=== PATIENT | female | born 1930 | race Caucasian/White ===

== ENCOUNTER 2016-05-28 10:39 | Outpatient (CLI) | payer MEDICARE, OTHER | END 2016-05-28 10:40 | disposition home or self-care (01) | DX: K59.09 Other constipation (principal); Z79.899 Other long term (current) drug therapy ==

== ENCOUNTER 2016-08-05 11:30 | Outpatient (CLI) | payer MEDICARE, OTHER | END 2016-08-05 11:31 | disposition home or self-care (01) | DX: Z51.5 Encounter for palliative care (principal); R53.83 Other fatigue; F32.9 Major depressive disorder, single episode, unspecified; R26.2 Difficulty in walking, not elsewhere classified; I69.344 Monoplegia of lower limb following cerebral infarction affecting left non-dominant side; I10 Essential (primary) hypertension; E78.5 Hyperlipidemia, unspecified; M54.6 Pain in thoracic spine; M47.9 Spondylosis, unspecified; K21.9 Gastro-esophageal reflux disease without esophagitis; F48.2 Pseudobulbar affect; Z79.82 Long term (current) use of aspirin; Z79.891 Long term (current) use of opiate analgesic; Z79.899 Other long term (current) drug therapy; Z66 Do not resuscitate ==

== ENCOUNTER 2016-08-19 11:55 | Outpatient (CLI) | payer MEDICARE, OTHER | END 2016-08-19 11:56 | disposition home or self-care (01) | DX: F51.5 Nightmare disorder (principal); R53.83 Other fatigue; F32.9 Major depressive disorder, single episode, unspecified; I69.993 Ataxia following unspecified cerebrovascular disease; I69.344 Monoplegia of lower limb following cerebral infarction affecting left non-dominant side; I10 Essential (primary) hypertension; K21.9 Gastro-esophageal reflux disease without esophagitis; K59.09 Other constipation; F48.2 Pseudobulbar affect; Z66 Do not resuscitate ==

== ENCOUNTER 2017-01-10 12:45 | Outpatient (CLI) | payer MEDICARE, OTHER ==
--- NOTE | 2017-01-10 21:04 | PROVIDER PROGRESS NOTE ---
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 She has residual left sided weakness, left foot drag, some increase in dysphagia last few weeks and increase in fatigue and wondering if had more neuro symptoms. Patient did not follow up with neurologist, and has been mostly homebound since spring visit with palliative care. Patient's anxiety regarding original conversation with PCP, remains a focus of distress, now past her "six months" and has not had a life ending event. Revisited again, looking at risk factors and consideration of further service support, was done in the context of her condition. She had been very focused on the media and the opioid crisis so had stopped taking her hydrocodone 5 mg/ 325 mg APAP and called yesterday with excrutiating pain and bedbound, had been encouraged to take at least a half and education done on proper use in chronic pain syndrome such as she had. Today I find her much relieved, had taken a half this AM and able to sit in chair. She also is complaining of severe GERD at night with taking of Peptobismal without relief, interfering with sleep. Social History - Living Situation Living arrangement: At home Living Situation: With spouse/s.o. (patient alone most days as continues to work to help with finances of daughter; multiple stressors.) Support System: Son last June; daughter with significant health problems, does provide some support with visits; continuing to work; Medications/Allergies - Medications Home Medications: Ambulatory Orders Medication Instructions Recorded Confirmed Hydrochlorothiazide 25 mg PO DAILY 05/08/14 01/11/17 HYDROcod/ACETAM 5/325 [Vicodin 1 ea PO TID PRN 07/18/15 01/11/17 5/325] Losartan Potassium 100 mg PO DAILY 08/08/15 01/11/17 Aspirin [Adult Low Dose Aspirin EC] 81 mg PO DAILY 01/11/17 01/11/17 Bacitracin/Polymyxin B Sulfate 1 applic TOP DAILY PRN 01/11/17 01/11/17 [Bacitracin-Polymyxin Eye Oint] Docusate Sodium 400 mg PO DAILY 01/11/17 01/11/17 Famotidine [Pepcid AC] 10 mg PO DAILY 01/11/17 01/11/17 Senna [Senokot] 34.4 gm PO DAILY 01/11/17 01/11/17 Ubidecarenone [Coenzyme Q-10] 200 mg PO DAILY 01/11/17 01/11/17 - Allergies Allergies/Adverse Reactions: Allergies Allergy/AdvReac Type Severity Reaction Status Date / Time [id number]-[id number] Reductase AdvReac Severe Unknown Verified 01/11/17 11:20 Inhibitor Review of Systems - Constitutional Constitutional: reports: Fatigue (feels fatigue has dramatically increased over last several weeks; worried may be extension of stroke symptoms), Weakness, Weight gain. denies: Fever, Chills - Eyes Eyes: reports: Vision loss (has trouble with "crusting" uses ointment at times with relief; out of rx) - Ears, Nose & Throat Ears, Nose & Throat: reports: Hearing loss, Other (reports intermittent dysphagia; some noted increase difficulty with chewing; following a mechanical soft diet; does not cook much-tend to get take out often) - Cardiovascular Cariovascular: reports: Exertional dyspnea, Decr. exercise tolerance. denies: Irregular heart rate, Chest pain, Orthopnea - Respiratory Respiratory: reports: SOB with exertion. denies: Cough, Orthopnea - Gastrointestinal Gastrointestinal: reports: Constipation (alf; controlled mostly with bowel meds) - Genitourinary Genitourinary: reports: Urgency - Musculoskeletal Musculoskeletal: reports: Back pain (long standing spinal stenosis; usually gets "injections" last one several months ago without relief), Limited range of motion, Muscle weakness - Integumentary Integumentary: reports: Dryness - Neurological Neurological: reports: Memory problems, Pre-existing deficit, Abnormal gait - Psychiatric Psychiatric: reports: Depression, Anxiety (see palliative care discussion) - Endocrine Endocrine: reports: Other (no hx diabetes/hypothyroidsim) - Hematologic/Lymphatic Hematologic/Lymphatic: denies: Recurrent infections - All Other Systems All Other Systems: reports: Reviewed and negative Physical Examination - Vital Signs Temperature: 97.7 C Pulse Rate: 77 Respiratory Rate: 18 O2 Saturation: 95 (ra at rest) Blood Pressure: 122/78 - Physical Exam General Appearance: positive: Mild distress, Anxious Eyes Bilateral: positive: Conjunctivae nml. negative: No scleral icterus ENT: positive: No signs of dehydration, Other (did not observe difficulty with swallowing water at time of visit) Neck: positive: Trachea midline Respiratory: positive: Breath sounds nml, Other (breathlessness with activity of ambulating to BR) Cardiovascular: positive: Regular rate & rhythm Abdomen: positive: Nml bowel sounds, No distention Skin: positive: Pallor Extremities: positive: Other (needing to use lift chair to get from sitting to standing; able to ambulate to bathroom with 4WW; gait stooped; left leg drag; uneven animal trapper but functional;) Neurologic/Psychiatric: positive: Oriented x3, Other (patient has pseudobulbar effect; easily elicited crying; patient finds very embarassing; does not perceive herself as depressed) Palliative Care - POLST Patient has POLST: Yes POLST Status: DNR, Comfort Measures (patient clear on goal no intervention if unable to be independent or live at home; does not want to return to [place]) Pain: Pain worsening, Location (back pain; lower lumbar area), Severity (severe with increase in standing/activity) Drowsiness: Moderate (4-6) (patient sleeping (when able) 12 hours at night; nap 1-2 hours during day) Nausea: None Anxiety: Mild (1-3) Dyspnea: Mild (1-3) Anorexia: None Insomnia: Sleeps poorly (attributes to GERD symptoms) Feelings of wellbeing/Perceived Quality of Life: Worsening (feels acceptable at current level but does continue to decline) Performance Status: Palliative Care Performance Status [50%]. patient spends most of the time in her recliner or bed. She is able to with lift chair independently ambulate with 4WW. Denies any falls though balance impacted. helps her with shower. - Palliative Care Discussion: Patient had been "waiting" for the 6 months ciarra from when she was explained she had a limited life expectancy, though this has been revisited before in our visits, spend time processing her concerns and fears. She has had some functional decline, possibly attributed to her risk of strokes, but no acute changes and they are still managing her care though is difficult on them both. Patient worried about not being independent and needing to go to [place] if worsens or has another stroke; husbands goal to keep her at home, though realistic and does not want to promise something he can't deliver on. With current financial stressors, has not followed through on hiring help he perceives he may as well stay home if spends money on caregiving. Patient remains isolated, daughter visits, few friends. Her "sabianism beliefs" are what keep her going and bring her comfort. Declined though Palliative Care Revenue Specialist. Impression and Recommendations - Palliative Care Impression: This is a homebound 86 year old woman who is living with the sequela of her multiple CVAs. She is at high risk for an end of life event given her history of strokes/hereditary hyperlipidmia and sedentary lifestyle. She presents today with uncontrolled pain secondary to stopping opioids for her spinal stenosis, anxiety, and anticipatory grief. Recommendations/Counseling Done: 1. Spinal stenosis. Pain has been managed before on hydrocodone 5 mg/325 mg; patient did get relief with even the 1/2 tab yesterday and this am. Counseling on opioid use and encouraged to continue; patient reassured with low dose and frequency not concerned about her use, this seem to reassure her. Her pain is intermittent and exacerbated with activity so short acting vs long acting remains appropriate. New Rx written for 90 tabs. 2. GERD. Patient using Pepcid AC only in the AM, instructed to take second dose at PM, reviewed inst. with who does medications. 3. Fatigue, multifactorial in origin. Will go ahead and draw labs today to see if there is anything that might be impacting. 4. Advanced Care Planning. Counseling provided to normalize her feelings of anticipatory grief and vulnerability. Goals and POLST in place. Would hope for a at home if she were to have an "event". Reviewed currently does not meet hospice criteria, though in agreement with her statement "I would be surprised if I were here in 6 months". ADDENDUM: 01/11 0900 am. Call from patient slept well, Pepcid at night helped, she is feeling better overall with having processed her anxiety. Reviewed her labs; some diminished kidney function-reviewed need to improve fluid intake. No other changes at this time, satisfied with plan. Will see in 4-6 weeks unless she contacts me, encouraged to reach out sooner next time (had left it to her when to meet again). Will have TIRE ASSEMBLER reach out as well. Time Spent: 60 minutes with greater than 50% done in counseling for opioid use/safety; review of goals and anticipatory guidance.
== END 2017-01-10 12:46 | disposition home or self-care (01) ==
LOC: PC 12:45
PROVIDERS: ATTEND Nurse Practitioner Adult Health
DX: Z51.5 Encounter for palliative care (principal); I69.954 Hemiplegia and hemiparesis following unspecified cerebrovascular disease affecting left non-dominant side; E78.5 Hyperlipidemia, unspecified; M48.00 Spinal stenosis, site unspecified; K21.9 Gastro-esophageal reflux disease without esophagitis; R53.83 Other fatigue; F41.9 Anxiety disorder, unspecified; F32.9 Major depressive disorder, single episode, unspecified; Z66 Do not resuscitate
CPT/HCPCS: 99350

== ENCOUNTER 2017-01-10 13:50 | Outpatient (CLI) | payer MEDICARE, OTHER ==
[2017-01-10 15:10] LABS: ALBUMIN/GLOBULIN RATIO 1.2 (1.0-2.2); BILIRUBIN,TOTAL 0.4 mg/dL (0.2-1.0); CALCIUM 10.1 mg/dL (8.5-10.3); CREATININE 1.1 mg/dL (0.4-1.0); TOTAL PROTEIN 7.4 g/dL (6.7-8.2)
[2017-01-10 15:12] LABS: BASOPHILS % (AUTO) 0.4 %; EOSINOPHILS # (AUTO) 0.1 10^3/uL (0.0-0.7); EOSINOPHILS % (AUTO) 1.5 %; HCT - HEMATOCRIT 40.1 % (37.0-47.0); HGB - HEMOGLOBIN 13.8 g/dL (12.0-16.0); LYMPHOCYTES # (AUTO) 3.1 10^3/uL (1.5-3.5); LYMPHOCYTES % (AUTO) 36.6 %; MEAN CORPUSCULAR HEMOGLOBIN 30.9 pg (27.0-31.0); MEAN CORPUSCULAR HGB CONC 34.4 g/dL (32.0-36.0); MEAN CORPUSCULAR VOLUME 89.9 fL (81.0-99.0); MEAN PLATELET VOLUME 9.9 fL (7.9-10.8); MONOCYTES # (AUTO) 0.6 10^3/uL (0.0-1.0); NEUTROPHILS # (AUTO) 4.6 10^3/uL (1.5-6.6); NEUTROPHILS % (AUTO) 54.5 %; NUCLEATED RED BLOOD CELLS AUTO 0.1 /100WBC; RED BLOOD COUNT 4.46 10^6/uL (4.20-5.40); RED CELL DISTRIBUTION WIDTH 12.8 % (12.0-15.0); UNCORRECTED WHITE BLOOD COUNT 8.5 x10^3/uL; WHITE BLOOD COUNT 8.5 x10^3/uL (4.8-10.8)
== END 2017-01-10 13:51 ==
LOC: LAB.R 13:50
PROVIDERS: ATTEND Nurse Practitioner Adult Health
DX: Z79.899 Other long term (current) drug therapy (principal)
CPT/HCPCS: 80053; 85025

== ENCOUNTER 2017-02-17 12:15 | Outpatient (CLI) | payer MEDICARE, OTHER ==
--- NOTE | 2017-02-17 17:25 | CONSULTATION NOTE ---
Palliative Care Follow Up - Referral Referring Provider: Nikole Stokes PA-C Time of Visit: [id number] Referral setting: Home (patient is seen in her home setting secondary to it's a taxing and considerable effort to leave the home related to her fatigue and left hemiplegia; difficulty walking) Referral Reason: Left Hemiplegia - Information Sources History/Review of Systems obtained from: Patient Exam limitations: No limitations - History of Present Illness Update Brief HPI Update: This is an 86-year-old woman with a history of multiple strokes, has hereditary hyperlipidemia unable to tolerate statins, presents with left hemiplegia, and severe spinal stenosis. She does have some residual dysphasia, ongoing fatigue , but has had no recurrent acute symptoms of TIAs and stroke. Her pain has improved to the point she has not needed her hydrocodone, and is managing her spinal stenosis and back pain with APAP twice a day. She is also had resolution of her severe GERD at night, with adding Pepcid AC in the evening. Labs did not reveal from last visit anemia, does have some worsening renal function, but does not want further work up or MD visits. Agreed to follow up labs in 3 months. Patient is requesting a [id number] for obtaining a lift chair. She has used one since her original stroke, at this time though is going to pursue follow up with her Medicare benefit. Her height is 5 3-1/2 weight 158. She does meet criteria I will dictate a [id number], she is getting up from would be furniture. Social History - Living Situation Living arrangement: At home Living Situation: With spouse/s.o. Support System: Has hired assistance 2 hours twice a week. Her Charles still remains a primary caregiver. Occasionally they get relief with some support from her daughter. does help her bathe. Medications/Allergies - Medications Home Medications: Ambulatory Orders Medication Instructions Recorded Confirmed Hydrochlorothiazide 25 mg PO DAILY 05/08/14 02/17/17 HYDROcod/ACETAM 5/325 [Vicodin 1 ea PO TID PRN 07/18/15 02/17/17 5/325] Losartan Potassium 100 mg PO DAILY 08/08/15 02/17/17 Aspirin [Adult Low Dose Aspirin EC] 81 mg PO DAILY 01/11/17 02/17/17 Bacitracin/Polymyxin B Sulfate 1 applic TOP DAILY PRN 01/11/17 02/17/17 [Bacitracin-Polymyxin Eye Oint] Docusate Sodium 400 mg PO DAILY 01/11/17 02/17/17 Famotidine [Pepcid AC] 10 mg PO BID 01/11/17 02/17/17 Senna [Senokot] 34.4 gm PO DAILY 01/11/17 02/17/17 Ubidecarenone [Coenzyme Q-10] 200 mg PO DAILY 01/11/17 02/17/17 - Allergies Allergies/Adverse Reactions: Allergies Allergy/AdvReac Type Severity Reaction Status Date / Time Zekwira-Ied-Udv Reductase AdvReac Severe Unknown Verified 01/11/17 11:20 Inhibitor Review of Systems - Constitutional Constitutional: reports: Fatigue, Weight gain (reports eating too many snacks; does not cook have fast food often) - Eyes Eyes: reports: Vision loss, Other (ointment has improved redness; uses) - Ears, Nose & Throat Ears, Nose & Throat: reports: Dry mouth - Cardiovascular Cardiovascular: reports: Decr. exercise tolerance. denies: Chest pain - Respiratory Respiratory: reports: SOB with exertion. denies: Cough - Gastrointestinal Gastrointestinal: reports: Constipation (managed), Good appetite - Genitourinary Genitourinary: denies: Incontinence - Musculoskeletal Musculoskeletal: reports: Stiffness, Limited range of motion (left leg related to hemiplegia; weakness left arm), Muscle weakness, Assistive devices (uses 4 wheeled walker; has to assist from bed), Transfer issues (needing new lift chair; did not go through Medicare; will try and facilitate face to face) - Integumentary Integumentary: reports: Dryness - Neurological Neurological: reports: General weakness, Dizziness (occasional; more balance issues), Memory problems (mild) - Psychiatric Psychiatric: reports: Depression (depressed at times; able to redirect; gets sad about son's last fall; has gia that she depends on; found WOOL HANDLER visit very helpful), Other (bulbar; easily laughs/cries finds embarassing) - Hematologic/Lymphatic Hematologic/Lymphatic: denies: Anemia, Recurrent infections - All Other Systems All Other Systems: reports: Reviewed and negative Physical Exam - Vital Signs Temperature: 97.1 C Pulse Rate: 66 Respiratory Rate: 18 O2 Saturation: 97 (ra @ rest) Blood Pressure: 162/84 - Physical Exam General Appearance: positive: Alert Eyes Bilateral: positive: No lid inflammation, Conjunctivae nml ENT: positive: No signs of dehydration Neck: positive: No JVD, Trachea midline Cardiovascular: positive: Regular rate & rhythm Respiratory: positive: Breath sounds nml Abdomen: positive: Non-tender, Soft, Nml bowel sounds Skin: positive: Pallor, Dryness. negative: Pressure wound Extremities: positive: No pedal edema, Other (unable to weight bear on left leg or use for standing; left arm weakness) Neurologic/Psychiatric: positive: Oriented x3, Mood/affect nml, Weakness Palliative Care - POLST Patient has POLST: Yes POLST Status: DNR, Comfort Measures Pain: Pain improved, Location (mid back; stenosis, has improved using APAP about twice a day; uses vicodin only if severe; feels better overall) Tiredness/Fatigue: Moderate (4-6) (does take naps am and afternoon) Drowsiness/Sedation: None Nausea: None Depression: Mild (1-3) Anxiety: Mild (1-3) Dyspnea: Mild (1-3) (with activity) Anorexia: None Sleep: Sleeps well Constipation: Yes, Managed Feelings of wellbeing/Perceived Quality of Life: Good, Acceptable Impression and Recommendations - Palliative Care Impression: This is an 86-year-old woman who is living with the sequela of her multiple CVAs. This includes left hemiplegia of her left lower extremity and left hemiparesis of her left upper extremity. She is at high risk for an end-of- life event given her history of stroke/hereditary hyperlipidemia and sedentary lifestyle. She does present today with her pain controlled related to her spinal stenosis. She does have improved symptoms from her GERD and her depression is better. Recommendations/Counseling Done: 1. Spinal stenosis. Pain has improved, she is managing mostly with her acetaminophen 500 mg 2 tabs twice daily, she does have the hydrocodone for breakthrough pain if needed. Her pain is intermittent and exacerbated with activity. The lift chair does help her with minimizing the stress on her lower back. 2 GERD. Patient is taking the Pepcid AC twice daily with relief of her symptoms. She is sleeping better. 3. Renal compromise. Patient is pushing fluids, is doing much better with this. Did agree will recheck in 3 months. She is unable to get out for further physician appointments. Patient is satisfied with the plan. 4. Fatigue, multifactorial in origin. She has had some improvement is trying to be more active, this is with some limitation because she is home alone by herself. She does have [employer]. 5. Advanced care planning. She did enjoy the palliative care social workers visit. Remains somewhat anxious about having "independent". Continues want to focus on staying at home, she does perceive her current quality of life as quite acceptable. FACE to FACE Patient is unable to stand on her own secondary to left hemiplegia as a result of a stroke. She needs a lift chair to get from sitting to standing and she cannot bear weight reliably, nor does she have the quad strength, to push off independently. She also has upper extremity weakness and is unable to fully get from sitting to standing as well in any of her chairs. The patient can use and operate the lift chair independently, and once upright she is able to stand and balance and move forward with the assistance of her 4 wheeled walker. The lift chair is prescribed as a treatment to ensure that the patient can safely get from sitting to standing, is able to transfer to her front wheeled walker, and to prevent falls. She has had physical therapy as in intervention. Time Spent: 30 minutes with greater than 50% of this done in counseling regarding depression , pain management, and coordination of care in facilitating [id number] for lift chair.
== END 2017-02-17 12:16 | disposition home or self-care (01) ==
LOC: PC 12:15
PROVIDERS: ATTEND Nurse Practitioner Adult Health
DX: Z51.5 Encounter for palliative care (principal); I69.354 Hemiplegia and hemiparesis following cerebral infarction affecting left non-dominant side; I69.321 Dysphasia following cerebral infarction; M48.04 Spinal stenosis, thoracic region; Z79.891 Long term (current) use of opiate analgesic; K21.9 Gastro-esophageal reflux disease without esophagitis; Z79.82 Long term (current) use of aspirin; K59.00 Constipation, unspecified; R06.09 Other forms of dyspnea; M62.81 Muscle weakness (generalized); F32.9 Major depressive disorder, single episode, unspecified; Z66 Do not resuscitate
CPT/HCPCS: 99348

== ENCOUNTER 2017-04-14 21:19 | Outpatient (CLI) | payer MEDICARE, OTHER ==
--- NOTE | 2017-04-15 12:02 | CONSULTATION NOTE ---
Palliative Care Follow Up - Referral Referring Provider: Nikole Stokes PA-C Time of Visit: [id number] Referral setting: Home (Patient is seen in the home setting secondary is considerable and taxing effort for the patient to leave the home secondary to her left sided weakness as well as back pain.) Referral Reason: Acute on Chronic Back Pain - Information Sources History/Review of Systems obtained from: Patient Exam limitations: No limitations Social History - Living Situation Living arrangement: At home Living Situation: With spouse/s.o. Support System: Does hire occasional shift work as well as her daughter provide support. Her still is working but comes and checks on her frequently. Medications/Allergies - Medications Home Medications: Ambulatory Orders Medication Instructions Recorded Confirmed Hydrochlorothiazide 25 mg PO DAILY 05/08/14 04/15/17 HYDROcod/ACETAM 5/325 [Vicodin 1 ea PO TID PRN 07/18/15 04/15/17 5/325] Losartan Potassium 100 mg PO DAILY 08/08/15 04/15/17 Aspirin [Adult Low Dose Aspirin EC] 81 mg PO BID 01/11/17 04/15/17 Bacitracin/Polymyxin B Sulfate 1 applic TOP DAILY PRN 01/11/17 04/15/17 [Bacitracin-Polymyxin Eye Oint] Docusate Sodium 400 mg PO DAILY 01/11/17 04/15/17 Famotidine [Pepcid AC] 10 mg PO BID 01/11/17 04/15/17 Senna [Senokot] 34.4 gm PO BID 01/11/17 04/15/17 Ubidecarenone [Coenzyme Q-10] 200 mg PO DAILY 01/11/17 04/15/17 Metoprolol Tartrate 25 mg PO BID 04/15/17 04/15/17 - Allergies Allergies/Adverse Reactions: Allergies Allergy/AdvReac Type Severity Reaction Status Date / Time Ueecupr-Yfa-Gse Reductase AdvReac Severe Unknown Verified 01/11/17 11:20 Inhibitor Review of Systems - Constitutional Constitutional: reports: Fatigue, Weight stable - Eyes Eyes: reports: Vision loss - Ears, Nose & Throat Ears, Nose & Throat: reports: Dry mouth - Cardiovascular Cardiovascular: reports: Decr. exercise tolerance. denies: Chest pain, Lightheadedness - Respiratory Respiratory: reports: SOB with exertion. denies: Cough - Gastrointestinal Gastrointestinal: reports: Constipation, Reflux/heartburn, Good appetite. denies: Nausea - Genitourinary Genitourinary: reports: Incontinence (MILD) - Musculoskeletal Musculoskeletal: reports: Back pain, Limited range of motion (left sided lower extremity weakness; limited rom on left arm), Muscle weakness, Assistive devices (uses 4WW) - Integumentary Integumentary: reports: Dryness - Neurological Neurological: reports: General weakness, Abnormal gait, Other (denies increase in difficulty swallowing) - Psychiatric Psychiatric: reports: Depression, Other (pseudobulbar disorder; finds very embarassing wondering about new drug) - Hematologic/Lymphatic Hematologic/Lymphatic: denies: Recurrent infections - All Other Systems All Other Systems: reports: Reviewed and negative Physical Exam - Vital Signs Temperature: 97.6 C Pulse Rate: 84 Respiratory Rate: 18 Blood Pressure: 154/82 - Physical Exam General Appearance: positive: Alert, Mild distress Eyes Bilateral: positive: Normal inspection, No lid inflammation, Conjunctivae nml ENT: positive: No signs of dehydration Neck: positive: No JVD, Trachea midline Cardiovascular: positive: Regular rate & rhythm Respiratory: positive: Breath sounds nml Abdomen: positive: Soft, Nml bowel sounds Skin: positive: Pallor, Dryness. negative: Pressure wound Extremities: positive: Other (Difficulty getting from sitting to standing, uses a lift chair which has improved. Is ambulatory with left foot drag, this does though increase her pain and distress. She does spend more time in bed, she is hoping to build up her strength again, she has had home PT in the past and found it very helpful is wondering if she can initiate again. She [facility]. Does not feel OT is needed at this point in time, she is still doing her upper extremity exercises. But feels she could progress with PT) Neurologic/Psychiatric: positive: Oriented x3, Depressed mood/affect Palliative Care - POLST Patient has POLST: Yes POLST Status: DNR, Comfort Measures Pain: Pain worsening, Location, Pattern (Patient called Te[facility] with increased lower back pain. Has been intermittent in the past. Has not needed to use hydrocodone, except intermittently. She reports now it is painful even with sitting. It is exacerbated with increased activity twisting or weightbearing. She is spending more time in bed. She is using hydrocodone 5 mg/325 mg APAP 3 times daily. She is discouraged with the recurrence of pain. She has had spinal injections in the past but currently cannot get out to receive those.) Tiredness/Fatigue: Moderate (4-6) Drowsiness/Sedation: None Nausea: None Depression: Moderate (4-6) Anxiety: Mild (1-3) Dyspnea: None Anorexia: Mild (1-3) Sleep: Sleeps well Constipation: Yes, Opoid induced, Managed (Current bowel program includes for senna twice daily, to cassette sodium twice daily and uses MiraLAX when no bowel movement in greater than 24-48 hours.) Performance Status: Patient does report decline in function and ambulation. Feels she has had some extension as far as her left lower extremity weakness and increased difficulty with walking. This is also influenced by her pain. Her goals remain as independent as possible, feels like at this point in time she is ready to progress further with PT. She requests that I follow up and see if she would qualify at this point in time. I do believe she would benefit and *providing [id number] for patient's Physical Therapy to provide progressive home exercise program; strengthening and balance work. As well as other pain relieving measures for her lower back pain. - Palliative Care Discussion: Patient is reflective of increased depressive symptoms regarding time of year. She reports she is sensitive to March as this is the time she lost her son. She is quite tearful, she gets quite embarrassed because of her pseudobulbar affect with uncontrolled crying and laughing at times. She is interested in a new drug Nuedexta. She remains quite perseverative on the fact she was given a limited prognosis, she does try to stay in the moment, perceives her quality of life is good though is worsening as far as her increasing dependence. Her does come home and visit during the day to break it up on the days he works, but for the most part patient is fairly isolated Impression and Recommendations - Palliative Care Impression: This is an 86-year-old woman with the sequela of multiple strokes, including left-sided hemiplegia, pseudobulbar affect, and homebound status. She does present with depressive symptoms, an exacerbation of her acute on chronic back pain, as well as some decline in her functional status. She currently perceives her quality of life is acceptable, but very pragmatic about the seriousness of her situation. Recommendations/Counseling Done: 1. Hypertension. Patient was quite distressed as her blood pressure was noted on her wrist blood pressure cuff 170/104. I did do a manual check her blood pressure was 154/82 and was reassured. Had her demonstrate how she was using it and adjusted this. Her blood pressure cuff with the adjustments and education on how to use it properly did read fairly accurately. This is quite reassuring to her as she is really quite anxious about having another stroke. 2. Acute on chronic back pain. Patient quite fearful to take more than a full tab 3 times a day of the hydrocodone 5 mg/325 mg of APAP. Discussed strategies including use of heat, repositioning, and will explore if physical therapy is available for her to see in the home setting. Did review for acute or unrelieved pain could have a second tab, she did acknowledge this and understanding. 3. 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 She has increased her bowel program as directed counseling regarding proper use of bowel meds and strategies to manage. She has had long-term constipation currently she has been going daily with her adjustments we have made over the phone previously. 4. Depression. Patient does get quite embarrassed with her pseudobulbar affect , she does not perceive herself as significantly depressed though certainly has depressive symptoms. We did discuss benefits and burdens of starting antidepressant, she did decline in the and as she feels she is quite sensitive medications. She is going to though initiate light therapy counseling regarding proper use of this 30 minutes every morning proper positioning and encouraged to do this on a regular basis. She is interested in the medication Nuedexta, and follow-up in looking it does actually interact with quite a few of her medications, I will follow up with her PCP Nikole Stokes as they have had conversations regarding this before. I suspect related to the cost as well as the side effect profile may not be the best thing to move forward. 5. Advanced care planning. Patient does have a MEDARDO ST in place. She reports she has good support through her friends and family. She continues to be quite anxious about having a recurrent stroke or becoming more dependent. Counseling to normalize her current feelings of grief and loss and anxiety regarding this. 6. Functional decline. Patient would benefit from home physical therapy in the home, who progress lower extremity strengthening, fall recovery, and other ways to address her back pain. [facility] to see if willing to resume services. If yes will have primary care provider send order. Face-to -face provided. Time Spent: 45 minutes with greater than 50% of this done in counseling regarding depression , pain management, and anticipatory guidance.
== END 2017-04-14 21:20 | disposition home or self-care (01) ==
LOC: PC 21:19
PROVIDERS: ATTEND Nurse Practitioner Adult Health
DX: Z51.5 Encounter for palliative care (principal); G89.29 Other chronic pain; I69.354 Hemiplegia and hemiparesis following cerebral infarction affecting left non-dominant side; F48.2 Pseudobulbar affect; I10 Essential (primary) hypertension; K59.03 Drug induced constipation; T40.2X5D Adverse effect of other opioids, subsequent encounter; F32.9 Major depressive disorder, single episode, unspecified; M48.061 Spinal stenosis, lumbar region without neurogenic claudication
CPT/HCPCS: 99349

== ENCOUNTER 2017-06-21 12:20 | Outpatient (CLI) | payer MEDICARE, OTHER ==
--- NOTE | 2017-06-21 21:02 | CONSULTATION NOTE ---
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 There had been some distress expressed by the patient, as she been getting home physical therapy, and they have reported her blood pressures is fairly high, patient's blood pressure reading is a wrist cuff, patient was educated how to use it appropriately, and the numbers have been between 130 and 145, she is pleased with this and today her blood pressure is 142/72. There had been some conversation about adjusting her medications, patient dislikes change, and has been quite resistant to looking at doing something different. Currently her blood pressure readings are within a safe limit, will leave them as is and this is reassuring to patient. Patient does report increased back pain over the last several weeks, has been using the hydrocodone 5/325 mg 1 tab 3 times a day, though she still has residual pain as it only lasts about 4-5 hours. She is comfortable laying flat , is exacerbated when she gets up in this movement, she no longer is able to get in for her "shots" she been getting previously that had given her at least some relief. She does not identify any kind of event but does admit to increased left-sided weakness, unable to discern anything more than a few subtleties compared to previous exams, but patient is convinced she is doing much more poorly, she is having more difficulty getting from sitting to standing which does make it difficult for toileting. Her continues to work on a fairly regular basis, she is home for long periods of time, this makes him quite anxious as she is had a hard few days. Patient's other presenting symptom over the last few days has been increased GERD, we did discuss some exacerbating factors, including coffee in bed flat first thing in the morning, she does intermittently use Pepto-Bismol in addition to her Pepcid. She would like to try a different medication for her GERD. Social History - Living Situation Living arrangement: At home Living Situation: With spouse/s.o. (Patient's Charles is quite devoted, they have been for 46 years, he continues to work those several times so weak, but does come home at lunchtime to check on her.) Medications/Allergies - Medications Home Medications: Ambulatory Orders Medication Instructions Recorded Confirmed Hydrochlorothiazide 25 mg PO DAILY 05/08/14 06/21/17 HYDROcod/ACETAM 5/325 [Vicodin 1 ea PO Q4HR PRN 07/18/15 06/21/17 5/325] Losartan Potassium 100 mg PO DAILY 08/08/15 06/21/17 Aspirin [Adult Low Dose Aspirin EC] 81 mg PO BID 01/11/17 06/21/17 Bacitracin/Polymyxin B Sulfate 1 applic TOP DAILY PRN 01/11/17 06/21/17 [Bacitracin-Polymyxin Eye Oint] Docusate Sodium 400 mg PO DAILY 01/11/17 06/21/17 Senna [Senokot] 34.4 gm PO BID 01/11/17 06/21/17 Ubidecarenone [Coenzyme Q-10] 200 mg PO DAILY 01/11/17 06/21/17 Metoprolol Tartrate 25 mg PO BID 04/15/17 06/21/17 Omeprazole 20 mg PO BID 06/22/17 06/22/17 - Allergies Allergies/Adverse Reactions: Allergies Allergy/AdvReac Type Severity Reaction Status Date / Time Izhiapl-Ytf-Sjb Reductase AdvReac Severe Unknown Verified 01/11/17 11:20 Inhibitor Review of Systems - Constitutional Constitutional: reports: Fatigue, Weakness (reports increase weakness left side for about 2 weeks; gradual), Poor appetite, Weight stable - Eyes Eyes: reports: Vision loss - Ears, Nose & Throat Ears, Nose & Throat: reports: Dry mouth - Cardiovascular Cardiovascular: reports: Decr. exercise tolerance - Respiratory Respiratory: denies: Cough, Orthopnea - Gastrointestinal Gastrointestinal: reports: Constipation (controlled on current regimen), Nausea (intermittent), Reflux/heartburn (worsened for 2 weeks "feels all inflamed"), Poor appetite, Early satiety - Genitourinary Genitourinary: reports: Frequency - Musculoskeletal Musculoskeletal: reports: Back pain (exacerbated for about 2 weeks; starts with ambulation and being upright in AM), Muscle aches, Stiffness, Limited range of motion (left side weaker per report;), Muscle weakness, Assistive devices (uses walker for short distances in home; spends most of the time in recliner or bed) - Integumentary Integumentary: reports: Dryness - Neurological Neurological: reports: General weakness, Abnormal gait. denies: Headache - Psychiatric Psychiatric: reports: Depression, Anxiety - Hematologic/Lymphatic Hematologic/Lymphatic: denies: Bruising, Recurrent infections - All Other Systems All Other Systems: reports: Reviewed and negative Physical Exam - Vital Signs Temperature: 98.4 C Pulse Rate: 72 Respiratory Rate: 18 O2 Saturation: 96 (ra @ rest) Blood Pressure: 142/72 - Physical Exam General Appearance: positive: No acute distress, Anxious Eyes Bilateral: positive: Other (conjuntivae slightly reddened-reports increase irritation even with ointment) ENT: positive: No signs of dehydration Neck: positive: No JVD, Trachea midline, Stiff neck (limited ROM) Cardiovascular: positive: Regular rate & rhythm Respiratory: positive: Breath sounds nml Abdomen: positive: Non-tender, Soft, Nml bowel sounds Skin: positive: Pallor, Dryness Extremities: positive: No pedal edema, Other (feet very cold to touch). 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 negative: Facial droop Palliative Care - POLST Patient has POLST: Yes POLST Status: DNR Pain: Pain worsening, Location (reports lower back focus of pain; "hurts all over";) Tiredness/Fatigue: Moderate (4-6) Drowsiness/Sedation: Mild (1-3) Nausea: Mild (1-3) (related to GERD) Depression: Moderate (4-6) Anxiety: Moderate (4-6) Dyspnea: Mild (1-3) Anorexia: Mild (1-3) Sleep: Variable sleep pattern Constipation: Yes, Opoid induced, Managed Feelings of wellbeing/Perceived Quality of Life: Fair, Acceptable, Worsening Performance Status: Patient is mostly in her recliner or in bed, her does assist her with bathing, and now up and down off the toilet. She is having increased left- sided weakness and back pain which is limiting her mobility and also her confidence. She reports she has not had any falls. I would put her at a PPS of 40% - Palliative Care Discussion: Patient's perception is she is "going downhill", she has hit a rough patch as far as increased left-sided weakness. She is unable to recall any event, but does feel some changes as well as an exacerbation in her pain. She does remained somewhat isolated, she reports her energy is quite low, she can only tolerate small amounts of activity as well as even interaction with friends and family particularly on the phone. She is not particularly distressed by this rather pragmatic. Continues to focus on trying to stay positive, he does rely on her family and friends for support Impression and Recommendations - Palliative Care Impression: This is an 86-year-old woman with the sequela of multiple strokes, including left-sided hemiplegia, pseudobulbar affect, and homebound status. She does present today with the neck exacerbation of acute on chronic back pain, as well as continued decline in her functional status. She reports increased distress with her GERD, and like to alternate her medications and response. Will continue to provide palliative care support as it is a taxing and considerable effort for her to leave the home, but did encourage her if able to make an appointment and establish with new PCP Dr. Maldonado Recommendations/Counseling Done: 1. Acute on chronic back pain. Patient does have severe lumbar spinal stenosis , this does appear to be exacerbated with activity. She is trying her home exercise program, she is getting relief with intermittent hydrocodone 5 mg/325 mg APAP. Did encourage her to time her medication for when she is up and prior to activity. 2. Constipation related to opioid use. She is managing her bowel meds senna S/ DOS and titrating appropriately. She reports she has not needed further intervention at this point in time 3. GERD. Counseling regarding dietary modifications including cutting back on coffee particularly on empty stomach laying flat. She is dependent on her for food prep, he does admit to not being a cook, they often have fast food or take out, this most likely is adding to her difficulties. She has been on omeprazole previously does not recall why changed (PPI), currently on Pepcid ([id number]), will trial a course of the omeprazole 20 mg BID, and she will make an appt with Dr. Maldonado for further work up if not improved. 4. Hypertension. Patient's current regimen does appear to be managing her blood pressures within acceptable limits, patient does get distressed with any kind of change, she is checking on a regular basis and has not had any trends as far as escalating up. We will continue to monitor, she does know to notify me and/or her PCP if remains elevated or creeping up above 140/80 on a regular basis. 5. Advanced care planning. Patient does have high risk factors for recurrent stroke or the sequela of a fall. She is quite pragmatic, and continues with focusing on the positive, spending time with family/friends, though is stressed about being a burden or loosing further independence. 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 Time Spent: 30 minutes with greater than 50% of this done in counseling, reviewing symptom burden, addressing psychosocial distress and anticipatory guidance
== END 2017-06-21 12:21 | disposition home or self-care (01) ==
LOC: PC 12:20
PROVIDERS: ATTEND Nurse Practitioner Adult Health
DX: Z51.5 Encounter for palliative care (principal); M54.5 Low back pain; G89.29 Other chronic pain; K59.03 Drug induced constipation; T40.2X5D Adverse effect of other opioids, subsequent encounter; K21.9 Gastro-esophageal reflux disease without esophagitis; I10 Essential (primary) hypertension; I69.354 Hemiplegia and hemiparesis following cerebral infarction affecting left non-dominant side; M48.061 Spinal stenosis, lumbar region without neurogenic claudication; Z79.82 Long term (current) use of aspirin; Z79.891 Long term (current) use of opiate analgesic; R53.83 Other fatigue; M62.81 Muscle weakness (generalized); F32.9 Major depressive disorder, single episode, unspecified; F41.9 Anxiety disorder, unspecified; I69.30 Unspecified sequelae of cerebral infarction; F48.2 Pseudobulbar affect; Z66 Do not resuscitate
CPT/HCPCS: 99348

== ENCOUNTER 2017-08-16 12:45 | Outpatient (CLI) | payer MEDICARE, OTHER ==
--- NOTE | 2017-08-16 20:20 | CONSULTATION NOTE ---
Palliative Care Follow Up - Referral Referring Provider: Nikole FUNES/Dr. 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 She is also had progressive pain related to her severe lumbar spinal stenosis, has been more limited as far as her fatigue, and continues to be mostly homebound she has limited functional status. She is able to ambulate short distances on a flat surface with her 4 wheeled walker, her continues to be employed, she is home sometimes by herself. She does have [employer] for support. 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 She is aware of the seriousness of her situation, though was told at some point her prognosis was poor and she still here. Her goal is to remained at home, and focus on quality of life issues. Social History - Living Situation Living arrangement: At home Living Situation: With spouse/s.o. Support System: Close to family, still working and patient home during day by self. Has [place]. Has hired housekeeping assistance. Medications/Allergies - Medications Home Medications: Ambulatory Orders Medication Instructions Recorded Confirmed Hydrochlorothiazide 25 mg PO DAILY 05/08/14 08/16/17 HYDROcod/ACETAM 5/325 [Vicodin 1 ea PO Q4HR PRN 07/18/15 08/16/17 5/325] Losartan Potassium 100 mg PO DAILY 08/08/15 08/16/17 Aspirin [Adult Low Dose Aspirin EC] 81 mg PO BID 01/11/17 08/16/17 Bacitracin/Polymyxin B Sulfate 1 applic TOP DAILY PRN 01/11/17 08/16/17 [Bacitracin-Polymyxin Eye Oint] Docusate Sodium 400 mg PO DAILY 01/11/17 08/16/17 Senna [Senokot] 34.4 gm PO DAILY 01/11/17 08/16/17 Ubidecarenone [Coenzyme Q-10] 200 mg PO DAILY 01/11/17 08/16/17 Metoprolol Tartrate 25 mg PO BID 04/15/17 08/16/17 Omeprazole 20 mg PO DAILY PM PRN 06/22/17 08/16/17 Erythromycin Base [Erythromycin 1 applic EACHEYE DAILY PRN 08/16/17 08/16/17 Ophthalmic Ointment] Triamcinolone 0.1% Cream [Kenalog 1 applic TOP BID PRN 08/16/17 08/16/17 0.1% Cream] - Allergies Allergies/Adverse Reactions: Allergies Allergy/AdvReac Type Severity Reaction Status Date / Time [id number]-[id number] Reductase AdvReac Severe Unknown Verified 01/11/17 11:20 Inhibitor Review of Systems - Constitutional Constitutional: reports: Fatigue (worsening; attributes to side effects of stroke), Weight gain (thinks has gained about 10 pounds) - Eyes Eyes: reports: Corrective lenses - Ears, Nose & Throat Ears, Nose & Throat: reports: Other (denies dysphagia; watched what eats) - Cardiovascular Cardiovascular: reports: Decr. exercise tolerance, Other (blood pressures have been in acceptable range). denies: Chest pain, Edema - Respiratory Respiratory: reports: SOB with exertion. denies: Cough, SOB at rest - Gastrointestinal Gastrointestinal: reports: Constipation (controlled with bowel program), Reflux/ heartburn (improved; using omeprazole only as needed), Good appetite. denies: Nausea - Genitourinary Genitourinary: denies: Incontinence - Musculoskeletal Musculoskeletal: reports: Back pain, Stiffness, Limited range of motion (left sided weakness), Muscle weakness, Assistive devices (uses 4WW in home; wheelchair if goes out) - Integumentary Integumentary: reports: Rash (intermittent uses triamcinolone with relief;) - Neurological Neurological: reports: General weakness. denies: Headache, Dizziness, Memory problems - Psychiatric Psychiatric: denies: Depression (has blue days;but denies depressive symptoms) - Endocrine Endocrine: denies: Diabetes type 2, Hypothyroidism - Hematologic/Lymphatic Hematologic/Lymphatic: denies: Recurrent infections - All Other Systems All Other Systems: reports: Reviewed and negative Physical Exam - Vital Signs Temperature: 98.4 C Pulse Rate: 73 Respiratory Rate: 18 O2 Saturation: 98 (ra @rest) Blood Pressure: 132/80 - Physical Exam General Appearance: positive: No acute distress Eyes Bilateral: positive: No lid inflammation, Conjunctivae nml, Other (eyes water easily) ENT: positive: No signs of dehydration Neck: positive: No JVD, Trachea midline Cardiovascular: positive: Regular rate & rhythm Respiratory: positive: Breath sounds nml Abdomen: positive: Soft Skin: positive: Pallor, Dryness Extremities: positive: No pedal edema, Other (patient with some difficulty getting sitting to standing; gait uneven; left side dragging but functional) Neurologic/Psychiatric: positive: Oriented x3, Mood/affect nml Palliative Care - POLST Patient has POLST: Yes POLST Status: DNR, Comfort Measures Pain: Pain worsening, Location (patient feels back pain worsening; increased pain with standing and unable to tolerate more than 10 minutes. Using the hydrocodone 5 mg/325 mg APAP 2-3 times a day, with relief. Finding herself more time in bed.) Tiredness/Fatigue: Severe (7-10) (attributes to "post stroke" issues; even talking on phone at times finds fatigue) Drowsiness/Sedation: Mild (1-3) Nausea: None Depression: Mild (1-3) Anxiety: Moderate (4-6) Dyspnea: Mild (1-3) Anorexia: None Sleep: Sleeps well Constipation: Yes, Opoid induced, Managed Feelings of wellbeing/Perceived Quality of Life: Fair, Acceptable, Worsening Performance Status: Patient spends most of time in bed/recliner. does assist with bathing, he does meal prep but is "not a cook" use fast food quite a bit. Does have practice architect that comes weekly, feels can ask and afford more help from her if needed. Is able to ambulate on flat surface in house for short distances, has back pain and she is worried about asking him to assist her as he might not be able to or hurt himself. - Palliative Care Discussion: She continues to be distressed with prognosis given over a year ago about 2 weeks to 6 months. Nikole FUNES has since left, encouraged to make appointment with Dr. Maldonado so has PCP support. Problem solved to have caregiver to provide assistance with transportation. Patient aware of slight functional decline, but no acute symptoms of recurrent CVAs, but aware at risk does not want to end up in intermediate if possible, but wants what best for her . Impression and Recommendations - Palliative Care Impression: This is a hanna 86 year old woman with residual symptoms of multiple strokes with mild left hemiplegia, perceived progressive fatigue and poor activity tolerance, and underlying chronic back pain related to lumbar stenosis. Patient lives a fairly solitary isolated life, remains fairly upbeat, does have family support. Palliative care providing intermittent home visit secondary considerable and taxing effort to get to PCP, as well as counseling for symptom management. Recommendations/Counseling Done: 1.Acute on chronic back pain secondary lumbar spinal stenosis. She is managing with intermittent hydrocodone 5 mg/725 mg APAP 2-3 times a day, she is less able to participate in home exercise program, and spending more time in bed. 2. GERD. Reports symptoms have improved over the last few weeks, only using omeprazole as needed, has made some dietary adaptations but limited given the fact her is doing the cooking, and often uses fast food. 3. Hypertension. Patient's current regimen does appear to managing her blood pressures within acceptable limits. Patient is quite variable when she is stressed. No changes needed at this time. 5. Advanced care planning. Patient does have high risk factors for recurrent stroke with the sequela of a fall. She remains quite pragmatic, have recommended though she follow up with her identified new PCP, Dr. Maldonado. Problem solving done regarding having assistance with transportation, but at the various is she is worried about her and been able to manage the wheelchair. She will make an appointment in follow-up. Did reassure her can see her on a regular basis as needs come up, particularly since managing her pain medications. Time Spent: 45 minutes with greater than 50% of this done in counseling regarding pain and management of depression, review of medications, and anticipatory guidance.
== END 2017-08-16 12:46 | disposition home or self-care (01) ==
LOC: PC 12:45
PROVIDERS: ATTEND Nurse Practitioner Adult Health
DX: Z51.5 Encounter for palliative care (principal); G89.29 Other chronic pain; M54.9 Dorsalgia, unspecified; K21.9 Gastro-esophageal reflux disease without esophagitis; I10 Essential (primary) hypertension; I69.354 Hemiplegia and hemiparesis following cerebral infarction affecting left non-dominant side; E78.4 Other hyperlipidemia; Z79.82 Long term (current) use of aspirin; Z79.891 Long term (current) use of opiate analgesic; M62.81 Muscle weakness (generalized); K59.03 Drug induced constipation; T40.2X5D Adverse effect of other opioids, subsequent encounter; Z66 Do not resuscitate
CPT/HCPCS: 99349

== ENCOUNTER 2017-10-27 14:06 | Outpatient (CLI) | payer MEDICARE, OTHER | END 2017-10-27 14:07 | disposition EMS.NT | LOC: EMS 14:06 | PROVIDERS: ATTEND Surgery | DX: Z03.89 Encounter for observation for other suspected diseases and conditions ruled out (principal) ==

== ENCOUNTER 2017-11-04 11:30 | Outpatient (CLI) | payer MEDICARE, OTHER ==
--- NOTE | 2017-11-04 17:01 | CONSULTATION NOTE ---
Palliative Care Follow Up - Referral Referring Provider: Dr. 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 She presents today with increased symptoms and pain from her hemorrhoids, a recent fall, and continued difficulty with progressive back pain. She does perceive that she is doing fairly well, though does feel like her fatigue is worsening, she is sleeping more, and having some difficulty with word finding and speech at the end of the day. Social History - Living Situation Living arrangement: At home Living Situation: With spouse/s.o. Support System: She lives with her Charles, he is very hard of hearing, he absolutely adores her. He does still work some, and she is home alone during the day, but has people frequently checking on her as well as [employer].She is quite distressed as her daughter is at [facility] with a recent stroke, at age 28 she had brain surgery for abscesses and they thought she was can lose her then but has continued to live at age 63, so is quite grateful but is quite anxious that she is going to get home and recover. Medications/Allergies - Medications Home Medications: Ambulatory Orders Medication Instructions Recorded Confirmed Hydrochlorothiazide 25 mg PO DAILY 05/08/14 11/04/17 HYDROcod/ACETAM 5/325 [Vicodin 1 ea PO Q4HR PRN 07/18/15 11/04/17 5/325] Losartan Potassium 100 mg PO DAILY 08/08/15 11/04/17 Aspirin [Adult Low Dose Aspirin EC] 81 mg PO BID 01/11/17 11/04/17 Docusate Sodium 400 mg PO DAILY 01/11/17 11/04/17 Senna [Senokot] 34.4 gm PO DAILY 01/11/17 11/04/17 Ubidecarenone [Coenzyme Q-10] 200 mg PO DAILY 01/11/17 11/04/17 Metoprolol Tartrate 25 mg PO BID 04/15/17 11/04/17 Omeprazole 20 mg PO BID 06/22/17 11/04/17 Erythromycin Base [Erythromycin 1 applic EACHEYE DAILY PRN 08/16/17 11/04/17 Ophthalmic Ointment] Triamcinolone 0.1% Cream [Kenalog 1 applic TOP BID PRN 08/16/17 11/04/17 0.1% Cream] - Allergies Allergies/Adverse Reactions: Allergies Allergy/AdvReac Type Severity Reaction Status Date / Time Qmsblmi-Boo-Lqs Reductase AdvReac Severe Unknown Verified 01/11/17 11:20 Inhibitor Review of Systems - Constitutional Constitutional: reports: Fatigue (worsening, needing more naps), Weakness, Weight gain - Ears, Nose & Throat Ears, Nose & Throat: reports: Postnasal drainage, Dry mouth - Cardiovascular Cardiovascular: reports: Decr. exercise tolerance. denies: Chest pain, Edema - Respiratory Respiratory: denies: Cough, SOB at rest - Gastrointestinal Gastrointestinal: reports: Constipation (more hardened stool and straining; exacerbated her hemmorhoids/no xiomara bleeding just discomfort), Good appetite. denies: Abdominal pain, Nausea, Reflux/heartburn (currently controlled on med) - Genitourinary Genitourinary: denies: Incontinence - Musculoskeletal Musculoskeletal: reports: Back pain (Unable to tolerate standing greater than 5- 10 minutes without severe sharp shooting pain. At rest patient is without pain) , Muscle weakness (reports some increase in weakness left side from baseline; no acute changes), Assistive devices (Uses walker to ambulate through house.Does spend most of her time sitting in her recliner and/or in bed napping. ) - Integumentary Integumentary: reports: Dryness - Neurological Neurological: reports: General weakness, Memory problems (STM but A and O x3) - Psychiatric Psychiatric: denies: Depression, Anxiety - Hematologic/Lymphatic Hematologic/Lymphatic: denies: Recurrent infections - All Other Systems All Other Systems: reports: Reviewed and negative Physical Exam - Vital Signs Temperature: 97.7 C Pulse Rate: 65 Respiratory Rate: 18 O2 Saturation: 96 (ra @ rest) Blood Pressure: 138/70 - Physical Exam General Appearance: positive: No acute distress, Alert Eyes Bilateral: positive: Normal inspection ENT: positive: No signs of dehydration Neck: positive: No JVD, Trachea midline Cardiovascular: positive: Regular rate & rhythm Respiratory: positive: Breath sounds nml Abdomen: positive: Non-tender, Soft, Nml bowel sounds Skin: positive: Pallor, Dryness Extremities: positive: No pedal edema Neurologic/Psychiatric: positive: Oriented x3, Mood/affect nml, Slurred/abnml speech (mild only). negative: Facial droop Palliative Care - POLST Patient has POLST: Yes POLST Status: DNR, Comfort Measures Pain: Pain worsening, Location (back with standing;) Tiredness/Fatigue: Moderate (4-6) Drowsiness/Sedation: Mild (1-3) Nausea: None Depression: Mild (1-3) Anxiety: Mild (1-3) Dyspnea: None Anorexia: None Sleep: Sleeps well Constipation: Yes, Opoid induced, Intermittent constipation Feelings of wellbeing/Perceived Quality of Life: Fair, Acceptable, No change Performance Status: Patient had a fall, did need assistance up. Attributes the fall fact she had new slippers on, tripped over them. She knew "it was a bad idea". She denies any residual injuries. Her does help her with bathing, she is independent and ambulating through the house with her 4 wheeled walker. She cannot tolerate standing for long periods of time, so has to pace her activities. - Palliative Care Discussion: Patient does present with anxiety, this is mostly related to current situation with her daughter. She herself feels like her current quality of life is acceptable. She does tire easily, and often needs to put limitations on her visitors. She does like to talk, she uses her iPad for her programs, she has a great gia, and feels her life is limited that she is quite grateful. She does understand the seriousness of her condition, is grateful to have made it to her 87th birthday, and continues to strive to focus on one day at a time. Impression and Recommendations - Palliative Care Impression: This is a hanna 87-year-old woman who continues to is somewhat limited as far as her functional status as a result of the residual symptoms of multiple strokes and her left hemiplegia. She does have moderate symptom burden with progressive fatigue, poor activity tolerance and underlying chronic back pain related to her spinal stenosis. Palliative care continue to provide intermittent home visit secondary considerable effort to get to PCP, as well as counseling for symptom management. Recommendations/Counseling Done: 1.Chronic back pain secondary to spinal stenosis. Patient is using 2-3 hydrocodone/APAP appropriately through the day. She does have fluctuating pain but it is exacerbated with increased activity, she did have increased pain for several days after her fall this is since resolving. Prescription was provided 120 tabs. 2. Hemorrhoids secondary to constipation. Patient does take 4 tabs of senna at bedtime as well as 2 softeners daily. Instructed to increase her softeners, does not want to try MiraLAX. Given prescription for Anucort HC suppositoriesTo use 1 suppository nightly for 1 week. Also instructed on over- the-counter hemorrhoidal suppositories versus external cream. Encouraged increase fluids and fiber to decrease irritation. 3. Hypertension patient's current regimen does appear to be managing her blood pressures within acceptable limits. No changes needed at this time. 4. GERD. Currently controlled. 5. Advanced care planning. Patient does have high risk factors for recurrent stroke with the sequela also of a fall. She continues to remain quite pragmatic , chooses to focus on the positive, does recognize the seriousness of her illness. She does have a MEDARD[address] ST in place, at this point would not want to be rehospitalized or have her life extended particularly if she had more deficits. Time Spent: 30 minutes with greater than 50% of this done in counseling regarding his symptoms and anticipatory guidance
== END 2017-11-04 11:31 | disposition home or self-care (01) ==
LOC: PC 11:30
PROVIDERS: ATTEND Nurse Practitioner Adult Health
DX: Z51.5 Encounter for palliative care (principal); G89.29 Other chronic pain; M48.061 Spinal stenosis, lumbar region without neurogenic claudication; K64.9 Unspecified hemorrhoids; K59.00 Constipation, unspecified; I10 Essential (primary) hypertension; K21.9 Gastro-esophageal reflux disease without esophagitis; I69.354 Hemiplegia and hemiparesis following cerebral infarction affecting left non-dominant side; R53.1 Weakness; E78.4 Other hyperlipidemia; R53.83 Other fatigue; Z66 Do not resuscitate; Z79.891 Long term (current) use of opiate analgesic; Z79.82 Long term (current) use of aspirin; Z79.2 Long term (current) use of antibiotics; Z91.81 History of falling
CPT/HCPCS: 99348

== ENCOUNTER 2018-01-10 11:45 | Outpatient (CLI) | payer MEDICARE, OTHER ==
--- NOTE | 2018-01-10 17:40 | CONSULTATION NOTE ---
Palliative Care Follow Up - Referral Referring Provider: Dr. 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 She reports intensity of the pain has increased, she is having less ability to tolerate standing greater than 5 minutes, she feels her legs are much weaker, and she is mostly chair and bedbound. She is using the hydrocodone 5 mg/ acetaminophen 325 mg about 3 times a day with good relief. She has no pain and bad and no pain in her recliner. It is with weightbearing that is most problematic for her. She is still ambulating very short distances to the bathroom, does have standby assist when her is home, and wears Lifeline when he has not. She does perceive her fatigue is worsening, she does admit to some depression, and does have some increased dizziness with standing. Social History - Living Situation Living arrangement: At home Living Situation: With spouse/s.o. Support System: Her spells is elderly as well, but continues to work related to financial stressors. He himself is hurt his back recently, she is quite concerned as he is her primary caregiver. They have hired some assistance couple times a week, this is been very much helpful for her, she is no longer able to shower so is helping her with bit baths and does errands as well as housecleaning Medications/Allergies - Medications Home Medications: Ambulatory Orders Medication Instructions Recorded Confirmed Hydrochlorothiazide 25 mg PO DAILY 05/08/14 11/04/17 HYDROcod/ACETAM 5/325 [Vicodin 1 ea PO Q4HR PRN 07/18/15 11/04/17 5/325] Losartan Potassium 100 mg PO DAILY 08/08/15 11/04/17 Aspirin [Adult Low Dose Aspirin EC] 81 mg PO BID 01/11/17 11/04/17 Docusate Sodium 400 mg PO DAILY 01/11/17 11/04/17 Senna [Senokot] 34.4 gm PO DAILY 01/11/17 11/04/17 Ubidecarenone [Coenzyme Q-10] 200 mg PO DAILY 01/11/17 11/04/17 Metoprolol Tartrate 25 mg PO BID 04/15/17 11/04/17 Omeprazole 20 mg PO BID 06/22/17 11/04/17 Erythromycin Base [Erythromycin 1 applic EACHEYE DAILY PRN 08/16/17 11/04/17 Ophthalmic Ointment] Triamcinolone 0.1% Cream [Kenalog 1 applic TOP BID PRN 08/16/17 11/04/17 0.1% Cream] - Allergies Allergies/Adverse Reactions: Allergies Allergy/AdvReac Type Severity Reaction Status Date / Time Myobsgf-Khw-Cka Reductase AdvReac Severe Unknown Verified 01/11/17 11:20 Inhibitor Review of Systems - Constitutional Constitutional: reports: Fatigue, Weight loss (152; reports she has cut out sweets this is intentional decline). denies: Fever - Eyes Eyes: reports: Vision loss - Cardiovascular Cardiovascular: reports: Lightheadedness (with standing). denies: Edema - Respiratory Respiratory: reports: SOB with exertion. denies: SOB at rest - Gastrointestinal Gastrointestinal: reports: Constipation (controls with Senna/LEIDA), Good appetite (poor diet; does not cook and often do take out), Other ( reports hemmorhoids manageable at this time) - Genitourinary Genitourinary: denies: Incontinence - Musculoskeletal Musculoskeletal: reports: Back pain, Stiffness (left side), Limited range of motion, Muscle weakness, Assistive devices (uses 4WW; rests if needs on seat) - Integumentary Integumentary: reports: Dryness - Neurological Neurological: reports: General weakness, Dizziness - Psychiatric Psychiatric: reports: Depression (daughter having major health problems; waiting on test results; feels more sad with decline in function) - Hematologic/Lymphatic Hematologic/Lymphatic: denies: Recurrent infections - All Other Systems All Other Systems: reports: Reviewed and negative Physical Exam - Vital Signs Temperature: 97.0 C Pulse Rate: 69 Respiratory Rate: 18 O2 Saturation: 96 (ra @ rest) Blood Pressure: 142/86 - Physical Exam General Appearance: positive: No acute distress, Anxious Eyes Bilateral: positive: Normal inspection ENT: positive: No signs of dehydration Neck: positive: No JVD, Trachea midline Cardiovascular: positive: Regular rate & rhythm Respiratory: positive: Breath sounds nml Abdomen: positive: Non-tender, Soft Skin: positive: Pallor, Dryness Extremities: positive: No pedal edema, Other (Left leg and left arm weaker, but is functional. Patient is having more difficulty getting from sitting to standing, is more dependent on the lift chair to get her up for her walker. She is only able to tolerate being up for a few minutes before needing to sit down secondary to pain which has led to some deconditioning.) Neurologic/Psychiatric: positive: Oriented x3, Weakness Palliative Care - POLST Patient has POLST: Yes POLST Status: DNR, Comfort Measures Pain: Pain worsening, Location (lower lumbar spine see HPI. 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 She does not have numbness or tingling it is specifically related to the pain intensity) Tiredness/Fatigue: Severe (7-10) Drowsiness/Sedation: Mild (1-3) Nausea: None Depression: Moderate (4-6) Anxiety: Mild (1-3) Dyspnea: Mild (1-3) Anorexia: None Sleep: Sleeps well Constipation: Yes, Opoid induced, Managed Feelings of wellbeing/Perceived Quality of Life: Fair, Worsening Performance Status: Patient does spend most of her time in the recliner, she does ambulate back and forth the bathroom a very short distance. She is spending more time in bed secondary to the pain. She is quite fearful of becoming bedridden. She has been previously able to shower, she is not doing bad baths. - Palliative Care Discussion: Patient's biggest fear at this point in time is becoming bedridden, and being able to stay at home. Her has somewhat frail health is well, she reports her children are definitely worried about them. She would like to stay at home if at all possible, they have hired some assistance, unclear if they would be able to manage financially for more. She is also stressed about her daughter's health, her is not doing well physically either. Patient initiated conversation again regarding hospice, discussed currently her situation is of chronic illness, she does not have a terminal diagnosis. She does have goals which are consistent which is the focus on comfort only, not to return to the hospital, but at this point in time cannot prognosticate that she has been 6 months or less. She certainly of course is at high risk for recurrent stroke and sequela from deconditioning or a injury from a fall. Any of these with stress the caregiving situation, which her goal is not to be in a long-term. Impression and Recommendations - Palliative Care Impression: This is a hanna 87-year-old woman who has increased in intensity of her pain secondary to her lumbar stenosis most likely worsening. She remains resistant to further workup, our referral to specialist regarding this. Per her perception given her underlying residual symptoms of strokes and a left hemiplegia she would not be a surgical candidate anyway. Her goal is to make the most of each day, and hopefully stay at home. Palliative care continue to provide intermittent visits secondary is considerable effort to get to PCP, as well as counseling for symptom management Recommendations/Counseling Done: 1. Back pain secondary spinal stenosis. Patient does present with increasing intensity of pain, and less functional status. Patient has been using her hydrocodone 5 mg/325 mg 3 times a day with good relief, we did discuss she could increase this to 4 tabs a day as most likely it is only lasting 4-5 hours during the day when she is up and still needing to ambulate. She will trial this, Rx provided for #120 tabs. Patient does not experience pain in bed or at nighttime, she would not be appropriate for long-acting pain medication this point in time. 2. Hemorrhoids. Patient feels currently those continue to be problematic, she is using 4 tabs of senna as well as 4 softeners at bedtime. She is using external cream, has not needed the suppositories. 3. Hypertension. Blood pressure somewhat elevated, but she is quite anxious during our visit in discussing her current decline. She reports she checks her blood pressure daily, has been between 120 130/80. No changes needed at this time. 4. GERD. Currently controlled. 5. Advanced care planning. Patient does have high risk factors for recurrent stroke and sequela of a fall, she does have a MEDARDO ST in place, is more concerned as her functional status declines regarding long-term planning. She has met the palliative care social work job titles, at this point in time she has hired some assistance and feels this is adequate at this stage. She will reach out if she needs further support for long-term planning. Counseling provided and addressed regarding her questions about the role of hospice, at this point in time she would not need terminal illness criteria Time Spent: 40 minutes with greater than 50% of this done in counseling regarding depression , pain management, and anticipatory guidance
== END 2018-01-10 11:46 | disposition home or self-care (01) ==
LOC: PC 11:45
PROVIDERS: ATTEND Nurse Practitioner Adult Health
DX: Z51.5 Encounter for palliative care (principal); M48.061 Spinal stenosis, lumbar region without neurogenic claudication; I10 Essential (primary) hypertension; I69.354 Hemiplegia and hemiparesis following cerebral infarction affecting left non-dominant side; E78.5 Hyperlipidemia, unspecified; Z79.82 Long term (current) use of aspirin; K59.03 Drug induced constipation; T40.2X5D Adverse effect of other opioids, subsequent encounter; R06.09 Other forms of dyspnea; M62.81 Muscle weakness (generalized); Z66 Do not resuscitate
CPT/HCPCS: 99349

== ENCOUNTER 2018-01-31 20:56 | Outpatient (CLI) | payer MEDICARE, OTHER ==
--- NOTE | 2018-01-31 21:01 | CONSULTATION NOTE ---
Palliative Care Follow Up - Referral Referring Provider: Nurys PATTERSON/Dr. 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 Patient's functional status does fluctuate, with her increasing pain intensity, she has become more deconditioned, and spending more time in her recliner and bed. She reports her balance continues to be problematic, and has noticed a decrease in strength, as well as poor activity tolerance. She has had intermittent physical therapy with good results, but over the last few weeks to months has had a decline from her baseline. She is feeling she is at a place that she would like to try again with physical therapy, she feels like strengthening some of her muscles will help with her back pain, and is feeling motivated to move forward at this point. Patient presents with severe lower extremity weakness, left greater than right, she is spending more time in a recliner as a result of her increased lumbar stenosis pain. Her pain is exacerbated with standing for greater than 20-30 seconds, she is spending greater majority of her time in bed, I would like some home exercises to be able to do.Her blood pressures continue to be in an acceptable range, she feels she is currently not depressed, though she is quite anxious of her her daughter's recent health issues.She is also concerned about h er husbands increasing memory issues, and he won't follow up with a provider. Social History - Living Situation Living arrangement: At home Living Situation: With spouse/s.o. (Spouse continues to work, he is gone from the home several days a week, she does spend most of her time in bed or recliner during that time. He does most of the cooking, she is very seldom going out. She has hired some assistance for housekeeping and does have a caregiver who will take her to appointments if necessary. Her family are concerned, the starting to come around more often, and come every Tuesday with a meal to provide support) Medications/Allergies - Medications Home Medications: Ambulatory Orders Medication Instructions Recorded Confirmed Hydrochlorothiazide 25 mg PO DAILY 05/08/14 02/01/18 HYDROcod/ACETAM 5/325 [Vicodin 1 ea PO Q4HR PRN 07/18/15 02/01/18 5/325] Losartan Potassium 100 mg PO DAILY 08/08/15 02/01/18 Aspirin [Adult Low Dose Aspirin EC] 81 mg PO BID 01/11/17 02/01/18 Docusate Sodium 400 mg PO DAILY 01/11/17 02/01/18 Senna [Senokot] 34.4 gm PO DAILY 01/11/17 02/01/18 Ubidecarenone [Coenzyme Q-10] 200 mg PO DAILY 01/11/17 02/01/18 Metoprolol Tartrate 25 mg PO BID 04/15/17 02/01/18 Omeprazole 20 mg PO BID 06/22/17 02/01/18 Erythromycin Base [Erythromycin 1 applic EACHEYE DAILY PRN 08/16/17 02/01/18 Ophthalmic Ointment] Triamcinolone 0.1% Cream [Kenalog 1 applic TOP BID PRN 08/16/17 02/01/18 0.1% Cream] - Allergies Allergies/Adverse Reactions: Allergies Allergy/AdvReac Type Severity Reaction Status Date / Time Labfuuf-Kvx-Ach Reductase AdvReac Severe Unknown Verified 01/11/17 11:20 Inhibitor Review of Systems - Constitutional Constitutional: reports: Fatigue, Weight stable. denies: Fever, Chills - Eyes Eyes: reports: Vision loss, Corrective lenses - Ears, Nose & Throat Ears, Nose & Throat: reports: Dry mouth - Cardiovascular Cardiovascular: reports: Decr. exercise tolerance - Gastrointestinal Gastrointestinal: reports: Constipation (controlled on current regimen), Good appetite ( cooks or more often does fast food; she is trying to make better food choices) - Genitourinary Genitourinary: reports: Urgency - Musculoskeletal Musculoskeletal: reports: Back pain, Muscle aches, Stiffness, Limited range of motion, Muscle weakness, Assistive devices (uses walker; has not been using shower because of pain) - Integumentary Integumentary: reports: Dryness, Hair changes (psoriasis per report) - Neurological Neurological: reports: General weakness - Psychiatric Psychiatric: denies: Depression, Anxiety - Hematologic/Lymphatic Hematologic/Lymphatic: denies: Recurrent infections - All Other Systems All Other Systems: reports: Reviewed and negative Physical Exam - Vital Signs Temperature: 97.0 C Pulse Rate: 72 Respiratory Rate: 18 O2 Saturation: 96 (ra @ rest) Blood Pressure: 142/62 - Physical Exam General Appearance: positive: No acute distress Eyes Bilateral: positive: Normal inspection ENT: positive: No signs of dehydration Neck: positive: No JVD, Trachea midline Cardiovascular: positive: Regular rate & rhythm Respiratory: positive: Breath sounds nml Abdomen: positive: Non-tender, Soft, Nml bowel sounds Skin: positive: Pallor, Dryness (scalp) Extremities: positive: No pedal edema Neurologic/Psychiatric: positive: Oriented x3, Mood/affect nml, Weakness Palliative Care - POLST Patient has POLST: Yes POLST Status: DNR, Comfort Measures Pain: Pain worsening, Location (lower lumbar back; exacerbated with standing or weight bearing) Tiredness/Fatigue: Severe (7-10) Drowsiness/Sedation: Moderate (4-6) Nausea: Mild (1-3) Depression: Mild (1-3) Anxiety: Mild (1-3) Dyspnea: Mild (1-3) Anorexia: None Sleep: Sleeps well Constipation: Yes, Opoid induced, Managed Feelings of wellbeing/Perceived Quality of Life: Good, Acceptable, Worsening Performance Status: Patient spending more time in bed, she reports she feels better lying down as far as her pain management. She has not been showering, but using wipes. He got it does come once a week to help her wash her hair. She ambulates only short distances with her walker to the bathroom and out to her recliner. - Palliative Care Discussion: Patient continues to receive her quality of life is good, she is hoping to improve as far as her functional status so we did discuss in the context of her worsening back pain this may be a new normal. She would like though to give physical therapy a try, she has done well with it in the past, and the goal would be to increase her strength, endurance, and see if it improves her pain. She does need assistance and more training in bed mobility and ongoing transfers. She is thankful for every day she is here, she is quite worried about her 's his health is deteriorating as well as her daughter who recently was hospitalized. She jensen by trying to be positive, she does have a strong gia.She is grateful at this point in time she can remain at home it is not in a skilled nursing, she is worried about what will happen when she requires more care given her is so frail Impression and Recommendations - Palliative Care Impression: This is an 87-year-old woman who has increased intensity of her pain secondary to her lumbar stenosis worsening. She remains resistant to further workup her specialist referral. She is feeling increasingly deconditioned, poor balance and would like a physical therapy referral to improve her quality of life and continued to maintain as much independence as possible. Palliative care continues to provide intermittent visits secondary is considerable effort to get to her PCP, as well as counseling for symptom management and anticipatory guidance Recommendations/Counseling Done: 1. Back pain secondary spinal stenosis. Patient is using her hydrocodone 5 mg/325 mg 3 times a day with good relief, does use a fourth tablet when it is exacerbated. Some days she only needs 1 or 2. Continues to impact her functionality as well as her quality of life. 2. Generalized weakness. Patient would like to reinitiate physical therapy with the goals to improve her balance, strength, and assist with improving bed mobility and transfers. Will go ahead and make referral to [facility]. Unfortunately secondary Medicare regulations I can do a [id number] but primary care provider Dr. Latif is going to need to send an order. Will reach out to both. 3. Hypertension. Blood pressure remains slightly elevated, but patient feels current regiment is tolerable and anxious about any changes. Patient does recognize her high risk for stroke, but has low tolerance for change. We will continue to monitor if becomes more problematic can readjust medications. 4. Advanced care planning. Patient continues to perceive she has good quality of life, she has multiple stressors regarding worries about her family, she tries to stay will positive as part of her coping. Palliative care to continue to provide support. 5. Psoriasis of the scalp. Prescription for Clobetasol shampoo, denied, will follow up and see what is on formulary. [id number] provided for physical therapy, to evaluate and treat with focus on balance training, strengthening, home exercise program, bed mobility and transfers as well as safety eval. Time Spent: 30 minutes with greater, than 50% of this done in counseling and coordination of care anticipatory guidance.
== END 2018-01-31 20:57 | disposition home or self-care (01) ==
LOC: PC 20:56
PROVIDERS: ATTEND Nurse Practitioner Adult Health
DX: Z51.5 Encounter for palliative care (principal); M48.061 Spinal stenosis, lumbar region without neurogenic claudication; R53.1 Weakness; I10 Essential (primary) hypertension; K59.03 Drug induced constipation; T40.2X5D Adverse effect of other opioids, subsequent encounter; I69.354 Hemiplegia and hemiparesis following cerebral infarction affecting left non-dominant side; Z79.82 Long term (current) use of aspirin; Z66 Do not resuscitate
CPT/HCPCS: 99348

== ENCOUNTER 2018-09-12 11:30 | Outpatient (CLI) | payer MEDICARE, OTHER ==
--- NOTE | 2018-09-12 17:20 | CONSULTATION NOTE ---
Palliative Care Follow Up - Referral Referring Provider: Dr. 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 Patient presents with increased pain in her lumbar region, had previously been exacerbated just with standing, now is exacerbated with sitting as well. She is spending most of her time laying prone in her bed, and has a recliner which lays out flat coming today. She describes the pain as severe, located in her lower lumbar area, has impacted her ability to ambulate, she reports her legs are less functional, and increasing difficulty ambulating. She is still able to get back and forth to the bathroom, but no longer in and out of the shower. She denies numbness or tingling, any changes in her bowel or bladder. She is not interested in further evaluation, injections, she reports her last visit regarding her back the only thing they were able to offer her with surgery, and this is not acceptable to her. She does report she is sleeping more, and presents with more depression. She reports her blood pressures have been in the 140/70-80 range. He does note increased blood pressure with anxiety. She does have multiple stressors going on currently. Is a mostly related to family issues. She is wondering about decreasing her hydrochlorothiazide, as she is up frequently to urinate, and this exacerbates her pain. Patient does not present with any lower extremity edema. She had quit for 3 days, then thought better of it. We did agreed to trial of half dose and monitoring of blood pressure. 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 She reports this has improved over time, but she is easily tearful with conversation today. Her is having increased memory problems, as well as her daughter is scheduled for another brain surgery. She tries to "stay positive", but with her increased dependency she is worried about her long-term ability to stay at home. Unfortunately the one caregiver they had, is no longer available has moved. They do have housekeeping 1 time a week. Social History - Living Situation Living arrangement: At home Living Situation: With spouse/s.o. Support System: Patient's spouse despite his elderly age, continues to work a couple times a week. He can provide her some assistance, but he himself is quite frail and has back pain. He has very [place] of her, and very much wants to be able to support her, but her ability to at least be ambulatory is important for this caregiving situation to work. She does continue to do her exercises though they are limited in her ability to tolerate sustained activity, she also has received an working on a peddler about 2 minutes a day Medications/Allergies - Medications Home Medications: Ambulatory Orders Medication Instructions Recorded Confirmed Hydrochlorothiazide 12.5 mg PO DAILY 05/08/14 09/12/18 HYDROcod/ACETAM 5/325 [Vicodin 1 - 2 ea PO Q4HR PRN MDD 8 tabs 07/18/15 09/12/18 5/325] Losartan Potassium 100 mg PO DAILY 08/08/15 09/12/18 Aspirin [Adult Low Dose Aspirin EC] 81 mg PO BID 01/11/17 09/12/18 Docusate Sodium 400 mg PO DAILY 01/11/17 09/12/18 Senna [Senokot] 34.4 gm PO DAILY 01/11/17 09/12/18 Metoprolol Tartrate 25 mg PO BID 04/15/17 09/12/18 Omeprazole 20 mg PO BID 06/22/17 09/12/18 Erythromycin Base [Erythromycin 1 applic EACHEYE DAILY PRN 08/16/17 09/12/18 Ophthalmic Ointment] Cyanocobalamin (Vitamin B-12) 1,000 mcg SL DAILY 09/13/18 09/13/18 [Vitamin B-12 (1000 mcg sublingual)] Ubidecarenone/Vit E/Vit E Mix 1 tab PO DAILY 09/13/18 09/13/18 [Co-Enzyme Q10 100 mg Softgel] - Allergies Allergies/Adverse Reactions: Allergies Allergy/AdvReac Type Severity Reaction Status Date / Time Vocwyso-Lht-Qli Reductase AdvReac Severe Unknown Verified 01/11/17 11:20 Inhibitor Review of Systems - Constitutional Constitutional: reports: Fatigue, Weight gain. denies: Fever, Chills - Eyes Eyes: reports: Vision loss, Corrective lenses - Ears, Nose & Throat Ears, Nose & Throat: reports: Dry mouth, Other (soft voice) - Cardiovascular Cardiovascular: reports: Exertional dyspnea. denies: Chest pain, Edema - Respiratory Respiratory: reports: SOB with exertion. denies: Cough, SOB at rest - Gastrointestinal Gastrointestinal: reports: Constipation (controlled with current regimen), Reflux/heartburn (uses omeprazole with good relief), Early satiety, Other ( does not cook; reliant on fast foods). denies: Rectal bleeding, Nausea - Genitourinary Genitourinary: reports: Frequency (wanting to stop HCTZ), Incontinence (occasionl) - Musculoskeletal Musculoskeletal: reports: Back pain, Muscle aches, Stiffness, Limited range of motion, Muscle weakness, Assistive devices (uses walker) - Integumentary Integumentary: reports: Dryness - Neurological Neurological: reports: General weakness. denies: Dizziness, Memory problems - Psychiatric Psychiatric: reports: Depression, Anxiety (related to husbands memory; daughters health) - Hematologic/Lymphatic Hematologic/Lymphatic: denies: Recurrent infections - All Other Systems All Other Systems: reports: Reviewed and negative Physical Exam - Vital Signs Temperature: 97.0 C Pulse Rate: 78 Respiratory Rate: 18 O2 Saturation: 96 (ra @ rest) Blood Pressure: 128/68 - Physical Exam General Appearance: positive: No acute distress, Alert Eyes Bilateral: positive: Normal inspection ENT: positive: No signs of dehydration Neck: positive: No JVD, Trachea midline Cardiovascular: positive: Regular rate & rhythm Respiratory: positive: No respiratory distress, Breath sounds nml, Diminished in bases Abdomen: positive: Soft. negative: Tenderness Skin: positive: Pallor, Dryness Extremities: positive: No pedal edema Neurologic/Psychiatric: positive: Oriented x3, Weakness, Depressed mood/affect Palliative Care - POLST Patient has POLST: Yes POLST Status: DNR, Comfort Measures Pain: Pain worsening, Location (Patient's pain is located in her lower lumbar area at place of stenosis. She does take hydromorphone/acetaminophen 5/325 mg 3 times daily on average, this can fluctuate. She perceives she still gets good relief, pain is exacerbated with standing and movement, at this point does not need long-acting medication as it is not persistent continuously) Tiredness/Fatigue: Severe (7-10) Drowsiness/Sedation: Moderate (4-6), Comment (patient is sleeping more) Nausea: None Depression: Moderate (4-6) Anxiety: Moderate (4-6) Dyspnea: None Anorexia: Mild (1-3) Sleep: Sleeps well Constipation: Yes, Opoid induced, Managed (uses Senna 4 tabs/LEIDA 4 tabs; external hemorrhidal cream and supp with no bleeding) Feelings of wellbeing/Perceived Quality of Life: Fair, Acceptable, Worsening Performance Status: Patient is still able to ambulate short distances to the bathroom, having increased difficulty tolerating sitting, is unable to get from sitting to stand without lift chair or assistance. In the bathroom she uses a bath guardrails. Patient is able to feed herself, though is dependent on for meal prep. Daughter comes helps her with her hair weekly, does mostly sponge bathing. PPS of 50% - Palliative Care Discussion: Patient very much loves her , though is concerned about his cognitive decline, and ability to manage her care needs long-term. She is worried about costs of care, at this point in time they are limiting money spent on careg iving. She does have pretty see if herself as declining, and that she is "getting older and the end of the road". She still finds quality of life and spending time with her family, but has many stressors. Her coping is always been to focus on the positive, she is using some meditation, does read and has a strong gia. She is aware of her high risk for recurrent stroke, if she were to be any more dependent, this would not be perceived his quality of life and would not want her life extended nor her suffering. Impression and Recommendations - Palliative Care Impression: This is an 87-year-old woman who has ongoing functional decline and increasing severe pain related to her lumbar spinal stenosis. She does have history of stroke with residual deficits, that she does feel are progressing as well in the context of functional decline. Palliative care following patient for chronic pain management, and counseling for anxiety and depression. Recommendations/Counseling Done: 1. Chronic lower back pain secondary to severe spinal stenosis. Patient continues to manage on her hydrocodone 5 mg / 325 mg acetaminophen, up to 3 times a day. She does have fluctuating pain status so does perceive the severity and impact of her pain has progressed over the last several months. Will continue on short acting pain meds, counseling with patient regarding benefits and burdens of any changes, agreed current regimen appropriate and satisfactory. 2. Constipation. Patient controlling her current bowel program with 4 mg of DOS and 4 senna, itching her hemorrhoids without any rectal bleeding or increase in discomfort. 3. Fatigue. This is multifactorial in origin, is impacted by her increasing pain and ability to be upright. Patient does pace activity, takes frequent naps, and continues to attempt to do her home exercise program. 4. Hypertension. Patient's blood pressure have been in a regular range, is tolerating her current regimen. Given patient's difficulty with ambulation, and perception of increased frequency with hydrochlorothiazide, will decrease to 12.5 mg. She is to continue to monitor 5. Advanced care planning patient continues to try make the best of her current situation, is quite tearful today, does have multiple stressors related to her family and finances. She is also concerned he is quite frail and would not be able to manage her if she were much more dependent. Met with palliative care nursing home social worker in the past, declined today, but aware available for future planning if needed. FACE to FACE: Patient does need a seat lift mechanism, she does have severe spinal stenosis with sciatica and residual weakness of her left lower extremity from her previous CVAs. Patient is incapable of standing up from a regular arm chair, does need the lift mechanism to get from sitting to standing, secondary to weakness, and inability to this independently. She is once upright, able to ambulate short distances with the walker. He is maximally managed on her pain management, as most of her pain is with weightbearing. And she has had several rounds of physical therapy to maximize her functional status. Time Spent: 45 minutes with getting 50% of this done in counseling regarding management of depression, addressing anxiety, pain management and safety as well as anticipatory guidance
== END 2018-09-12 11:31 | disposition home or self-care (01) ==
LOC: PC 11:30
PROVIDERS: ATTEND Nurse Practitioner Adult Health
DX: Z51.5 Encounter for palliative care (principal); I69.954 Hemiplegia and hemiparesis following unspecified cerebrovascular disease affecting left non-dominant side; E78.49 Other hyperlipidemia; G89.29 Other chronic pain; M48.061 Spinal stenosis, lumbar region without neurogenic claudication; R53.83 Other fatigue; I10 Essential (primary) hypertension; F32.9 Major depressive disorder, single episode, unspecified; I69.30 Unspecified sequelae of cerebral infarction; F48.2 Pseudobulbar affect; H54.7 Unspecified visual loss; R35.0 Frequency of micturition; T40.605D Adverse effect of unspecified narcotics, subsequent encounter; K59.03 Drug induced constipation; Z66 Do not resuscitate; Z79.891 Long term (current) use of opiate analgesic; Z79.82 Long term (current) use of aspirin; Z79.2 Long term (current) use of antibiotics
CPT/HCPCS: 99349

== ENCOUNTER 2018-10-25 08:00 | Outpatient (CLI) | payer MEDICARE, OTHER ==
[2018-10-25 17:45] LABS: ALBUMIN 4.1 g/dL (3.2-5.5); ALBUMIN/GLOBULIN RATIO 1.2 (1.0-2.2); BILIRUBIN,TOTAL 0.6 mg/dL (0.2-1.0); CALCIUM 9.8 mg/dL (8.5-10.3); TOTAL PROTEIN 7.5 g/dL (6.7-8.2)
[2018-10-25 17:46] LABS: BASOPHILS % (AUTO) 0.3 %; EOSINOPHILS # (AUTO) 0.1 10^3/uL (0.0-0.7); EOSINOPHILS % (AUTO) 1.3 %; HGB - HEMOGLOBIN 13.4 g/dL (12.0-16.0); LYMPHOCYTES # (AUTO) 2.8 10^3/uL (1.5-3.5); LYMPHOCYTES % (AUTO) 37.9 %; MEAN CORPUSCULAR HEMOGLOBIN 31.5 pg (27.0-31.0); MEAN CORPUSCULAR HGB CONC 34.3 g/dL (32.0-36.0); MEAN CORPUSCULAR VOLUME 91.9 fL (81.0-99.0); MEAN PLATELET VOLUME 9.9 fL (7.9-10.8); MONOCYTES # (AUTO) 0.6 10^3/uL (0.0-1.0); MONOCYTES % (AUTO) 7.5 %; NEUTROPHILS # (AUTO) 3.9 10^3/uL (1.5-6.6); PLT - PLATELET COUNT 264 10^3/uL (130-450); RED BLOOD COUNT 4.24 10^6/uL (4.20-5.40); RED CELL DISTRIBUTION WIDTH 13.1 % (12.0-15.0); WHITE BLOOD COUNT 7.4 x10^3/uL (4.8-10.8)
== END 2018-10-25 23:59 | disposition home or self-care (01) ==
LOC: LAB.R 08:00
PROVIDERS: ATTEND Nurse Practitioner Adult Health
DX: R53.83 Other fatigue (principal); Z79.899 Other long term (current) drug therapy
CPT/HCPCS: 80053; 85025

== ENCOUNTER 2018-10-25 14:30 | Outpatient (CLI) | payer MEDICARE, OTHER ==
--- NOTE | 2018-10-25 18:50 | CONSULTATION NOTE ---
Palliative Care Follow Up - Referral Referring Provider: Dr. 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 Patient contacted palliative care, she feels she is having increased sequela from her stroke, with increased left weakness, increasing fatigue. As well as progressive pain in her lower lumbar area resulting in functional decline, and more difficulty with ADLs. She denies increased numbness, or any changes in her bowel or bladder. She has increased her baseline use of Vicodin from 3 to day to 4 a day. Her pain is centralized to the lower lumbar area, increased pain with standing, less able to bear weight. She is shifting her weight into her arms and shoulder area, also for bathroom transfers pulling more on grab bars, resulting in upper extremity and bilateral arm pain. She takes frequent rests, she has a new recliner that lays out straight, it is impacting her functional ability to be able to dress, reports takes a long period of time to get up and get going in the morning. Her can provide some support, but patient does not have a primary caregiver. Patient's worry about increased stroke symptoms, she does have some increased lower extremity weakness, left greater than right. This is mostly centered on her increased arm pain, we discussed most likely culprit of increased weightbearing from her inability to tolerate weight on her lower extremity. She has had no changes in her cognitive status, no increase in trouble with her swallowing, though she does have to be careful, and no visual field deficits. Patient's most severe issues today, center around her worry about her and his ongoing cognitive decline. She is dependent on him as primary caregiver, is unable to assist him as far as follow-up. He is also had significant weight loss, and is to see his surgeon next week. She has been talking to her daughter some, but feels like she walks a fine line. Social History - Living Situation Living arrangement: At home Living Situation: With spouse/s.o. Support System: Patient lives with her , who is having increased health and memory problems, despite his advanced age continues to work a couple times a week. He is unable to provide her much help, because of his frailty. If she becomes more debilitated, unclear if they are can be able to manage her care needs at home. They have 1 son who is , one daughter who has severe health problems recently recovering from a stroke, her other daughter comes weekly to help prov hue support. At this point time she does not have a paid caregiver, but does have housekeeping. Medications/Allergies - Medications Home Medications: Ambulatory Orders Medication Instructions Recorded Confirmed Hydrochlorothiazide 12.5 mg PO DAILY 05/08/14 10/26/18 HYDROcod/ACETAM 5/325 [Vicodin 1 - 2 ea PO Q4HR PRN MDD 8 tabs 07/18/15 10/26/18 5/325] Losartan Potassium 100 mg PO DAILY 08/08/15 10/26/18 Aspirin [Adult Low Dose Aspirin EC] 81 mg PO BID 01/11/17 10/26/18 Docusate Sodium 400 mg PO DAILY 01/11/17 10/26/18 Senna [Senokot] 17.2 gm PO TID 01/11/17 10/26/18 Metoprolol Tartrate 25 mg PO BID 04/15/17 10/26/18 Omeprazole 20 mg PO BID 06/22/17 10/26/18 Erythromycin Base [Erythromycin 1 applic EACHEYE DAILY PRN 08/16/17 10/26/18 Ophthalmic Ointment] Cyanocobalamin (Vitamin B-12) 1,000 mcg SL DAILY 09/13/18 10/26/18 [Vitamin B-12 (1000 mcg sublingual)] Ubidecarenone/Vit E/Vit E Mix 1 tab PO DAILY 09/13/18 10/26/18 [Co-Enzyme Q10 100 mg Softgel] - Allergies Allergies/Adverse Reactions: Allergies Allergy/AdvReac Type Severity Reaction Status Date / Time Egpjkga-Wyf-Zvo Reductase AdvReac Severe Unknown Verified 01/11/17 11:20 Inhibitor Review of Systems - Constitutional Constitutional: reports: Fatigue (patient perceives is worsening), Weight gain (attributes to fast food meals/processed food; she cannot stand to do meal prep and does not cook). denies: Fever, Chills - Eyes Eyes: reports: Vision loss, Corrective lenses - Ears, Nose & Throat Ears, Nose & Throat: reports: Hearing loss - Cardiovascular Cardiovascular: reports: Decr. exercise tolerance - Respiratory Respiratory: denies: SOB at rest - Gastrointestinal Gastrointestinal: reports: Constipation (worsening with increased opioid), Good appetite. denies: Nausea, Reflux/heartburn (currently controlled unless eats triggering food) - Genitourinary Genitourinary: denies: Incontinence - Musculoskeletal Musculoskeletal: reports: Back pain, Muscle aches, Stiffness, Limited range of motion, Muscle weakness, Assistive devices (uses rolling walker) - Integumentary Integumentary: reports: Dryness - Neurological Neurological: reports: General weakness - Psychiatric Psychiatric: reports: Depression, Anxiety - All Other Systems All Other Systems: reports: Reviewed and negative Physical Exam - Vital Signs Temperature: 97.7 C Pulse Rate: 83 Respiratory Rate: 18 O2 Saturation: 96 (ra @ rest) Blood Pressure: 132/82 - Physical Exam General Appearance: positive: Mild distress, Anxious Eyes Bilateral: positive: Conjunctivae nml, Other (eyes easily water;) ENT: positive: No signs of dehydration Neck: positive: No JVD, Trachea midline Cardiovascular: positive: Regular rate & rhythm Respiratory: positive: No respiratory distress, Breath sounds nml Abdomen: positive: Non-tender, Soft, Nml bowel sounds Skin: positive: Pallor, Dryness Extremities: positive: No pedal edema Neurologic/Psychiatric: positive: Oriented x3, Weakness, Depressed mood/affect Palliative Care - POLST Patient has POLST: Yes POLST Status: DNR, Comfort Measures Pain: Pain worsening, Location (see HPI) Tiredness/Fatigue: Severe (7-10) Drowsiness/Sedation: Mild (1-3) Nausea: None Depression: Moderate (4-6) Anxiety: Severe (7-10) (related to issues with her ) Dyspnea: Mild (1-3) Anorexia: None Sleep: Sleeps well Constipation: Yes, Opoid induced, Unmanaged Feelings of wellbeing/Perceived Quality of Life: Fair, Worsening Performance Status: Patient describes decline in functional status, less able to tolerate activity. No longer showering to just spit bathing. Her daughter assist her with hair. Patient spending more time in a recliner, this is both related to pain and activity intolerance. She continues to do her home exercise program, though limited a supplied by previous home health PT. She is still ambulatory from bedroom to the living room and to bathroom. Though it is with great effort she has to dress, or perform any activities in the home. - Palliative Care Discussion: Patient does perceive herself as declining, though she has had functional decline she is still remains quite cognitively intact. She is wondering about increased help, asking about hospice. We discussed in the context of her current situation, she does not present with any symptoms or acute changes that would put her into the "terminal diagnosis "category. She is mostly concerned regarding her , this causes her quite a bit of stress. Much time was spent in reflecting and educating regarding progression of dementia.This does raise acute concerns regarding long-term management in her home setting, she is no longer going to be able to participate in her own care if she has much more loss of functional status. is quite frail and will not be able to manage if she is more dependent Results - Lab Results Lab results reviewed: Yes Lab and Imaging Results: labs drawn and reviewed; kidney function remains compromised but not worsening. Impression and Recommendations - Palliative Care Impression: This is an 88-year-old woman who has ongoing functional decline, and progressive pain related to her lumbar spinal stenosis. She presents with ongoing social stressors, adding to her depression and anxiety, as well as concern for long- term planning. Palliative care continue to follow patient for chronic pain management, and counseling and support for anxiety and depression. Recommendations/Counseling Done: 1. Chronic pain secondary to severe spinal lumbar stenosis. Patient has needed increased hydrocodone 5 mg / 325 mg acetaminophen, regularly taking 4 times a day now. She does describe increasing pain, patient unable or willing to have further follow-up or work-up. She has seen spinal specialist in the past, does not feel like she could tolerate or benefit from further injections. Patient does find current regimen controls adequately per her perception. Given patient's pain is intermittent and fluctuating, would not be appropriate for time-released medication at this point in time. It is mostly when she is up and walking, no pain when she is in bed. She is sleeping without problems. Prescription provided with counseling for safety issues. 2. Constipation. Patient with increased constipation with increased opioid use. Counseling provided to titrate Senokot up to 2 tabs 3 times a day, continue her DOS 400 mg daily. Patient denies any rectal pain or bleeding, is managing her hemorrhoids at this point. 3. Fatigue. This is multifactorial. Labs drawn without any acute findings. Patient participating in her home exercise program as much as her pain and tolerance will allow, patient would benefit from increased caregiving, at this time remains quite resistant. 4. Hypertension. Patient is tolerated decrease in hydrochlorothiazide, has not had any increased lower extremity swelling, and blood pressures have remained in her regular range. She is continue to monitor. This so has improved her quality of life, she is not needing so frequently to go to the bathroom. 5. Depression. 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 Did spend quite a bit of time reviewing her current stressors and concerns regarding her 's ongoing cognitive decline and health issues. 6. Advanced care planning. Patient does have POLST in place, is very fearful of needing placement in the future, is hoping to stay home, does not want any acute or aggressive interventions. Will follow along regarding 's health status, if declines will need further caregiving plan. Time Spent: 45 minutes with greater than 50% of this done in counseling regarding depression, pain management, and anticipatory guidance.Labs drawn and delivered to [facility].
== END 2018-10-25 14:31 | disposition home or self-care (01) ==
LOC: PC 14:30
PROVIDERS: ATTEND Nurse Practitioner Adult Health
DX: Z51.5 Encounter for palliative care (principal); I69.954 Hemiplegia and hemiparesis following unspecified cerebrovascular disease affecting left non-dominant side; R53.83 Other fatigue; F32.9 Major depressive disorder, single episode, unspecified; F41.9 Anxiety disorder, unspecified; E78.5 Hyperlipidemia, unspecified; G89.29 Other chronic pain; M48.061 Spinal stenosis, lumbar region without neurogenic claudication; I10 Essential (primary) hypertension; H54.7 Unspecified visual loss; H91.90 Unspecified hearing loss, unspecified ear; K59.03 Drug induced constipation; T40.2X5A Adverse effect of other opioids, initial encounter; Z66 Do not resuscitate; Z79.891 Long term (current) use of opiate analgesic; Z79.82 Long term (current) use of aspirin
CPT/HCPCS: 99349

== ENCOUNTER 2019-02-12 13:00 | Outpatient (CLI) | payer MEDICARE, OTHER ==
--- NOTE | 2019-02-12 18:43 | CONSULTATION NOTE ---
Palliative Care Follow Up - Referral Referring Provider: Dr. 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 She had called a week ago with increased blood pressures, up to 164/114, we had decreased her hydrochlorothiazide as she was having increased trouble with urinary incontinence and her blood pressure has had been in a lower range of 120-130/70-80. She had maintained these actually for several months, she is also though had a increase in her pain. She has been on the increased dose of 25 mg of hydrochlorothiazide with improvement of her blood pressures, running between 140 144/70-80. She has had no headaches. And her perception of her increased left-sided difficulties with her post stroke syndrome, has been a slow steady decline nothing acute. What has been increasing is her increased pain and difficulty with her lumbar stenosis. She is having more difficulty with ambulating, increased pain, needing her hydrocodone up to 3-4 times a day, she had been having pain only with weightbearing, now she is having pain with rest. She has been told in the past she is not a surgical candidate, she does have some increased numbness in her lower extremities, she has not had any increase in her urinary leakage but this is been a new symptom over the last few months. Patient has quite a difficult social situation, her 's memory problems have been worsening, she has been worried about the severity of his decline and dementia. He refuses to go to the doctor, though she is aware he might benefit from medication. He is also had severe weight loss, and there was no further work-up or outcomes from his appointment with the surgeon, but she is concerned that he most likely did not share accurately his symptoms or remembered what he was told. Thus given he continues to still work several days a week, she is alone at home, though she does have [employer]. Is quite devoted to her, but if she becomes more functionally debilitated, will be a question about meeting her care needs in the long-term. He would not be able to lift or care for her. She is able to ambulate short distances with her walker, but is finding the need to lay flat for pain relief more frequent, and also experiencing increased fatigue Social History - Living Situation Living arrangement: At home Living Situation: With spouse/s.o. Support System: Do have a finishing lab technician coming once a week now, she does feel like this person would be able to step up and provide more increased her personal care if needed. She has 2 daughters, though one has significant health problems. Her continues to work several days a week, but is quite close and she can call if has any problems. Her biggest problem is he does not cook, so finding foods that he will eat, or that are healthy for her without high salt content has been challenging. Medications/Allergies - Medications Home Medications: Ambulatory Orders Medication Instructions Recorded Confirmed Hydrochlorothiazide 25 mg PO DAILY 05/08/14 02/13/19 HYDROcod/ACETAM 5/325 [Vicodin 1 - 2 ea PO Q4HR PRN MDD 8 tabs 07/18/15 02/13/19 5/325] Losartan Potassium 100 mg PO DAILY 08/08/15 02/13/19 Aspirin [Adult Low Dose Aspirin EC] 81 mg PO BID 01/11/17 02/13/19 Docusate Sodium 400 mg PO DAILY 01/11/17 02/13/19 Senna [Senokot] 17.2 gm PO TID 01/11/17 02/13/19 Metoprolol Tartrate 25 mg PO BID 04/15/17 02/13/19 Omeprazole 20 mg PO BID 06/22/17 02/13/19 Erythromycin Base [Erythromycin 1 applic EACHEYE DAILY PRN 08/16/17 02/13/19 Ophthalmic Ointment] Cyanocobalamin (Vitamin B-12) 1,000 mcg SL DAILY 09/13/18 02/13/19 [Vitamin B-12 (1000 mcg sublingual)] Ubidecarenone/Vit E/Vit E Mix 1 tab PO DAILY 09/13/18 02/13/19 [Co-Enzyme Q10 100 mg Softgel] - Allergies Allergies/Adverse Reactions: Allergies Allergy/AdvReac Type Severity Reaction Status Date / Time [id number] Reductase AdvReac Severe Unknown Verified 01/11/17 11:20 Inhibitor Review of Systems - Constitutional Constitutional: reports: Fatigue, Weight stable. denies: Fever, Chills - Eyes Eyes: reports: Vision loss, Other (reports more difficulty with bleary vision) - Cardiovascular Cardiovascular: reports: Decr. exercise tolerance. denies: Chest pain - Respiratory Respiratory: denies: SOB at rest - Gastrointestinal Gastrointestinal: reports: Constipation, Reflux/heartburn, Good appetite, Other (hemmorhoids) - Genitourinary Genitourinary: reports: Incontinence (some leakage; new; reports symptoms of urinary retention at times) - Musculoskeletal Musculoskeletal: reports: Back pain, Stiffness, Limited range of motion, Muscle weakness, Assistive devices (uses FWW for short distances in home;), Other (still doing HEP from PT) - Integumentary Integumentary: reports: Dryness - Neurological Neurological: reports: General weakness, Numbness (bilaterally in LE; gradual worsening) - Psychiatric Psychiatric: reports: Anxiety - Hematologic/Lymphatic Hematologic/Lymphatic: denies: Anemia, Recurrent infections - All Other Systems All Other Systems: reports: Reviewed and negative Physical Exam - Vital Signs Temperature: 97.2 C Pulse Rate: 70 Respiratory Rate: 18 O2 Saturation: 97 (ra @ rest) Blood Pressure: 148/84 - Physical Exam General Appearance: positive: No acute distress, Alert Eyes Bilateral: positive: Normal inspection, Conjunctivae nml ENT: positive: No signs of dehydration Neck: positive: Trachea midline Cardiovascular: positive: Regular rate & rhythm Respiratory: positive: No respiratory distress, Breath sounds nml Abdomen: positive: Non-tender, Soft, Nml bowel sounds Skin: positive: Pallor, Dryness Extremities: positive: No pedal edema Neurologic/Psychiatric: positive: Oriented x3, Mood/affect nml, Weakness Palliative Care - POLST Patient has POLST: Yes POLST Status: DNR, Comfort Measures Pain: Pain worsening, Location (see hpi lower lumbar area) Tiredness/Fatigue: Moderate (4-6) Drowsiness/Sedation: Mild (1-3) Nausea: None Depression: Mild (1-3) Anxiety: Mild (1-3) Dyspnea: None Anorexia: None Sleep: Sleeps well Constipation: Yes, Opoid induced, Intermittent constipation Feelings of wellbeing/Perceived Quality of Life: Fair, Acceptable, Worsening Performance Status: Patient reports has been a long slow functional decline, she is still ambulating but very short distances. She can toilet herself. She is no longer able to bathe, is using wipes, her daughter helps her with her hair. Discussed my concern for long-term planning when patient no longer able to get her care needs met at home, particularly with her 's declining health, she finds it very difficult topic to approach, but acknowledges she is feeling quite vulnerable. - Palliative Care Discussion: Patient continues to approach living with her serious illness and disabilities with a positive attitude and trying to make the best of it. She is concerned she does feel herself is failing, and is very worried about how her 's health is doing particularly around his symptoms of dementia. They are at least now talking about his forgetfulness, his mother had Alzheimer's, so does have some awareness regarding this. Initiated conversation regarding considering assisted living for better support, they very much want to stay in their own home, and patient's continues to work to support their daughter's who are needing financial assistance. Patient does have a POLST with DNA R/comfort measures, even though her quality of life is declining she still sees it as acceptable. Impression and Recommendations - Palliative Care Impression: This is an 88-year-old woman with history of multiple strokes, with left-sided weakness. Her most pressing problem actually is her severe lower lumbar back pain, is limiting her functional status as well as impacting her quality of life. Her exacerbated hypertension, is under control currently, no other medication changes made today. Patient is interested and curious to follow-up with neurology consult, is not quite clear what she wants as an outcome but does feel like it would be helpful. Palliative care continue provide support for patient regarding acute on chronic back pain, opioid support, as well as anticipatory guidance. Recommendations/Counseling Done: 1. Acute on chronic back pain. Patient does describe increasing acute pain, with worsening with weightbearing, now starting to affect her with sitting and rest. She has been using hydrocodone 5/acetaminophen 325 mg up to 3 times a day, finding it only lasts up to 3 hours. Patient's pain is escalating and she does describe it as severe. She does get relief, and is using her medications appropriately. Encourage patient to schedule 4 times daily, to see if improvement in pain results with better functional status. 2. Constipation. Patient has long-standing constipation related to her opioid use, she has been instructed to use her senna 2 tabs 3 times daily, her hemorrhoids currently are under control. She will continue her current bowel program. 3. Hypertension. With resumption of her hydrochlorothiazide to 25 mg daily, along with her losartan at 100 mg and metoprolol 25 mg twice daily her hypertension is back into her normal range, which is 142/80. She does feel worse if it is lower. If patient's blood pressure creeps back up, would look at increasing her metoprolol if needed. Patient satisfied with current plan, and will notify me if her blood pressure increases again. 4. Status post CVA. Patient reports she is noted increased left-sided symptoms from her stroke, worried about her numbness in her lower extremities, the most likely etiology is her lumbar stenosis. She is quite resistant to further referrals for her work-up or interventions for her stenosis, has had epidurals in the past without results. She would very much like to follow back up with Dr. Larisa Escobar, will follow up on referral. 5. Advanced care planning. I do remain quite concerned regarding patient's lack of long-term plan, patient's does appear quite frail and declining, particularly cognitively. This is of great concern to patient, particularly as he will not pursue any further medical appointments. Have offered and medical social palliative care workers available for long-term planning, will continue to monitor, patient is aware Time Spent: 60 minutes is greater than 50% of this done in counseling regarding normalizing her grief and concern for her , reviewing opioid use and safety for her chronic pain management, instruction regarding her hypertension, and anticipatory guidance. Patient requesting referral to neurologist, will facilitate to primary care or provide to palliative care
== END 2019-02-12 13:01 | disposition home or self-care (01) ==
LOC: PC 13:00
PROVIDERS: ATTEND Nurse Practitioner Adult Health
DX: Z51.5 Encounter for palliative care (principal); I69.354 Hemiplegia and hemiparesis following cerebral infarction affecting left non-dominant side; E78.5 Hyperlipidemia, unspecified; G89.29 Other chronic pain; M48.061 Spinal stenosis, lumbar region without neurogenic claudication; I10 Essential (primary) hypertension; H54.7 Unspecified visual loss; Z66 Do not resuscitate; Z79.891 Long term (current) use of opiate analgesic; Z79.82 Long term (current) use of aspirin
CPT/HCPCS: 99350

== ENCOUNTER 2019-06-21 14:00 | Outpatient (CLI) | payer MEDICARE, OTHER ==
--- NOTE | 2019-06-21 16:59 | CONSULTATION NOTE ---
Palliative Care Follow Up - Referral Referring Provider: Dr. Pradip Mccarthy Time of Visit: [id number] Referral setting: Home Referral Reason: Acute on Chronic Back Pain/LE weakness/HTN/HX Stroke - Information Sources Records reviewed: Previous records reviewed History/Review of Systems obtained from: Patient Exam limitations: No limitations - History of Present Illness Update Brief HPI Update: This is a hanna 88-year-old woman with a significant history of at least 2 known strokes, with ongoing residual left-sided weakness, hereditary hyperlipidemia with intolerance to statins, and severe progressive lumbar spinal stenosis with increased lower extremity numbness and weakness. She is having increased functional decline related to this, having more numbness difficulty with balance, more left-sided symptoms as far as being able to weight-bear or control her left lower extremity. She does have intermittent stress incontinence, her bowels are moving, she said she was unable to get up yesterday because of the increasing and severe pain. Patient is wanted to take a conservative approach, she continues to decline further work-up, though I am concerned about her being bedbound fairly quickly. She does have an appointment with the neurologist on 07/19, but now is considering cancelling as she does not want testing nor would accept further intervention. She is using up to 3-4 Vicodin a day, she uses this timed around her mobility. She is only able to stand for short periods of time, and ambulates out to her recliner most days though unable to yesterday. Her 's health is declining as well, he is unable to lift her legs into the bed, so she is swinging them up and I suspect causing increased pain/trauma to her lower back. Her other biggest concern, is her , he finally did get a work-up, with most likely diagnosis of Alzheimer's dementia they are waiting on the final MRI of his brain. She reports he is much more confused, she is needing to frequently cue him, he is quite forgetful though he does continue to work at age 86. He has lost a significant amount of weight, he is her main caregiver, when asked what they would do if he continues to fail. She reports she is unclear if she would need placement, but in the meantime would hire help to support meeting her care needs particular if she became bedbound. Social History - Living Situation Living arrangement: At home Living Situation: With spouse/s.o. Support System: Patient lives at home, she spends most of her time in bed with a recliner. She does have a lifeline button. She does have a top spotter, she is less able to do her ADLs, does have her daughter come wash her hair weekly. She uses mostly clots, is no longer able to tolerate being in the shower. They do have children, but they both have health issues and families of their home. She does not feel at this point in time would make sense as far as moving, she can't possibly think of moving at this time, it would be too much stress on both of them. Medications/Allergies - Medications Home Medications: Ambulatory Orders Medication Instructions Recorded Confirmed Hydrochlorothiazide 25 mg PO DAILY 05/08/14 06/21/19 HYDROcod/ACETAM 5/325 [Vicodin 1 - 2 ea PO Q4HR PRN MDD 8 tabs 07/18/15 06/21/19 5/325] Losartan Potassium 100 mg PO DAILY 08/08/15 06/21/19 Aspirin [Adult Low Dose Aspirin EC] 81 mg PO BID 01/11/17 06/21/19 Docusate Sodium 400 mg PO DAILY 01/11/17 06/21/19 Senna [Senokot] 17.2 gm PO TID 01/11/17 06/21/19 Metoprolol Tartrate 25 mg PO BID 04/15/17 06/21/19 Omeprazole 20 mg PO BID 06/22/17 06/21/19 Erythromycin Base [Erythromycin 1 applic EACHEYE DAILY PRN 08/16/17 06/21/19 Ophthalmic Ointment] Cyanocobalamin (Vitamin B-12) 1,000 mcg SL DAILY 09/13/18 06/21/19 [Vitamin B-12 (1000 mcg sublingual)] Gabapentin 100 mg PO QPM MDD titrating 06/21/19 06/21/19 - Allergies Allergies/Adverse Reactions: Allergies Allergy/AdvReac Type Severity Reaction Status Date / Time Ddzybhu-[id number]-Ksc Reductase AdvReac Severe Unknown Verified 01/11/17 11:20 Inhibitor Review of Systems - Constitutional Constitutional: reports: Fatigue (feels worsening), Weakness, Weight stable. denies: Fever, Chills - Eyes Eyes: reports: Vision loss - Ears, Nose & Throat Ears, Nose & Throat: reports: Hearing loss (mild) - Cardiovascular Cardiovascular: reports: Decr. exercise tolerance. denies: Chest pain, Edema - Respiratory Respiratory: denies: SOB at rest - Gastrointestinal Gastrointestinal: reports: Constipation (intermittent), Good appetite. denies: Nausea - Genitourinary Genitourinary: reports: Incontinence (mild stress) - Musculoskeletal Musculoskeletal: reports: Back pain (worsening), Muscle aches, Stiffness, Limited range of motion, Muscle weakness, Assistive devices (walker for short distances), Transfer issues ( no longer can lift legs) - Integumentary Integumentary: reports: Dryness - Neurological Neurological: reports: General weakness, Other (feels speech is more difficult attributes to "stroke recovery"). denies: Memory problems - Psychiatric Psychiatric: reports: Depression, Anxiety - Hematologic/Lymphatic Hematologic/Lymphatic: denies: Recurrent infections - All Other Systems All Other Systems: reports: Reviewed and negative Physical Exam - Vital Signs Temperature: 97.1 C Pulse Rate: 77 Respiratory Rate: 18 O2 Saturation: 98 (ra @ rest) Blood Pressure: 148/78 - Physical Exam General Appearance: positive: Alert, Mild distress, Anxious (regarding worsening dementia for ; her declining functional status) Eyes Bilateral: positive: Normal inspection ENT: positive: No signs of dehydration Neck: positive: No JVD, Trachea midline Cardiovascular: positive: Regular rate & rhythm Respiratory: positive: No respiratory distress, Breath sounds nml, Diminished in bases. negative: Wheezes, Rales, Rhonchi Abdomen: positive: Non-tender, Soft, Nml bowel sounds Skin: positive: Pallor, Dryness Extremities: positive: No pedal edema Neurologic/Psychiatric: positive: Oriented x3, Mood/affect nml, Weakness Palliative Care - POLST Patient has POLST: Yes POLST Status: DNR, Comfort Measures Pain: Pain worsening Tiredness/Fatigue: Severe (7-10) Drowsiness/Sedation: Mild (1-3) Nausea: None Anorexia: None Dyspnea: None Depression: Moderate (4-6) Anxiety: Moderate (4-6) Feelings of wellbeing/Perceived Quality of Life: Fair, Acceptable, Worsening Sleep: Sleeps well Constipation: Yes, Opoid induced, Intermittent constipation Performance Status: Patient's functional status is declining, less able to ambulate and now cannot stand for any periods of time without legs feeling like they are going to give out. She does have assistance with washing her hair, otherwise she is doing spit baths. She is unable to do meal prep, she can feed herself, though she is having more trouble with speech denies any problem with swallow. - Palliative Care Discussion: Patient's greatest worry at this point in time is her 's decline, with both dementia and weight loss. He is her primary caregiver, so this puts both of them at risk as far as long-term planning and appropriate support in the home. He no longer can help her with her legs, is quite weak and frail. Patient reports this is the first time she is felt cold, she is glad her 's not in denial anymore, and they are working together to, with the best plan. If she were to be bedbound, reports he would quit work, there are a lot of financial stressors as they are trying to help their children who have complicated lives as well. Impression and Recommendations - Palliative Care Impression: This is an 88-year-old woman with a history of multiple strokes, with residual left-sided weakness, and most pressing problem is her progressive and severe lower lumbar back pain with increasing neuropathic symptoms as well as worsening functional status. Palliative care to continue provide support regarding acute on chronic back pain, opioid support, as well as anticipatory guidance. Recommendations/Counseling Done: 1. Acute on chronic back pain. This is multifactorial in origin, most likely the severe regarding her lumbar stenosis, and continued degenerative disease process. She is having increased symptomology, she refuses further work-up or imaging. She does have an appointment with neurology 07/19, is thinking about canceling as she would not accept surgery and or further imaging studies. She is using hydrocodone 5 mg acetaminophen 325 up to 3-4 times a day. Patient is quite hesitant to do anything different, will though try gabapentin 100 mg at be dtime for 1 week, increase to 200 mg and reevaluate. 2. Constipation. Patient has longstanding constipation related to her opioid use, she does titrate accordingly, has had intermittent problems but feels currently controlled. 3. Hypertension. Patient's hypertension currently controlled on her hydrochlorothiazide 25 mg daily, losartan 100 mg at at bedtime, and metoprolol 25 mg twice daily. Patient's blood pressure tends to run a little on the high side, 148/78 today, though she is quite upset about talking with her about her . 4. Status post CVA. Patient reports increased left-sided symptoms from her stroke, wearing more so about her increased speech difficulties. She denies any acute signs or symptoms are recurrent symptoms of TIA. 5. Advanced care planning. Patient still does not have a long-term plan, she would at this point in time have her quit though he is quite frail and would not be able to physically manage her care if she became bedbound. Counseling provided regarding creative ways for few hours in the morning 2 hours in the evening to get the needs met. Also recommended hospital bed, at this point time she is declined. Offered FRONT END LOADER OPERATOR for long-term planning, patient currently declines. Time Spent: 45 minutes with greater than 50% of this done in counseling regarding grief and loss secondary to her 's decline, pain and symptom management, anticipatory guidance, and advanced care planning.
== END 2019-06-21 14:01 | disposition home or self-care (01) ==
LOC: PC 14:00
PROVIDERS: ATTEND Nurse Practitioner Adult Health
DX: Z51.5 Encounter for palliative care (principal); I69.354 Hemiplegia and hemiparesis following cerebral infarction affecting left non-dominant side; G89.29 Other chronic pain; M48.061 Spinal stenosis, lumbar region without neurogenic claudication; K59.03 Drug induced constipation; T40.2X5A Adverse effect of other opioids, initial encounter; I10 Essential (primary) hypertension; Z79.899 Other long term (current) drug therapy; Z79.891 Long term (current) use of opiate analgesic; Z63.79 Other stressful life events affecting family and household; Z66 Do not resuscitate
CPT/HCPCS: 99349

== ENCOUNTER 2019-10-18 15:48 | Outpatient (CLI) | payer MEDICARE, OTHER ==
--- NOTE | 2019-10-18 16:23 | CONSULTATION NOTE ---
Palliative Care Follow Up - Referral Referring Provider: Dr. Mccarthy Time of Visit: [id number] Referral setting: Home Referral Reason: Chronic Back Pain/Left hemiparesis - Information Sources Records reviewed: Previous records reviewed History/Review of Systems obtained from: Patient, Family (Charles present most of visit) Exam limitations: No limitations - History of Present Illness Update Brief HPI Update: This is a hanna 89-year-old woman with a significant history of at least 2 known catastrophic strokes, with ongoing residual left-sided weakness, hereditary hyperlipidemia, with intolerance to statins, and severe progressive lumbar spinal stenosis with increasing lower extremity numbness and weakness. Patient has been having an increased functional decline related to this, or difficulty with balance, and today presents with worsening pain. Patient's pain is fairly pinpoint in her lower lumbar region, has known scoliosis/stenosis and has been very resistant for further imaging or work-up. She though was able to have fairly good pain relief, with intermittent hydrocodone 5 mg/acetaminophen 325 mg as she would get relief with sitting or laying down. She reports now her pain is persistent through the day, with very little relief, except for when she is sleeping. We had talked earlier about time-released medication, given her persistent pain and worsening pain overall. She had called requesting to have an evaluation and consider this as an option. Her functional status is declining as well, she is still able to ambulate out to her chair, finds herself sleeping more, needing more assistance in and out of bed, and no longer able to bathe. Her daughter is coming and assisting her weekly with personal care. Patient's biggest concern, which is impacting her stressors, and her hypertension is her . He does have a diagnosis of STM loss with mild cognitive impairment, She reports though he has been getting lost when he is driving places, and because of COVID-19, has not been working in his loss of routine. He looks quite thin and frail, quite cachectic. He himself had a compression fracture few months ago, and is challenged with meeting her increasing care needs. She is expressing she is now willing to look further into hiring some assistance, and is worried about how they are going to manage moving into the future. Social History - Living Situation Living arrangement: At home Living Situation: With spouse/s.o. Support System: She lives in her own home, spends most of her time in bed in recliner. She does have a lifeline button. Her is quite adoring of her, but he is becoming more frail. He had been still working, they had met at the eye shop, and worked together for many years. She has lost a son, which still causes her significant grief, has one daughter with severe health problems, and one daughter who is still working but does come weekly to assist. Patient has been homebound for over 7 years, but is needing increasing assistance. Medications/Allergies - Medications Home Medications: Ambulatory Orders Medication Instructions Recorded Confirmed Hydrochlorothiazide 25 mg PO DAILY 05/08/14 10/18/19 HYDROcod/ACETAM 5/325 [Vicodin 1 - 2 ea PO Q4HR PRN MDD 8 tabs 07/18/15 10/18/19 5/325] Losartan Potassium 100 mg PO DAILY 08/08/15 10/18/19 Aspirin [Adult Low Dose Aspirin EC] 81 mg PO BID 01/11/17 10/18/19 Docusate Sodium 400 mg PO DAILY 01/11/17 10/18/19 Senna [Senokot] 17.2 gm PO TID 01/11/17 10/18/19 Metoprolol Tartrate 25 mg PO BID 04/15/17 10/18/19 Omeprazole 20 mg PO BID 06/22/17 10/18/19 Erythromycin Base [Erythromycin 1 applic EACHEYE DAILY PRN 08/16/17 10/18/19 Ophthalmic Ointment] Cyanocobalamin (Vitamin B-12) 1,000 mcg SL DAILY 09/13/18 10/18/19 [Vitamin B-12 (1000 mcg sublingual)] Morphine ER 15 mg PO BID 10/18/19 10/18/19 Ondansetron [Zuplenz] 4 mg PO Q8HR PRN 10/18/19 10/18/19 - Allergies Allergies/Adverse Reactions: Allergies Allergy/AdvReac Type Severity Reaction Status Date / Time [id number] Reductase AdvReac Severe Unknown Verified 01/11/17 11:20 Inhibitor Review of Systems - Constitutional Constitutional: reports: Fatigue, Weakness. denies: Fever, Chills - Eyes Eyes: reports: Vision loss, Other (blepheritis) - Ears, Nose & Throat Ears, Nose & Throat: reports: Dry mouth - Cardiovascular Cardiovascular: reports: Decr. exercise tolerance - Respiratory Respiratory: denies: SOB at rest - Gastrointestinal Gastrointestinal: reports: Nausea (2-3x a week noted; usually associated with eating), Reflux/heartburn, Good appetite, Other (trying to loose 7 pounds) - Genitourinary Genitourinary: reports: Urgency, Incontinence (stress) - Musculoskeletal Musculoskeletal: reports: Back pain (worsening), Stiffness, Muscle weakness, Assistive devices (uses rolling walker), Other (only can tolerated walking a to recliner; diff getting in and out of bed; fluctuates) - Integumentary Integumentary: reports: Dryness - Neurological Neurological: reports: General weakness - Psychiatric Psychiatric: reports: Depression, Anxiety - Hematologic/Lymphatic Hematologic/Lymphatic: denies: Recurrent infections - All Other Systems All Other Systems: reports: Reviewed and negative Physical Exam - Vital Signs Temperature: 97.0 C Pulse Rate: 59 Respiratory Rate: 18 O2 Saturation: 97 (ra @ rest) Blood Pressure: 132/70 - Physical Exam General Appearance: positive: No acute distress, Alert Eyes Bilateral: positive: Conjunctivae nml ENT: negative: Pharyngeal erythema Neck: positive: Trachea midline Cardiovascular: positive: Regular rate & rhythm Respiratory: positive: No respiratory distress, Breath sounds nml Abdomen: positive: Non-tender, Soft, Nml bowel sounds Skin: positive: Pallor, Dryness Extremities: positive: No pedal edema Neurologic/Psychiatric: positive: Oriented x3, Mood/affect nml, Weakness Palliative Care - POLST Patient has POLST: Yes POLST Status: DNR, Comfort Measures Pain: Pain worsening, Location Tiredness/Fatigue: Moderate (4-6) Drowsiness/Sedation: Moderate (4-6) Nausea: Mild (1-3) (intermittent) Anorexia: None Dyspnea: None Depression: Moderate (4-6) Anxiety: Moderate (4-6) (worried about ) Feelings of wellbeing/Perceived Quality of Life: Fair, Worsening Sleep: Sleeps well Constipation: Yes, Opoid induced, Managed Performance Status: Patient's functional status is worsening, spending more time in bed, still comes up to the recliner. Needing more assistance, was able to self feed, can do no meal prep, cannot shower anymore and more difficulty doing her hair in sink or anything that requires standing. - Palliative Care Discussion: Patient with worsening pain, and poor pain control. It is impacting her quality of life, and adding to her suffering. Patient does recognize and expect ongoing decline related to her degenerative process and aging. She is been pretty clear she will not do any follow-up or imaging, reports there is "nothing they can do". She is worried though as she becomes more frail, and her is worsening as well about what kind of support they are going to need. She remains quite better about having been told she had 2 weeks to 6 months over 3 years ago. She is though recognizing that things are changing, is hoping to make it to her 89th birthday. She is willing to talk to the medical palliative care social media marketing analyst, to be able to get increased assistance or at least delay the groundwork. Impression and Recommendations - Palliative Care Impression: This is an 89-year-old woman who has history of strokes, with worsening deficits per her perception and functional decline. Her most pressing problem has been her progressive and severe lumbar back pain and now pain is persistent versus fluctuating. Palliative care providing support for pain and symptom management as well as anticipatory guidance. Recommendations/Counseling Done: 1. Acute on chronic back pain. This is multifactorial in origin, most likely severe regarding her lumbar stenosis and continue degenerative disease process. We had trialed some gabapentin, she reports with no improvement. She has been taking hydrocodone 5 mg / 325 mg acetaminophen 4-5 times a day, though she waits until her pain is severe. Pain is been fluctuating in the past, now is persistent and unrelenting. She would like to trial some sustained release pain medication, hydrocodone does come and sustained release, but still is most often not approved as it is not generic. Explained hydrocodone breaks down to morphine, given her current dosing, will start her on MS Contin 15 mg daily, then add second dose after 3 days seeing how she responds. Counseling provided regarding using the Vicodin half tab to 1 tab for breakthrough pain, and to notify me if she is needing 4-5 doses of breakthrough pain medication. This was all written out for her, patient was able to verbalize understanding and plan. They will pick it up and start tomorrow. 2. Constipation. Patient is currently taking 4 senna with 2 daughters and "5 prunes". Counseling provided may need to titrate up senna again to manage increase in opioid use. Patient verbalized understanding. 2 3. Nausea. This is a new symptom for patient, reports is often in conjunction with things that she is eaten. She is on omeprazole twice daily, because of severe GERD. Did order ondansetron 4 mg every 8 hours as needed. 4. Hemiplegia left side. Patient reports functional decline on left side, with decreasing fine motor movement in her left upper extremity, and increased difficulty with numbness and ambulating with her left lower extremity. She reports this is been gradual over the last several months, no acute trauma and no signs or symptoms of TIA or aches bended or new stroke. Patient does understand she is at high risk for recurrent stroke, has had some episodes of hypertension related to increased stressors with her . 5. Hypertension. Patient currently has acceptable level today 132/70, she reports this is fairly consistent for her. It does spike when she has high anxiety, this often can also lead to headaches and nausea. Mostly it has been attributed to issues with her , and she did share a couple specific ones, she is very concerned about his declining cognition and worried about his safety. 6. Anxiety. Patient tries to put everything in a positive light, does recognize that things are starting to unravel. She is getting some support from her family, but recognizing most likely will need to have increased caregiving in place. We did discuss having the medical palliative care social media marketing analyst come meet with him, and start to lay the ground work. She is worried about finances, but also about her 's health. He is a primary caregiver for her, unclear what the long-term plan would be if he continues to worsen as well. 7. Advanced care planning. Patient does have a POLST with comfort measures, she very much does not want to go to the hospital, she perceives that her end-of-life event will be another stroke, but she is becoming much more debilitated. She does have a strong gia, is not dying she is worried about, but worried about her and impact on her family. Counseling provided to normalize her grief and loss and validate her concerns. Time Spent: 45 minutes with greater than 50% of this done in counseling regarding counseling provided regarding pain management, safety, Coordination of care, and anticipatory guidance.
== END 2019-10-18 15:49 | disposition home or self-care (01) ==
LOC: PC 15:48
PROVIDERS: ATTEND Nurse Practitioner Adult Health
DX: Z51.5 Encounter for palliative care (principal); I69.354 Hemiplegia and hemiparesis following cerebral infarction affecting left non-dominant side; G89.29 Other chronic pain; M48.061 Spinal stenosis, lumbar region without neurogenic claudication; K59.03 Drug induced constipation; T40.2X5A Adverse effect of other opioids, initial encounter; R11.0 Nausea; I10 Essential (primary) hypertension; F41.9 Anxiety disorder, unspecified; Z79.899 Other long term (current) drug therapy; Z79.891 Long term (current) use of opiate analgesic; Z63.79 Other stressful life events affecting family and household; Z66 Do not resuscitate
CPT/HCPCS: 99349

== ENCOUNTER 2020-01-08 11:50 | Outpatient (CLI) | payer MEDICARE, OTHER ==
--- NOTE | 2020-01-08 17:13 | CONSULTATION NOTE ---
Palliative Care Follow Up - Referral Referring Provider: Dr. Angelo Mccarthy Time of Visit: Referral setting: Home Referral Reason: HTN/Chronic Back Pain/Anxiety - Information Sources Records reviewed: Previous records reviewed History/Review of Systems obtained from: Patient, Family ( Charles present) Exam limitations: No limitations - History of Present Illness Update Brief HPI Update: This is a hanna 89-year-old woman with a significant history of at least known 2 strokes, with ongoing progressive residual left-sided weakness, known hereditary hyperlipidemia with intolerance to statins, severe progressive lumbar stenosis with increasing lower extremity numbness and weakness. She is continued to have increasing functional decline related to this, she had been able to ambulate short distances, now she can stand less than 2 minutes, she is spending much more time as far is in bed and in her reclining recliner. She cannot stand to brush her teeth, she has to sit on the toilet for most activities. They did try the wheelchair, as she did have one episode where she was unable to get out of bed because of pain and weakness. This was somewhat distressing for her, as she is perceiving in the future she will be bedbound. She does report increasing trouble with her blood pressure, today it was 142/88, but she has had as high as 165/111, she reports herself "going flat". We discussed in the context of her high risk, that we should probably add at least a little something, patient is very resistant to any kind of medication changes or change overall. She did agree to a small dose of amlodipine 2.5 mg, we will monitor. Patient's pain has continued to progress, we had agreed to trial some long- acting morphine, did improve her pain overall, she decided in the end to stick with her hydrocodone. She is still taking only 1 hydrocodone about 4 times a day with only moderate relief. It last for about 3 hours, it sharp shooting in her area of lumbar stenosis, such that she cannot even stand, and continues to be resistant to adding any other kind of medications. We had trialed adding some gabapentin, she just gets too anxious about changes. Her anxiety is also significantly worsening, as her 's dementia is worsening. He has finally quit work, but still needs quite a bit of cueing, he does have severe back pain. As she is needed more physical help this is become more problematic. They have been working with the medical palliative care clinical social work therapist for further long-term plan, but they remain quite resistant to bringing anybody and at this point. We did go talk about what would happen if her episode of not getting out of bed, what it would like to have her to be bedbound, and how would they managed that in their current situation. Patient's past medical history includes hypertension, hyperlipidemia, pseudobulbar affect, history of stroke, severe spinal stenosis, left-sided weakness, fatigue, hemorrhoids. Social History - Living Situation Living arrangement: At home Living Situation: With spouse/s.o. Support System: Patient lives at home, spends most of her time in bed or in her recliner. She does have a lifeline button. Her now is retired, his dementia has significantly worsened, she does need to cue him and track him fairly carefully. He does help her with physically, but has a very bad back. She has a daughter who has had a stroke, but she does come weekly and provide support. She also has a son and another daughter, as well as a son who is . Medications/Allergies - Medications Home Medications: Ambulatory Orders Medication Instructions Recorded Confirmed Hydrochlorothiazide 25 mg PO DAILY 05/08/14 01/08/20 HYDROcod/ACETAM 5/325 [Vicodin 1 - 2 ea PO Q4HR PRN MDD 8 tabs 07/18/15 01/08/20 5/325] Losartan Potassium 100 mg PO DAILY 08/08/15 01/08/20 Aspirin [Adult Low Dose Aspirin EC] 81 mg PO BID 01/11/17 01/08/20 Docusate Sodium 3 tab PO QPM 01/11/17 01/08/20 Senna [Senokot] 4 tab PO DAILY PM 01/11/17 01/08/20 Metoprolol Tartrate 25 mg PO BID 04/15/17 01/08/20 Omeprazole 20 mg PO BID 06/22/17 01/08/20 Erythromycin Base [Erythromycin 1 applic EACHEYE DAILY PRN 08/16/17 01/08/20 Ophthalmic Ointment] Cyanocobalamin (Vitamin B-12) 1,000 mcg SL DAILY 09/13/18 01/08/20 [Vitamin B-12 (1000 mcg sublingual)] Ondansetron [Zuplenz] 4 mg PO Q8HR PRN 10/18/19 01/08/20 amLODIPine [Norvasc] 2.5 mg PO DAILY 01/08/20 01/08/20 - Allergies Allergies/Adverse Reactions: Allergies Allergy/AdvReac Type Severity Reaction Status Date / Time [id number] Reductase AdvReac Severe Unknown Verified 01/11/17 11:20 Inhibitor Review of Systems - Constitutional Constitutional: reports: Fatigue (worsening; sleeps late and late afternoon nap), Weakness, Weight stable. denies: Fever - Eyes Eyes: reports: Vision loss, Corrective lenses - Ears, Nose & Throat Ears, Nose & Throat: reports: Dry mouth - Cardiovascular Cardiovascular: reports: Decr. exercise tolerance. denies: Chest pain, Edema - Respiratory Respiratory: reports: SOB with exertion. denies: Cough, SOB at rest - Gastrointestinal Gastrointestinal: reports: Constipation, Nausea (occasional), Reflux/heartburn, Good appetite (difficulty related to food and availability as can't cook). denies: Rectal bleeding - Genitourinary Genitourinary: reports: Incontinence (worsening) - Musculoskeletal Musculoskeletal: reports: Back pain, Muscle aches, Stiffness, Limited range of motion, Muscle weakness, Assistive devices (uses walker for very short distances), Transfer issues (unable to use wheelchair in house because of carpet; transport doesn't work because she is too heavy for husbands back) - Integumentary Integumentary: reports: Dryness. denies: Rash - Neurological Neurological: reports: General weakness, Focal weakness (left side worsening), Numbness (bilateral LE). denies: Headache, Memory problems - Psychiatric Psychiatric: reports: Depression, Anxiety (related to ) - Hematologic/Lymphatic Hematologic/Lymphatic: denies: Recurrent infections - All Other Systems All Other Systems: reports: Reviewed and negative Physical Exam - Vital Signs Temperature: 97.2 C Pulse Rate: 68 Respiratory Rate: 18 O2 Saturation: 97 (ra @ rest) Blood Pressure: 142/88 - Physical Exam General Appearance: positive: Alert, Mild distress Eyes Bilateral: positive: Normal inspection ENT: positive: No signs of dehydration Neck: positive: Trachea midline Cardiovascular: positive: Regular rate & rhythm Respiratory: positive: No respiratory distress, Breath sounds nml Abdomen: positive: Non-tender, Soft, Nml bowel sounds Skin: positive: Pallor, Dryness Extremities: positive: No pedal edema Neurologic/Psychiatric: positive: Oriented x3, Mood/affect nml, Weakness Palliative Care - POLST Patient has POLST: Yes POLST Status: DNR, Comfort Measures Pain: Pain worsening, Location Tiredness/Fatigue: Severe (7-10) Drowsiness/Sedation: Moderate (4-6) Nausea: Mild (1-3) Anorexia: None Dyspnea: None Depression: Mild (1-3) Anxiety: Moderate (4-6) Feelings of wellbeing/Perceived Quality of Life: Good, Acceptable, Worsening Sleep: Sleeps well Constipation: Yes, Opoid induced, Managed Performance Status: Patient's functional status continues to decline, is helping her with dressing, she is still able to transfer, and walk short distances out to her recliner. She is spending more time in bed, and more time sleeping overall. Her strength is worsening, she is noted quite a few changes in the last few weeks. She reports her left side is continued to cause difficult cold things, and continues with persistent numbness. - Palliative Care Discussion: Both patient and are very thankful for what they have, are continue to just focus on the day today. Is very hard for them to move forward in a long- term planning, until absolutely needed. Patient is very concerned about her , as his memory has worsened, including not able to work the stove, they do now have a new fire alarm. She does have a mirror so she can see him in the kitchen. He does need frequent cueing and reminding. He is able to help her, he does have some insight into his memory problems. She does perceive herself she is not as good as she was, she does understand she is on their "last leg of her journey". She continues to try and stay positive, but was willing to explore some what it might look like if she were to become bedbound and what her needs might be. She perceives she would hire someone, though I suspect that that may or may not be enough. She has enjoyed visits with the palliative care clinical social work therapist, unfortunate most likely patient is not going to move forward until crisis. We did discuss in the context of this if she cannot find someone at least in the short-term, could use agencies, she is willing to consider this. Patient is hopeful to stay home for as long as possible, she does not want to go in a jail, though does perceive this may be her end-of-life journey given the limitations of what her can provide. Impression and Recommendations - Palliative Care Impression: This is 89-year-old woman with a history of multiple strokes, residual left- sided weakness, progressive and severe lumbar back pain with increasing neuropathic symptoms, worsening functional status, and now worsening hypertension. Palliative care to continue provide support regarding acute on chronic back pain, opioid support, as well as anticipatory guidance. Recommendations/Counseling Done: 1. Chronic pain. This is multifactorial in origin, most likely severe regarding her lumbar stenosis and continued degenerative disease process. Patient has not wanted any further work-up, have discussed multiple times of follow-up for the neurology, or looking at further injections, she just gets too overwhelmed with this. We have tried to attempt to adjust her pain regimen, to make it more effective, but continues to be quite wedded to her Vicodin 3-4 times a day though she has poor pain control. Also though is related to her feeling she needs to be hypervigilant to be able to monitor her and his declining cognitive state. 2. Constipation. 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 3. Hypertension. Patient has been having worsening readings, she is very resistant to considering altering her regimen. Will add amlodipine 2.5 mg daily in hopes to get better control. Patient has been instructed to monitor 2 times daily, will follow-up in 2 weeks either by visit or phone. 4. Status post CVA. Patient continues with left-sided symptoms from her str gilles, she denies any acute signs or symptoms of recurrent symptoms TIA. She continues to try and do exercises to keep her cognitively sharp, she does feel quite responsible for the 2 of them and moving them through this next few months. 5. Advanced care planning. Patient was willing to visit a little bit to get related to her most recent day that she was unable to get out of bed, concern about a long-term plan. Her remains quite frail, would not be able to manage her heavy care needs. Did discuss if she were to be bedbound, where she might want a hospital bed, the role for paid caregivers, at this point in time they feel like they are coping fairly well, do have the information from the medical palliative care clinical social work therapist, most likely will end up in crisis, will continue to follow closely. Time Spent: 45 minutes with getting 50% of this done in counseling regarding pain and symptom management, management of hypertension, coordination of care with palliative care team.
== END 2020-01-08 11:51 | disposition home or self-care (01) ==
LOC: PC 11:50
PROVIDERS: ATTEND Nurse Practitioner Adult Health
DX: Z51.5 Encounter for palliative care (principal); G89.29 Other chronic pain; M48.061 Spinal stenosis, lumbar region without neurogenic claudication; I69.354 Hemiplegia and hemiparesis following cerebral infarction affecting left non-dominant side; F41.9 Anxiety disorder, unspecified; R53.83 Other fatigue; I10 Essential (primary) hypertension; K59.03 Drug induced constipation; T40.2X5A Adverse effect of other opioids, initial encounter; Z79.899 Other long term (current) drug therapy; Z79.891 Long term (current) use of opiate analgesic; Z79.82 Long term (current) use of aspirin; Z63.6 Dependent relative needing care at home; Z66 Do not resuscitate
CPT/HCPCS: 99349

== ENCOUNTER 2020-04-17 12:45 | Outpatient (CLI) | payer MEDICARE, OTHER ==
--- NOTE | 2020-04-17 17:32 | CONSULTATION NOTE ---
Palliative Care Follow Up - Referral Referring Provider: Dr. Mccarthy Time of Visit: [id number] Referral setting: Home Referral Reason: Anxiety/Back Pain/HTN - Information Sources Records reviewed: Previous records reviewed History/Review of Systems obtained from: Patient Exam limitations: No limitations - History of Present Illness Update Brief HPI Update: This is an 89-year-old woman with a history of at least 2 known strokes, with ongoing progressive residual left-sided weakness, known hereditary hyperlipidemia with intolerance to statins, severe and progressing lumbar stenosis with increased lower extremity numbness and weakness. Patient is continued to have increased functional decline related to her stenosis, she is only able to ambulate short distances, tolerate standing for 1 to 2 minutes. She is spending more time in bed, and is sedentary rest of the time in a recliner. She has had worsening blood pressure problems, this is related to her complex social situation. Her has had rapidly progressive dementia, now most recently in the hospital with urinary obstruction, he has been her primary caregiver, and now she is overseeing his caregiving. They do have hired caregiver, this is just started, unfortunately she did not show up today so patient is in significant amount of anxiety. Patient is very resistant though most likely would benefit from changes in both her management of her hypertension and her pain. Past Medical History: Hypertension, hyperlipidemia, pseudobulbar affect, history of stroke, severe spinal stenosis, left-sided weakness, fatigue, hemorrhoids, chronic constipation Social History - Living Situation Living arrangement: At home Living Situation: With spouse/s.o. Support System: Patient and her live in their own home, they do have [employer]. Her who is now retired, has continued to deteriorate rapidly cognitively, and now physically as he is recently been hospitalized. Her [id number] did set up in some support for financial in assisting pay bills, and did set up a caregiving through [facility]. She had fired them because it was too expensive, has been trying to hire privately, but on showing up today, her caregiver had been, and they had no way to get lunch. A friend had bailed him out, and came over the bathed Charles and help him get breakfast. [place], and cannot assist, she is feeling overwhelmed. She is very dependent on their friend "Vijay" who has been a caregiver in the past, who is helping them to locate caregiving assistance. Medications/Allergies - Medications Home Medications: Ambulatory Orders Medication Instructions Recorded Confirmed Hydrochlorothiazide 25 mg PO DAILY 05/08/14 04/20/20 HYDROcod/ACETAM 5/325 [Vicodin 1 - 2 ea PO Q4HR PRN MDD 8 tabs 07/18/15 04/20/20 5/325] Losartan Potassium 100 mg PO DAILY 08/08/15 04/20/20 Aspirin [Adult Low Dose Aspirin EC] 81 mg PO BID 01/11/17 04/20/20 Docusate Sodium 3 tab PO QPM 01/11/17 04/20/20 Senna [Senokot] 4 tab PO DAILY PM 01/11/17 04/20/20 Metoprolol Tartrate 25 mg PO BID 04/15/17 04/20/20 Omeprazole 20 mg PO BID 06/22/17 04/20/20 Erythromycin Base [Erythromycin 1 applic EACHEYE DAILY PRN 08/16/17 04/20/20 Ophthalmic Ointment] Cyanocobalamin (Vitamin B-12) 1,000 mcg SL DAILY 09/13/18 04/20/20 [Vitamin B-12 (1000 mcg sublingual)] Ondansetron [Zuplenz] 4 mg PO Q8HR PRN 10/18/19 04/20/20 - Allergies Allergies/Adverse Reactions: Allergies Allergy/AdvReac Type Severity Reaction Status Date / Time Rlpuppc-Aio-Mmq Reductase AdvReac Severe Unknown Verified 01/11/17 11:20 Inhibitor Review of Systems - Constitutional Constitutional: reports: Fatigue (worsening), Weakness. denies: Fever, Chills - Eyes Eyes: reports: Vision loss - Ears, Nose & Throat Ears, Nose & Throat: reports: Hearing loss - Cardiovascular Cardiovascular: reports: Decr. exercise tolerance - Respiratory Respiratory: denies: Cough, SOB at rest - Gastrointestinal Gastrointestinal: reports: Good appetite (needing assist with meal prep). denies: Constipation (controlled) - Genitourinary Genitourinary: reports: Frequency - Musculoskeletal Musculoskeletal: reports: Back pain, Muscle aches, Stiffness, Muscle weakness, Assistive devices (uses rollling walker) - Integumentary Integumentary: reports: Dryness - Neurological Neurological: reports: General weakness, Focal weakness (reports left sided more notable), Numbness (bilaterally), Abnormal gait - Psychiatric Psychiatric: reports: Depression, Anxiety - All Other Systems All Other Systems: reports: Reviewed and negative Physical Exam - Vital Signs Temperature: 97.5 C Pulse Rate: 102 Respiratory Rate: 18 Blood Pressure: 159/98 - Physical Exam General Appearance: positive: Alert, Mild distress, Anxious Eyes Bilateral: positive: Normal inspection ENT: positive: No signs of dehydration Neck: positive: Trachea midline Cardiovascular: positive: Regular rate & rhythm Respiratory: positive: No respiratory distress, Breath sounds nml Abdomen: positive: Non-tender, Soft, Nml bowel sounds Skin: positive: Pallor, Dryness Extremities: positive: No pedal edema Neurologic/Psychiatric: positive: Oriented x3, Weakness, Depressed mood/affect Palliative Care - POLST Patient has POLST: Yes POLST Status: DNR, Comfort Measures Pain: Pain worsening, Location (lumbar area; worse with standing and walking; relieved with laying, now some with sitting), Severity (mod/severe; okay at rest), Comment (using vicodin 1 tab every 4 hours about 5-6/24 hours) Tiredness/Fatigue: Moderate (4-6) Drowsiness/Sedation: Mild (1-3) (takes mid day nap) Nausea: None Anorexia: Mild (1-3) Dyspnea: None Depression: Moderate (4-6) (attributes to current situation) Anxiety: Severe (7-10) (caregiver did not show up or call today) Feelings of wellbeing/Perceived Quality of Life: Fair, Worsening Sleep: Sleeps well Constipation: Yes, Opoid induced, Managed Performance Status: Patient does need assistance in getting in and out of bed, unfortunately her can no longer do this. She says she is "managing" though it is "not pretty". When she has caregivers there, they can help her and position her. She is unable to bathe, she does to bed/spit up as and her daughter helps her wash her hair about once a week. She is unable to stand to be able to do meal prep, she has hired for household tasks would benefit from better cooking/meal prep support.They are just warming up soup, and using instant meals. Though this is not much different from their pattern before, as her would often just stop and picking machine operator helper take out - Palliative Care Discussion: Patient is somewhat beside herself, as her caregiver had not shown up. She reports they had hired someone that they were quite pleased with, but was becoming less dependable as far as showing up on time etc. She did reach out to her friend "Vijay", who has connections with other caregivers, he is going to try and find her someone may indeed himself provide support. We did discuss in the context of the current acute situation, I would recommend that they reach out back to [facility], though this is expensive at least it is dependable until a longer term solution is found. Patient is in agreement. We did discuss her [id number] helping her navigate some of this, unfortunately she is in [place] at the time. Though she is helping set up there financial. Discussed again given the severity situation, they need to complete their end-of-life planning and DPOA paperwork, reviewed Charles would not be able to provide support or adequate decision making if she were to have a stroke or become more incapacitated. They are also going to need much more robust long-term plan, as patient's is quite frail and has been her caregiver. 's daughter had been out to help them, she reports that was more stressful than helpful, her blood pressure went skyhigh, we did discuss concern for her another stroke, and their ability to manage their current situation. Impression and Recommendations - Palliative Care Impression: This is an 89-year-old woman with history of multiple strokes, residual left- sided weakness, progressive and severe lumbar pain with increasing neuropathic symptoms, worsening functional status and fluctuating concern for hypertension. Patient now presents with complex social situation with deterioration in her 's health, and an acute care crisis her caregiving today. Palliative care to continue provide support regarding pain and symptom management as well as anticipatory guidance. Recommendations/Counseling Done: 1. Chronic back pain. This is multifactorial in origin, most likely severe regarding lumbar stenosis with continued degenerative disease processes. Patient has refused any further work-up, as well as looking at further injections she gets overwhelmed by considering even following through this. I have attempted multiple times to adjust her regimen, to make it more effective but she is continuing to come new her Vicodin, she is using 4-5 times a day, with only moderate pain control. Patient is quite concerned that she needs to remain hypervigilant to oversee her current situation. 2. Hypertension. Patient has been having fluctuating blood pressures, particularly with added anxiety and stress. Counseling provided regarding her risk of stroke, and she had abandon the amlodipine because it made her "feel terrible". She really is unwilling to make any further changes and feeling quite overwhelmed at the moment. She would benefit from adjustments from her medications but has declined at this point time. She just wants things to "settle down" and she will feel better per her perception. 3. Constipation. 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 4. Status post CVA. Patient continues with left-sided symptoms from stroke, she denies any acute signs or symptoms of recurrent TIA despite elevated blood pressures. She does try and keep herself "sharp". She is quite anxious that she does see she needs to oversee their care 5. Advanced care planning. Attempted to hire private caregiver during assistance, she is continue to work on this with the support from her friend Vijay. Does report her [id number] has been helpful as well, when she comes back that they continue to work on a more solid plan. Did reach out to home health RN who is caring for patient's , reviewed patient is not able to care for himself, has severe dementia. Recommended include and instruction on medications, so she can better oversee his care. Will reach out to medical palliative care psychotherapist social worker see if there is anything else I can do as far as providing support in the current situation. Time Spent: 45 minutes with greater than 50% of this done with counseling, processing acute situation, recommendations for both pain and hypertension management declined, will continue to provide support and reapproach from patient less anxious.
== END 2020-04-17 12:46 | disposition home or self-care (01) ==
LOC: PC 12:45
PROVIDERS: ATTEND Nurse Practitioner Adult Health
DX: Z51.5 Encounter for palliative care (principal); G89.29 Other chronic pain; M54.9 Dorsalgia, unspecified; I10 Essential (primary) hypertension; K59.00 Constipation, unspecified; I69.354 Hemiplegia and hemiparesis following cerebral infarction affecting left non-dominant side; Z66 Do not resuscitate
CPT/HCPCS: 99349

== ENCOUNTER 2020-06-18 14:00 | Outpatient (CLI) | payer MEDICARE, OTHER ==
--- NOTE | 2020-06-18 17:59 | CONSULTATION NOTE ---
Palliative Care Follow Up - Referral Referring Provider: Dr. Pradip Mccarthy Time of Visit: [id number] Referral setting: Home Referral Reason: Rash/Back Pain/Anxiety/HTN - Information Sources Records reviewed: Previous records reviewed History/Review of Systems obtained from: Patient Exam limitations: No limitations - History of Present Illness Update Brief HPI Update: This is an 89-year-old woman with history of strokes, with ongoing progressive left sided weakness, known hereditary hyperlipidemia with intolerance to statins, and most pressing is her severe and progressing lumbar stenosis with increased lower extremity numbness and weakness. Patient has had progressive functional decline, she still continues to try and ambulate with her walker, though she is only able to tolerate this for short distances secondary to her severe pain with standing. She is starting to have pain with sitting as well, is spending more time in bed. Though she does try and continue her exercises to remain as functional as possible. She though has recently been too fearful of falls and has not been able to get in the shower. She had called regarding a rash,. On examination she has scattered flat pink lesions plaques. No redness or erythema, no pustules. In review these are mostly around her back, groin area, top of thighs, suspect given patient using topical emollients and rinse list wash claws for several months. She does have built up skin particularly on her lower extremities. She does have some pruritus regarding this, has been using some old triamcinolone with some improvement of discomfort. Patient does have small less than half centimeter growth on her outer left ear. Unfortunately she sleeps on that side, is quite tender and uncomfortable. On examination it does appear most likely to be a basal cell carcinoma versus pressure sore. Patient reports a couple periods of hypotension, with dizziness. She does have caregivers now, who are providing her medications, patient has had persistent hypertension. She does not feel like she is getting an appropriate medications, though certainly is of concern. She reports this is happened 2-3 times, today she presents as 148/68 and pulse of 70. She will continue to monitor. Patient has underlying anxiety, this is been exacerbated by her 's continued decline with rapidly progressing dementia. They are stressed by finances do need to hire caregivers, they have settled on a couple hours in the morning, and couple hours in the evening. Providers are helping Charles with personal care, cleaning, as well as cooking. She reports children are bringing food, and kids have taken over finances. She is trying to take things "a day at a time". She is feeling quite vulnerable as she is supervising her , though he is still ambulatory and can with walker get around. Past Medical History: Hypertension, hyperlipidemia, pseudobulbar affect, history of strokes x2, severe spinal stenosis, left-sided weakness, hip fracture, fatigue, hemorrhoids, chronic constipation. Social History - Living Situation Living arrangement: At home Living Situation: With spouse/s.o. Support System: Patient and her are currently living in their own home. She does have [employer]. Her is finally retired, but has continued to deteriorate rapidly cognitively. She is getting some assistance from her family now, trying to minimize caregiving hours, but recognizes need supports. She does feel like she has people to call if she is in trouble, she herself is still cognitively intact and doing most of the oversight for both of them. Medications/Allergies - Medications Home Medications: Ambulatory Orders Medication Instructions Recorded Confirmed Hydrochlorothiazide 25 mg PO DAILY 05/08/14 06/19/20 HYDROcod/ACETAM 5/325 [Vicodin 1 - 2 ea PO Q4HR PRN MDD 8 tabs 07/18/15 06/19/20 5/325] Losartan Potassium 100 mg PO DAILY 08/08/15 06/19/20 Aspirin [Adult Low Dose Aspirin EC] 81 mg PO BID 01/11/17 06/19/20 Docusate Sodium 3 tab PO QPM 01/11/17 06/19/20 Senna [Senokot] 3 tab PO DAILY PM 01/11/17 06/19/20 Metoprolol Tartrate 25 mg PO BID 04/15/17 06/19/20 Omeprazole 20 mg PO BID 06/22/17 06/19/20 Erythromycin Base [Erythromycin 1 applic EACHEYE DAILY PRN 08/16/17 06/19/20 Ophthalmic Ointment] Cyanocobalamin (Vitamin B-12) 1,000 mcg SL DAILY 09/13/18 06/19/20 [Vitamin B-12 (1000 mcg sublingual)] Ondansetron [Zuplenz] 4 mg PO Q8HR PRN 10/18/19 06/19/20 Triamcinolone 0.1% Oint [Kenalog 1 applic TOP BID PRN 06/19/20 06/19/20 0.1% Oint] - Allergies Allergies/Adverse Reactions: Allergies Allergy/AdvReac Type Severity Reaction Status Date / Time Dmoirqz-Cqn-Ndf Reductase AdvReac Severe Unknown Verified 01/11/17 11:20 Inhibitor Review of Systems - Constitutional Constitutional: reports: Fatigue (remains persistent/worsening), Weakness. denies: Fever, Chills - Eyes Eyes: reports: Vision loss - Ears, Nose & Throat Ears, Nose & Throat: reports: Hearing loss - Cardiovascular Cardiovascular: reports: Lightheadedness, Decr. exercise tolerance. denies: Chest pain - Respiratory Respiratory: denies: SOB at rest - Gastrointestinal Gastrointestinal: reports: Good appetite (needing assist with meal prep). denies: Constipation (controlled) - Genitourinary Genitourinary: reports: Frequency - Musculoskeletal Musculoskeletal: reports: Back pain, Muscle aches, Stiffness, Muscle weakness, Assistive devices (uses rollling walker) - Integumentary Integumentary: reports: Rash, Pruritis, Lesions, Dryness - Neurological Neurological: reports: General weakness, Focal weakness (reports left sided more notable), Numbness (bilaterally continues to progress), Abnormal gait - Psychiatric Psychiatric: reports: Depression, Anxiety - All Other Systems All Other Systems: reports: Reviewed and negative Physical Exam - Vital Signs Temperature: 96.7 C Pulse Rate: 70 Respiratory Rate: 18 O2 Saturation: 96 (ra @ rest) Blood Pressure: 148/78 - Physical Exam General Appearance: positive: Alert, Mild distress, Anxious Eyes Bilateral: positive: Normal inspection ENT: positive: No signs of dehydration Neck: positive: Trachea midline Cardiovascular: positive: Regular rate & rhythm Respiratory: positive: No respiratory distress, Breath sounds nml Abdomen: positive: Non-tender, Soft, Nml bowel sounds Skin: positive: Pallor, Dryness, Pruritis, Rash Extremities: positive: No pedal edema Neurologic/Psychiatric: positive: Oriented x3, Weakness, Depressed mood/affect Palliative Care - POLST Patient has POLST: Yes POLST Status: DNR, Comfort Measures Pain: Pain worsening, Location (lower lumbar spine; sharp and localized; using vicodin about 4 x a day;) Tiredness/Fatigue: Moderate (4-6) Drowsiness/Sedation: Mild (1-3) (spending more time in bed because of pain) Nausea: None Anorexia: None Dyspnea: None Depression: Moderate (4-6) Anxiety: Moderate (4-6) Feelings of wellbeing/Perceived Quality of Life: Fair, Acceptable, Worsening Sleep: Sleeps well Constipation: Yes, Opoid induced, Managed Performance Status: Patient is quite sedentary, spends most of her time in bed or in her reclining recliner. She is able to ambulate still short distances with rolling walker. She still tries to do her exercises in the bathroom. She has given up bathing in the shower secondary to concern of falling, and has been no longer can help her. Given her rash and skin concerns, is willing to have caregivers his sister. She does have a set up in the bathtub. - Palliative Care Discussion: Discussion regarding current situation, patient is feeling more vulnerable, and overwhelmed. She is trying to stay standard, and take it a day at a time. She really does not have any long-term plan, if either one of them were to worsen. It is a fine balance and there as far as how they are currently coping, but are getting their needs met. They do have [employer] and friends to call if have urgent needs. Family is more involved per patient's report, will continue to monitor. Patient is unable to get out of the home, is been several months, it is a taxing considerable effort given her pain and functional decline Impression and Recommendations - Palliative Care Impression: This is an 89-year-old woman with history of stroke, residual left-sided weakness, progressive and severe lumbar pain with increasing neuropathic symptoms, declining functional status and now presents with rash. Patient also has complex social situation with deterioration of her 's health, causing more anxiety for patient overall. Palliative care continue to provide support regarding pain and symptom management as well as anticipatory guidance. Recommendations/Counseling Done: 1. Chronic pain. This is multifactorial in origin, attributed most likely to regarding lumbar stenosis and continued degenerative disease process. Patient has refused further work-up, and any changes in her current regimen. She continues on her Vicodin, using 4-5 times a day, with only moderate pain control. Patient has been encouraged to try higher dose of 1-1/2 to see if able to get better control, she is quite concerned she needs to remain hypervigilant to oversee her current situation. We will continue to monitor. 2. Rash. Patient has been instructed to resume bathing, use soft washcloth to scrub skin, use of lotions after bathing. Order triamcinolone acetate 0.1% ointment for application on open areas/lesions. Will notify me if this is not effective, or worsens. 3. Ear lesion. Suspect basal cell carcinoma, is quite small 0.25 cm currently. It is tender though as patient does sleep on that side of her ear. Counseling regarding problem solving for pressure relief with foam guard, did recommend referral to dermatology, or follow-up with PCP to have addressed. Patient is quite homebound, at this point in time is choosing to monitor, though does understand most likely is a skin cancer. 4. Hypertension. She actually has had several episodes of hypotension with symptomatic dizziness, she tends to run high. Reviewed medication adherence and follow-up with caregivers. Patient also encouraged to continue with adequate fluid intake, she is to notify myself/office if recurs or persistent. 5. Advanced care planning. Patient jean marie quite frail, high risk for fall or recurrent stroke. She is feeling quite vulnerable given her current complex social situation. At this point does not want to do any further long-term planning, family has been more involved, continue to monitor her situation. Time Spent: 45 minutes with greater than 50% of this done in counseling regarding symptom management, counseling for anxiety, and anticipatory guidance
== END 2020-06-18 14:01 | disposition home or self-care (01) ==
LOC: PC 14:00
PROVIDERS: ATTEND Nurse Practitioner Adult Health
DX: Z51.5 Encounter for palliative care (principal); G89.29 Other chronic pain; M48.061 Spinal stenosis, lumbar region without neurogenic claudication; R21 Rash and other nonspecific skin eruption; L98.8 Other specified disorders of the skin and subcutaneous tissue; I10 Essential (primary) hypertension; I95.9 Hypotension, unspecified; R42 Dizziness and giddiness; I69.354 Hemiplegia and hemiparesis following cerebral infarction affecting left non-dominant side; E78.5 Hyperlipidemia, unspecified; R29.898 Other symptoms and signs involving the musculoskeletal system; Z66 Do not resuscitate
CPT/HCPCS: 99349

== ENCOUNTER 2020-07-16 13:00 | Outpatient (CLI) | payer MEDICARE, OTHER ==
--- NOTE | 2020-07-16 15:50 | CONSULTATION NOTE ---
Palliative Care Follow Up - Referral Referring Provider: Clarissa MAK Time of Visit: 5968-4355 Referral setting: Home Referral Reason: Rash/Back Pain/Anxiety/left ear lesion - Information Sources Records reviewed: Previous records reviewed History/Review of Systems obtained from: Patient Exam limitations: No limitations - History of Present Illness Update Brief HPI Update: This is an 89-year-old woman with a history of strokes, last stroke was 2013. She does have though ongoing progressive left-sided weakness, known hereditary limb hyperlipidemia with intolerance to statins, and worsening and severe progressing lumbar stenosis with increased left lower numbness and weakness. Patient unfortunately has had increasing pain, and worsening functional status. With weightbearing she is unable to maneuver her left leg, and unable to tolerate standing for more than 30 seconds. She is mostly bedbound and recliner bound. She can walk short distances with her walker, but this is worsening. She is quite fearful so has not been able to get in the shower. I am coming back to follow-up on a growth on the outer left ear. Though it is small, has increased in size, and has increased in redness. It remains somewhat uncomfortable as she sleeps on that side, but there is no bleeding or open areas, is crusting over and a yellow plaque. There was some question whether it was a basal cell carcinoma versus pressure sore, with progression does need follow-up for most likely skin cancer. Other problem is she does have still scattered rash, she has been more focused on getting the skin off, there is some improvement, but still has little blisters that form and dry and essentially fall off. She does have some pruritus with this but not intense. She use the triamcinolone, but was unable to use it consistently given her current situation with her functional decline. Her has tried to help her, he has worsening dementia, so is somewhat challenging in there. Patient has not had any further episodes of hypotension, her blood pressures have been within a fairly good range, she did finally weigh herself and has lost weight she is at 148, her baseline is usually 160. She reports that she is eating, and her appetite is not changed. Her other significant issue is her underlying anxiety, this is been exacerbated by her 's continued and rapidly progressing dementia. They have multiple financial stressors given having to pay for increased caregiving, she is trying to take it a day at a time, she does feel very vulnerable as she is supervising her , thus taking less of her pain medication Past Medical History: Hypertension, hyperlipidemia, pseudobulbar affect, history of 2 strokes, severe spinal stenosis, left-sided weakness, hip fracture, fatigue, hemorrhoids, chronic constipation, anxiety Social History - Living Situation Living arrangement: At home Living Situation: With spouse/s.o. Support System: Patient and her are currently living in their own home, they do have [employer]. 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 She is getting some increased assistance from her family, is trying to minimize caregiving hours, has a shift from 830 to 11 AM, and they come back again at 5 to feed him dinner and settled him in. She remains fairly cognitively intact and able to provide oversight for both of them. Medications/Allergies - Medications Home Medications: Ambulatory Orders Medication Instructions Recorded Confirmed Hydrochlorothiazide 25 mg PO DAILY 05/08/14 06/19/20 HYDROcod/ACETAM 5/325 [Vicodin 1 - 2 ea PO Q4HR PRN MDD 8 tabs 07/18/15 06/19/20 5/325] Losartan Potassium 100 mg PO DAILY 08/08/15 06/19/20 Aspirin [Adult Low Dose Aspirin EC] 81 mg PO BID 01/11/17 06/19/20 Docusate Sodium 3 tab PO QPM 01/11/17 06/19/20 Senna [Senokot] 3 tab PO DAILY PM 01/11/17 06/19/20 Metoprolol Tartrate 25 mg PO BID 04/15/17 06/19/20 Omeprazole 20 mg PO BID 06/22/17 06/19/20 Erythromycin Base [Erythromycin 1 applic EACHEYE DAILY PRN 08/16/17 06/19/20 Ophthalmic Ointment] Cyanocobalamin (Vitamin B-12) 1,000 mcg SL DAILY 09/13/18 06/19/20 [Vitamin B-12 (1000 mcg sublingual)] Ondansetron [Zuplenz] 4 mg PO Q8HR PRN 10/18/19 06/19/20 Triamcinolone 0.1% Oint [Kenalog 1 applic TOP BID PRN 06/19/20 06/19/20 0.1% Oint] - Allergies Allergies/Adverse Reactions: Allergies Allergy/AdvReac Type Severity Reaction Status Date / Time [id number] Reductase AdvReac Severe Unknown Verified 01/11/17 11:20 Inhibitor Review of Systems - Constitutional Constitutional: reports: Fatigue (remains persistent/worsening), Weakness, Weight loss (148). denies: Fever, Chills - Eyes Eyes: reports: Vision loss - Ears, Nose & Throat Ears, Nose & Throat: reports: Hearing loss, Dry mouth - Cardiovascular Cardiovascular: reports: Decr. exercise tolerance. denies: Chest pain - Respiratory Respiratory: denies: SOB at rest - Gastrointestinal Gastrointestinal: reports: Good appetite (needing assist with meal prep). denies: Constipation (controlled) - Genitourinary Genitourinary: reports: Frequency - Musculoskeletal Musculoskeletal: reports: Back pain, Muscle aches, Stiffness, Muscle weakness, Assistive devices (uses rollling walker) - Integumentary Integumentary: reports: Rash, Pruritis, Lesions, Dryness - Neurological Neurological: reports: General weakness, Focal weakness (reports left sided more notable), Numbness (bilaterally continues to progress; left greater than right;), Abnormal gait, Other (no falls) - Psychiatric Psychiatric: reports: Depression, Anxiety - All Other Systems All Other Systems: reports: Reviewed and negative Physical Exam - Vital Signs Temperature: 97.9 C Pulse Rate: 76 Respiratory Rate: 16 O2 Saturation: 97 (ra @ rest) Blood Pressure: 152/90 - Physical Exam General Appearance: positive: Alert, Mild distress, Anxious Eyes Bilateral: positive: Normal inspection ENT: positive: No signs of dehydration, Other (noted voice weaker; hoarseness) Neck: positive: Trachea midline Cardiovascular: positive: Regular rate & rhythm Respiratory: positive: No respiratory distress, Breath sounds nml Abdomen: positive: Non-tender, Soft, Nml bowel sounds Skin: positive: Pallor, Dryness, Pruritis, Rash (faded pink spots over all of body; dried blisters;), Other (left lesion on ear; yellow plaque; reddened edge extends 2cm) Extremities: positive: No pedal edema Neurologic/Psychiatric: positive: Oriented x3, Weakness, Depressed mood/affect Palliative Care - POLST Patient has POLST: Yes POLST Status: DNR, Comfort Measures Pain: Pain worsening, Location (mid back), Severity (severe), Comment (Patient is using high codon 5 mg / 325 mg 4-5 times a day, has been encouraged to increase dosing for better relief and longer coverage, remains quite hesitant in the context of needing to oversee her and her 's care.) Tiredness/Fatigue: Moderate (4-6) Drowsiness/Sedation: Moderate (4-6) (needs daytime nap) Nausea: None Anorexia: None Dyspnea: None Depression: Moderate (4-6) Anxiety: Moderate (4-6) Feelings of wellbeing/Perceived Quality of Life: Fair, Acceptable, Worsening Sleep: Sleeps well Constipation: Yes, Opoid induced, Managed Performance Status: Patient continues with declining functional status, has not been able to shower. She is thinking about allowing the hired assistance to help her with at least a sponge bath, but wants to remain as independent as long as possible. She reports "walking is almost impossible now". Is ambulating out to the recliner in her kitchen, as well as to bathroom. She has not been out of the house for couple years, does have transport wheelchair, in the context of needing to see dermatology. She is having more trouble getting in and out of bed, currently her very frail has been can help lift her feet, but this is becoming more complex - Palliative Care Discussion: Patient's best friend, who she was talking to prior to my arrival, had just gone on hospice she was 89 years old and is stopping dialysis. And reflective on just their current situation. They did get rid of the car as it is too much temptation for her , plus having to be explained multiple times given his dementia. They are barely managing, but she does have people to call if she feels like needs assistance. She is quite pragmatic and taking things as they come, does understand most likely heading to a crisis point, is hoping to hold on for little bit longer. Impression and Recommendations - Palliative Care Impression: This is an 89-year-old woman with history of stroke, residual left-sided weakness, progressive and severe lumbar pain with increasing neuropathic symptoms, declining functional status, and weight loss. Patient now presents with a rash, with little improvement, suspect more related to her hygiene habits, but does have a lesion on her left ear, most likely malignant. Palliative care continue provide support regarding pain and symptom management as well as anticipatory guidance. Recommendations/Counseling Done: 1. Left ear lesion. Discussed the seriousness of this with patient, more than happy to make a referral to dermatology, but would need of course to leave the home. She would like to go to [facility] in [place], she will work with her daughter this weekend, to see if she can do a car transfer. She is very reluctant and worried if she is going to be able to do this. Will make referral to dermatology. 2. Rash. Patient has done better getting all the built-up skin off, but still has scattered lesions over her body, of unknown etiology. Certainly may be exacerbated by stress, has not been consistent in using the triamcinolone, no open areas or lesions. She had been encouraged to shower to decrease the buildup of the rinseless soap, instructed to have her caregiving assistance to help her bathe with soap and water and rinse at least twice a week to get the layers of the rinseless soap, making a referral to dermatology, would be grateful for them to weigh in. 3. Chronic back pain. This is multifactorial in origin, to be most likely regarding lumbar stenosis and continued degenerative disease process patient has refused further work-up, or any changes in her current regimen. She continues to use her Vicodin 4-5 times a day with only moderate pain control, she has been encouraged to use higher doses to get better control but is concerned about remaining hypervigilant to oversee her current situation with her . We will continue to monitor. 4. Hypertension. Remains somewhat elevated, patient is very resistant to any changes, suspect it is more impacted at this point in time by her stress. Encourage continue adequate fluid intake, and check at least 2-3 times a week, and to notify myself/office if having blood pressures greater than 170 and or symptoms. 5. Advanced care planning. Patient he remains quite frail, presenting with weight loss, declining functional status, is at high risk for fall or recurrent stroke. She is quite vulnerable given her current complex social situation, at this point does not want to do any further long-term planning.Family has been more involved than currently monitoring her situation. 45 minutes with greater than 50% of this done in counseling regarding pain and symptom management, addressing anxiety regarding her current complex social situation, processing feelings of grief and loss, and anticipatory guidance
== END 2020-07-16 13:01 | disposition home or self-care (01) ==
LOC: PC 13:00
PROVIDERS: ATTEND Nurse Practitioner Adult Health
DX: Z51.5 Encounter for palliative care (principal); H93.92 Unspecified disorder of left ear; R21 Rash and other nonspecific skin eruption; L29.9 Pruritus, unspecified; M54.9 Dorsalgia, unspecified; G89.29 Other chronic pain; F41.9 Anxiety disorder, unspecified; I10 Essential (primary) hypertension; I69.354 Hemiplegia and hemiparesis following cerebral infarction affecting left non-dominant side; Z66 Do not resuscitate
CPT/HCPCS: 99349

== ENCOUNTER 2020-09-29 14:45 | Outpatient (CLI) | payer MEDICARE, OTHER ==
--- NOTE | 2020-09-29 17:24 | CONSULTATION NOTE ---
Palliative Care Follow Up - Referral Referring Provider: Dr. Pradip Mccarthy Time of Visit: 5036-6429 Referral setting: Home Referral Reason: Acute on Chronic Back Pain/Constipation/HTN - Information Sources Records reviewed: Previous records reviewed History/Review of Systems obtained from: Patient, Family ( Charles present; slept mostly through visit) Exam limitations: No limitations - History of Present Illness Update Brief HPI Update: This is an 89-year-old woman with a known history of strokes, last stroke was 2013. She does have ongoing progressive left-sided weakness, known hereditary hyperlipidemia with intolerance to statins, and worsening and severe progressing lumbar stenosis with increased left lowered numbness and weakness. Patient unfortunately continues with worsening pain, had encouraged her to trial long-acting pain medication previously, she is quite worried about any kind of clouding given that she needs to q. and oversee her 's care, as his dementia continues to worsen. They do have caregivers 5 hours a day, but they are on their own rest of the time. She can ambulate just short distances, this is limited both by weakness and pain, she is quite dependent on her walker to offload some of her discomfort. She has been using hydrocodone 5 mg / 325 mg 4- 5 times a day for several years now, but is feeling like it is becoming intolerable. Last visit she also had rash, most likely attributed to poor bathing practices as she was just using wipes, she has been to the sales account leader, and given some steroid cream which has improved it. They did do a biopsy on her left ear sore on the outside area, that was negative. Though it continues to not be red it is not healed. She still is trying to offload on it. She has been purposefully losing weight, as to be able to improve her mobility, as her can no longer help her in and out of bed. She is down to 143, from 148 on 07/16. She was able to receive Covid shot in her home, both her and her have been vaccinated which gives her some relief. She still has intermittent abdominal distress, despite twice daily omeprazole, and is using intermittent Pepto-Bismol. She is quite anxious given her current situation, and tries to stay in the moment. Past Medical History: Hypertension, hyperlipidemia, pseudobulbar affect, history of 2-3 strokes, severe spinal stenosis, left-sided weakness, hip fracture, fatigue, hemorrhoids, chronic constipation, anxiety, depression Social History - Living Situation Living arrangement: At home Living Situation: With spouse/s.o. Support System: Patient and her are currently living in their own home, they have obtained [employer]. Her has been having deterioration with his Alzheimer's, is being serviced by [employer], and does have a permanent catheter that is challenging for both of them to manage. She currently has 5 hours daily, they are barely managing as far supporting each ot her. She remains fairly cognitively intact and is able to provide oversight for both of them, but is having more physical challenges and is worried about long- term planning. They currently do have caregivers that are so far working out, there has been some turnover with this. She does have some family, that do intermittently check on them, but would not be able to take on primary caregiving duties. Medications/Allergies - Medications Home Medications: Ambulatory Orders Medication Instructions Recorded Confirmed Hydrochlorothiazide 25 mg PO DAILY 05/08/14 09/29/20 HYDROcod/ACETAM 5/325 [Vicodin 1 - 2 ea PO Q4HR PRN MDD 8 tabs 07/18/15 09/29/20 5/325] Losartan Potassium 100 mg PO DAILY 08/08/15 09/29/20 Aspirin [Adult Low Dose Aspirin EC] 81 mg PO BID 01/11/17 09/29/20 Docusate Sodium 2 tab PO QPM 01/11/17 09/29/20 Senna [Senokot] 4 tab PO DAILY PM 01/11/17 09/29/20 Metoprolol Tartrate 25 mg PO BID 04/15/17 09/29/20 Omeprazole 20 mg PO BID 06/22/17 09/29/20 Erythromycin Base [Erythromycin 1 applic EACHEYE DAILY PRN 08/16/17 09/29/20 Ophthalmic Ointment] Triamcinolone 0.1% Oint [Kenalog 1 applic TOP BID PRN 06/19/20 09/29/20 0.1% Oint] Bismuth Subsalicylate 2 tab PO BID PRN 09/29/20 09/29/20 [Pepto-Bismol] Methadone [Methadone Hcl] 2.5 mg PO QPM MDD x 1 week; then 09/29/20 09/29/20 increase to BID - Allergies Allergies/Adverse Reactions: Allergies Allergy/AdvReac Type Severity Reaction Status Date / Time [id number]-[id number]-Fpl Reductase AdvReac Severe Unknown Verified 01/11/17 11:20 Inhibitor Review of Systems - Constitutional Constitutional: reports: Fatigue (persistent), Weakness, Weight loss (143 purposeful). denies: Fever, Chills - Eyes Eyes: reports: Vision loss - Ears, Nose & Throat Ears, Nose & Throat: reports: Hearing loss, Dry mouth - Cardiovascular Cardiovascular: reports: Decr. exercise tolerance. denies: Chest pain - Respiratory Respiratory: denies: SOB at rest - Gastrointestinal Gastrointestinal: reports: Reflux/heartburn (with eating; using Pepto bismal at times after meals), Good appetite (needing assist with meal prep). denies: Constipation (controlled) - Genitourinary Genitourinary: reports: Frequency - Musculoskeletal Musculoskeletal: reports: Back pain, Muscle aches, Stiffness, Muscle weakness, Assistive devices (uses rollling walker) - Integumentary Integumentary: reports: Rash (improved), Pruritis, Lesions (fading), Dryness, Other (lesion on left ear) - Neurological Neurological: reports: General weakness, Focal weakness (reports left sided more notable), Numbness (bilaterally continues to progress; left greater than right;), Abnormal gait, Other (no falls) - Psychiatric Psychiatric: reports: Depression, Anxiety - All Other Systems All Other Systems: reports: Reviewed and negative Physical Exam - Vital Signs Temperature: 97.9 C Pulse Rate: 71 Respiratory Rate: 18 O2 Saturation: 97 (ra @ rest) Blood Pressure: 140/80 - Physical Exam General Appearance: positive: Alert, Mild distress, Anxious Eyes Bilateral: positive: Normal inspection ENT: positive: No signs of dehydration Neck: positive: Trachea midline Cardiovascular: positive: Regular rate & rhythm Respiratory: positive: No respiratory distress, Breath sounds nml Abdomen: positive: Non-tender, Soft, Nml bowel sounds Skin: positive: Pallor, Dryness, Pruritis, Rash (faded pink spots over all of body; dried blisters;), Other (left lesion on ear; dried eschar from biopsy; redness improved) Extremities: positive: No pedal edema Neurologic/Psychiatric: positive: Oriented x3, Weakness, Depressed mood/affect Palliative Care - POLST Patient has POLST: Yes POLST Status: DNR, Comfort Measures Pain: Pain worsening, Location Tiredness/Fatigue: Moderate (4-6) Drowsiness/Sedation: None Nausea: Mild (1-3) (uses pepto bismal) Anorexia: Mild (1-3), Weight loss Dyspnea: None Depression: Mild (1-3) Anxiety: Moderate (4-6) (given current situation with caregiving and worsening pain) Feelings of wellbeing/Perceived Quality of Life: Fair, Worsening Sleep: Variable sleep pattern Constipation: Yes, Opoid induced, Intermittent constipation (currently susng 2 LEIDA; 4 Senokot; 3 prunies) Performance Status: Patient is very fearful of falling, has difficulty stepping over the step for her bathing. She has allowed caregivers to help her with bed baths, she has been working on scrubbing of the skin, her rash and skin condition looks much better. She is able to ambulate short distances, including to the bathroom, but has difficulty getting in and out of bed given her back pain and left-sided weakness. She can feed herself, she does have caregivers preparing food and meals. - Palliative Care Discussion: Patient continues to have significant stressors, particularly related to her and his worsening dementia. She reports they are taking things just the day to time, have increased the caregiving, but only to 5 hours daily. She does understand that this is most likely going to deteriorate, she is hoping to be able to manage as long as possible with her current support. She is quite pragmatic in taking things as they come. Patient continues to perseverate on giving a terminal diagnosis several years ago, but does recognize that she is declining, and is concerned about her worsening pain and being able to continue. She does have a POLST with DNR and DNI. She was working on updating her DPOA, and this has been completed with her daughter Mahi COLLINS [phone]. Impression and Recommendations - Palliative Care Impression: This is an 89-year-old woman with a history of stroke, residual left-sided weakness, progressive and severe lumbar pain with increasing neuropathic symptoms, declining functional status and open now to trialing alternative pain medication. Patient's rash has improved, lesion on left ear has not healed but improved. Palliative care continue provide support for pain and symptom management as well as anticipatory guidance Recommendations/Counseling Done: 1. Chronic back pain. This is multifactorial in origin, attributed to lumbar stenosis and continued degenerative disease process. Patient is refused further work-up or her up to this point changes in her current regimen. She has been u sing her Hydrocodone 5 mg - 325 mg 4 to 5 times a day, with poor control. Patient's biggest fear is increased clouding and she is needing to supervise her and oversee their care, we discussed multiple options, including time- released morphine, fentanyl patch, and methadone. Patient would like to trial methadone, given her anxiety, will start at low dose 2.5 mg in the evening for 1 week and increase to twice daily, with regular check-in's. Patient has been instructed for long-acting to use the methadone, and continue to take her Vicodin for short acting as she needs it, written instructions as well as patient verbalized understanding. 2. Left ear lesion. Patient did get to the sales account leader, still has lesion there but not red and angry. She still has pressure on her ear they did not think it was more than a pressure point. Biopsy site with eschar, it is still quite tender, instructed to use Cavilon barrier cream versus Neosporin for ear for protection and change to protect against shearing. Encouraged to continue pressure relief. 3. Rash. Patient has been able to do better with getting skin off, legs are looking good. She is quite concerned about doing bathing in the shower. She is continue to use rinse the soap but is doing better with cleaning it off. Rash is almost all resolved. 4. Hypertension, patient's blood pressures have been running 140s, I suspect this is as good as is going to get, patient quite resistant to making any other kinds of changes. She does check it 2-3 times a week and knows to notify if they remain persistently high over 170 and/or symptoms. She is quite sensitive to stressors and anxiety, as far as increased blood pressure. 5. Advanced care planning patient's biggest stressor is her , he remains quite frail, with worsening dementia. She remains quite at risk for fall or recurrent stroke. She is quite vulnerable given her current complex social situation, but feels they are currently managing. Family has been more involved and currently monitoring situation, she has increased caregiving support will continue to monitor. 60 minutes with greater than 50% of this done in counseling regarding pain re gimen, risks and benefits of methadone, written instructions provided, as well as evaluation of current situation and anticipatory guidance provided
== END 2020-09-29 14:46 | disposition home or self-care (01) ==
LOC: PC 14:45
PROVIDERS: ATTEND Nurse Practitioner Adult Health
DX: Z51.5 Encounter for palliative care (principal); M48.061 Spinal stenosis, lumbar region without neurogenic claudication; M54.5 Low back pain; H93.8X2 Other specified disorders of left ear; R21 Rash and other nonspecific skin eruption; I10 Essential (primary) hypertension; Z66 Do not resuscitate
CPT/HCPCS: 99350

== ENCOUNTER 2020-12-15 14:00 | Outpatient (CLI) | payer MEDICARE, OTHER ==
--- NOTE | 2020-12-15 15:32 | CONSULTATION NOTE ---
Palliative Care Follow Up - Referral Referring Provider: Dr. Lay Eaton ([facility]) Time of Visit: 9413-3400 Referral setting: Home Referral Reason: Acute on Chronic Back Pain/Left sided weakness - Information Sources Records reviewed: Previous records reviewed History/Review of Systems obtained from: Patient Exam limitations: No limitations - History of Present Illness Update Brief HPI Update: This is an 89-year-old woman with known history of strokes, last stroke was 2013. She has ongoing progressive left-sided weakness, known hereditary hyperlipidemia with intolerance to statins, and worsening and severe progressing lumbar stenosis with increased left lower numbness and weakness. She reports she has had an exacerbation of her pain in this last week, with decreasing mobility status, and increased use of her hydrocodone 5 mg / 325 mg, she is using 6-8 tabs a day, we had trialed some methadone with actually good control, but she did get some dizziness and got anxious and stopped it. Patient's who has dementia, and is quite frail, recently spent a week in the hospital, he is doing better. He is very hard of hearing which makes it difficult in the home. She does have to oversee and cue him for most things. Her biggest worry at this point in time is they have had trouble finding caregivers, she feels like she is "slowed down a lot", and is starting to worry a little bit about the future, particular if she becomes wheelchair-bound. Past Medical History: Hypertension, hyperlipidemia, pseudobulbar affect, history of 2-3 strokes, severe spinal stenosis, left-sided weakness, history of hip fracture, fatigue, hemorrhoids, chronic constipation, anxiety, and depression Social History - Living Situation Living arrangement: At home Living Situation: With spouse/s.o. Support System: Patient lives at home with her , they have [employer]. Her is have deterioration with his dementia, he does have support through [facility] and has a permanent catheter which is challenging for both of them to manage. They do have care from 01 12-04 14 and from -, she has accepted help with showering, they do housekeeping and meals. There has been quite a bit of turnover, she is someone who is managing and overseeing caregivers. She does have a daughter who is a full-time trolley cleaner, that comes with her and help with household support, her other daughter has a history of strokes and is not available, none of her family would be able to take on primary caregiving. Medications/Allergies - Medications Home Medications: Ambulatory Orders Medication Instructions Recorded Confirmed hydroCHLOROthiazide 25 mg PO DAILY 05/08/14 12/15/20 [Hydrochlorothiazide] HYDROcod/ACETAM 5/325 [Vicodin 1 - 2 ea PO Q4HR PRN MDD 8 tabs 07/18/15 12/15/20 5/325] Losartan Potassium 100 mg PO DAILY 08/08/15 12/15/20 Aspirin [Adult Low Dose Aspirin EC] 81 mg PO BID 01/11/17 12/15/20 Docusate Sodium 2 tab PO QPM 01/11/17 12/15/20 Senna [Senokot] 4 tab PO DAILY PM 01/11/17 12/15/20 Metoprolol Tartrate 25 mg PO BID 04/15/17 12/15/20 Omeprazole 20 mg PO BID 06/22/17 12/15/20 Erythromycin Base [Erythromycin 1 applic EACHEYE DAILY PRN 08/16/17 12/15/20 Ophthalmic Ointment] Triamcinolone 0.1% Oint [Kenalog 1 applic TOP BID PRN 06/19/20 12/15/20 0.1% Oint] Bismuth Subsalicylate 2 tab PO BID PRN 09/29/20 12/15/20 [Pepto-Bismol] - Allergies Allergies/Adverse Reactions: Allergies Allergy/AdvReac Type Severity Reaction Status Date / Time [id number]-[id number]-Mtg Reductase AdvReac Severe Unknown Verified 01/11/17 11:20 Inhibitor Review of Systems - Constitutional Constitutional: reports: Fatigue (persistent), Weakness (worsening left side), Weight loss (145 staying stable). denies: Fever, Chills - Eyes Eyes: reports: Vision loss - Ears, Nose & Throat Ears, Nose & Throat: reports: Hearing loss, Dry mouth - Cardiovascular Cardiovascular: reports: Decr. exercise tolerance. denies: Chest pain - Respiratory Respiratory: reports: SOB with exertion. denies: SOB at rest - Gastrointestinal Gastrointestinal: reports: Reflux/heartburn (with eating; using Pepto bismal at times after meals), Early satiety. denies: Constipation (controlled) - Genitourinary Genitourinary: reports: Frequency. denies: Incontinence - Musculoskeletal Musculoskeletal: reports: Back pain (escalating; feels "compression"), Muscle aches, Stiffness, Muscle weakness, Assistive devices (uses rollling walker) - Integumentary Integumentary: reports: Rash (improved), Pruritis, Lesions (fading), Dryness - Neurological Neurological: reports: General weakness, Focal weakness (reports left sided more notable), Numbness (bilaterally continues to progress; left greater than right;), Abnormal gait, Other (no falls) - Psychiatric Psychiatric: reports: Depression, Anxiety - All Other Systems All Other Systems: reports: Reviewed and negative Physical Exam - Vital Signs Temperature: 97.0 C Pulse Rate: 71 Respiratory Rate: 18 Blood Pressure: 149/86 - Physical Exam General Appearance: positive: Alert, Mild distress, Anxious (about her worsening status and husbands health), Other (appears pale and fatigued) Eyes Bilateral: positive: Normal inspection, Other (periorbital edema) ENT: positive: No signs of dehydration Neck: positive: Trachea midline Cardiovascular: positive: Regular rate & rhythm Respiratory: positive: No respiratory distress, Breath sounds nml Abdomen: positive: Non-tender, Soft, Nml bowel sounds Skin: positive: Pallor, Dryness, Pruritis, Rash (faded pink spots over all of body; dried blisters;) Extremities: positive: No pedal edema Neurologic/Psychiatric: positive: Oriented x3, Weakness, Depressed mood/affect Palliative Care - POLST Patient has POLST: Yes POLST Status: DNR, Comfort Measures Pain: Pain worsening, Severity (severe), Comment (using 6-8 vicodin daily) Tiredness/Fatigue: Moderate (4-6) Drowsiness/Sedation: Mild (1-3) Nausea: None Anorexia: None Dyspnea: None Depression: Mild (1-3) Anxiety: Moderate (4-6) Feelings of wellbeing/Perceived Quality of Life: Fair, Acceptable, No change Constipation: Yes, Opoid induced, Intermittent constipation Performance Status: Patient is more sedentary, spending more time in bed, she is ambulatory with her rolling walker, but finds the pain worsening. She has a horrible fear of falling, difficulty standing up. Her left leg is "not working" has difficulty being able to lift this. She did allow caregiver to help her in the shower, they were able to manage. She has lots of grab bars, but is worried about in the future being wheelchair dependent - Palliative Care Discussion: Patient reports that she is taking things just a day at a time, her goal is to stay in their own home. They are needing daily caregiving, which is very expensive. She is worried and wondering about when she is no longer able to walk, and particularly needing wheelchair for mobility. This most likely would result in increased caregiving hours needed: Counseling provided regarding the role of assisted living versus SNF. They do have a very thick carpet, so would be concern for mobility with the wheelchair. She is wanting to stay clear, so is unwilling to trial another pain regimen different than what she is doing. She is very nervous about her , to stay vigilant secondary to his dementia. She reports she has slowed down a lot, particularly last couple weeks Impression and Recommendations - Palliative Care Impression: This is an 89-year-old woman with history of strokes, residual left-sided weakness, progressive and severe lumbar pain with increasing neuropathic symptoms. She is having decline in functional status, did not do very well trialing methadone, though had improved her pain. Patient's rash and lesion on left ear has healed. Palliative care continue provide support for pain and symptom management as well as anticipatory guidance Recommendations/Counseling Done: 1. Chronic pain. This is multifactorial in origin, attributed mostly to her lumbar stenosis and continued degenerative disease process. Patient has refused further work-up for this, we did trial methadone she was quite fearful of sedation clouding. She is continuing with the Vicodin, using 6-8 tabs a day. S he would most likely do better on a long-acting, but continues to be somewhat attached to her current regimen. 2. Left ear lesion. This is since healed, she is not using her pillow as she did not like it, she is turning on the other side with decreased pressure. 3. Rash. Patient has been doing better with hygiene, was able to shower with caregiver. At this point in time rash is resolved. 4. Hypertension. Patient's blood pressures are in good range, she does check it 2-3 times a week, she is able to call if she has increased symptoms or persistently high. She is quite sensitive to stressors and anxiety as far as translating and her blood pressure. We will continue to monitor. 5. Advanced care planning. Patient's biggest stressor is her remains quite frail with worsening dementia. She remains at high risk for fall or recurrent stroke, and quite vulnerable given her current complex social situation. She likes to be well positive, feels like they are currently neena ging, but is expressing concerns regarding finding caregiving support, and also thinking to the future as her functional status declines. Counseling provided regarding the spectrum of care, suspect will need to be in a crisis before further decision or transitions are made 60 minutes with greater than 50% of this done in counseling regarding pain and symptom management, anticipatory guidance, review of continuum of care.
== END 2020-12-15 14:01 | disposition home or self-care (01) ==
LOC: PC 14:00
PROVIDERS: ATTEND Nurse Practitioner Adult Health
DX: Z51.5 Encounter for palliative care (principal); M54.5 Low back pain; G89.29 Other chronic pain; I10 Essential (primary) hypertension; I69.354 Hemiplegia and hemiparesis following cerebral infarction affecting left non-dominant side; Z79.891 Long term (current) use of opiate analgesic; Z66 Do not resuscitate
CPT/HCPCS: 99350

== ENCOUNTER 2021-04-20 15:00 | Outpatient (CLI) | payer MEDICARE, OTHER ==
--- NOTE | 2021-04-20 17:09 | CONSULTATION NOTE ---
Palliative Care Follow Up - Referral Referring Provider: Dr. Lay Eaton Time of Visit: 2297-2215 Referral setting: Home Referral Reason: Chronic Back Pain/Left Sided Weakness/Anxiety/RLS - Information Sources Records reviewed: Previous records reviewed History/Review of Systems obtained from: Patient Exam limitations: Clinical condition (mild STM issues) - History of Present Illness Update Brief HPI Update: This is an 89-year-old woman with known history of strokes with last documented stroke 2013, she has ongoing progressive left-sided weakness, known hereditary hyperlipidemia with intolerance to statins, and worsening and severe progressing lumbar stenosis with increased left lower numbness and weakness. She has had decreasing mobility status, is able to ambulate short distances with her rolling walker, but this acutely increases her pain with weightbearing. She has been using hydrocodone 5/325 mg, she is using 6-8 tabs a day, is uninterested in trialing other medications though she did have a good response to methadone but got anxious and stopped it secondary to perceived dizziness. She is complaining at nighttime of what sounds like restless leg syndrome, is interested in trialing a medication to see if this can be improved. She is also not sleeping well, as has had some nighttime wakefulness. Patient is feeling somewhat anxious and overwrought, her with dementia continues to worsen. He is coming on palliative care services to help provide more support and clarify goals of care. He has had frequent hospitalizations, she is unable to participate much because of her homebound status and he remains high risk for rehospitalization again.She does depend on the caregiver score quite a bit of support both physically and emotionally, as well as the home health RN Dixie nolasco Charles, she calls frequently to problem solve around the catheter.. Past Medical History: Hypertension, hyperlipidemia, pseudobulbar affect, history of 2-3 strokes, severe spinal stenosis, left-sided weakness, history of hip fracture, fatigue, hemorrhoids, chronic constipation, anxiety and depression Social History - Living Situation Living arrangement: At home Living Situation: With spouse/s.o. Support System: Patient lives at home with her , they have been for 48 years. They do have [employer]. Her has had continued deterioration in his dementia, he has support to [place] [facility] and a permanent catheter which is challenging for both of them to manage. They do have caregiving for several hours each day, she is finally excepted some help with bathing. They do do housekeeping and meals, as well as medications. She has had quite a bit of turnover with caregivers, but reports currently she has a stable group she is happy with. She does have a daughter who is a full-time tank shop supervisor that comes with her occasionally as well as a daughter with a history of strokes and is not available for support. She and her are hoping to be able to stay in their home till end-of-life. Medications/Allergies - Medications Home Medications: Ambulatory Orders Medication Instructions Recorded Confirmed hydroCHLOROthiazide 25 mg PO DAILY 05/08/14 04/21/21 [Hydrochlorothiazide] HYDROcod/ACETAM 5/325 [Vicodin 1 - 2 ea PO Q4HR PRN MDD 8 tabs 07/18/15 04/21/21 5/325] Losartan Potassium 100 mg PO DAILY 08/08/15 04/21/21 Aspirin [Adult Low Dose Aspirin EC] 81 mg PO BID 01/11/17 04/21/21 Docusate Sodium 2 tab PO QPM 01/11/17 04/21/21 Senna [Senokot] 3 - 4 tab PO DAILY PM 01/11/17 04/21/21 Metoprolol Tartrate 25 mg PO BID 04/15/17 04/21/21 Omeprazole 20 mg PO DAILY PRN 06/22/17 04/21/21 Erythromycin Base [Erythromycin 1 applic EACHEYE DAILY PRN 08/16/17 04/21/21 Ophthalmic Ointment] Triamcinolone 0.1% Oint [Kenalog 1 applic TOP BID PRN 06/19/20 04/21/21 0.1% Oint] Bismuth Subsalicylate 2 tab PO BID PRN 09/29/20 04/21/21 [Pepto-Bismol] Pramipexole Di-HCl [Mirapex] 0.125 mg PO QPM MDD may titrte to 04/21/21 04/21/21 2-3 tabs - Allergies Allergies/Adverse Reactions: Allergies Allergy/AdvReac Type Severity Reaction Status Date / Time [id number]-[id number]-MeK Reductase AdvReac Severe Unknown Verified 01/11/17 11:20 Inhibitor [Wybxmug-Psk-Dwx Reductase Inhibitor] Review of Systems - Constitutional Constitutional: reports: Fatigue (persistent), Weakness (worsening left side; difficulty lifting left leg; helps her get in bed at night), Weight loss (145 staying stable). denies: Fever, Chills - Eyes Eyes: reports: Vision loss - Ears, Nose & Throat Ears, Nose & Throat: reports: Hearing loss, Dry mouth - Cardiovascular Cardiovascular: reports: Exertional dyspnea, Decr. exercise tolerance. denies: Chest pain - Respiratory Respiratory: reports: SOB with exertion. denies: SOB at rest - Gastrointestinal Gastrointestinal: reports: Reflux/heartburn (with eating; using Pepto bismal at times after meals), Early satiety. denies: Constipation (controlled) - Genitourinary Genitourinary: reports: Frequency. denies: Incontinence - Musculoskeletal Musculoskeletal: reports: Back pain (escalating; feels "compression"), Muscle aches, Stiffness, Muscle weakness, Assistive devices (uses rollling walker) - Integumentary Integumentary: reports: Rash (improved), Pruritis, Lesions (fading), Dryness - Neurological Neurological: reports: General weakness, Focal weakness (reports left sided more notable), Numbness (bilaterally continues to progress; left greater than right;), Abnormal gait, Other (no falls) - Psychiatric Psychiatric: reports: Depression, Anxiety - All Other Systems All Other Systems: reports: Reviewed and negative Physical Exam - Vital Signs Temperature: 97.2 C Pulse Rate: 73 Respiratory Rate: 18 O2 Saturation: 97 Blood Pressure: 128/72 - Physical Exam General Appearance: positive: Alert, Mild distress, Anxious (about her worsening status and husbands health; feeling exhausted), Other (appears pale and fatigued) Eyes Bilateral: positive: Normal inspection, Other (periorbital edema) ENT: positive: No signs of dehydration Neck: positive: Trachea midline Cardiovascular: positive: Regular rate & rhythm Respiratory: positive: No respiratory distress, Breath sounds nml Abdomen: positive: Non-tender, Soft, Nml bowel sounds Skin: positive: Pallor, Dryness, Pruritis, Rash (faded pink spots over all of body; dried blisters; improved) Extremities: positive: No pedal edema Neurologic/Psychiatric: positive: Oriented x3, Weakness, Depressed mood/affect Palliative Care - POLST Patient has POLST: Yes POLST Status: DNR, Comfort Measures Pain: Pain worsening, Location (back and left leg), Severity (8/10), Pattern (worst with weight bearing) Tiredness/Fatigue: Severe (7-10) Drowsiness/Sedation: Mild (1-3) Nausea: None Anorexia: Mild (1-3), Weight loss (attributes to poor cooking support) Dyspnea: Mild (1-3) Depression: Mild (1-3) Anxiety: Severe (7-10) Feelings of wellbeing/Perceived Quality of Life: Poor, Worsening Sleep: Variable sleep pattern (awakened by ) Constipation: Yes, Opoid induced, Intermittent constipation Performance Status: Patient is barely ambulatory with a rolling walker, she can get to the bathroom for short distances. She is needing more assistance with ADLs, spends most of her time in her recliner or in bed. She is having increased pain so sometimes difficult getting out of bed until she has had her pain medication. She does perceive herself as declining functionally - Palliative Care Discussion: Patient does appear quite anxious, she is having more trouble with her and his dementia. She feels like she has to be "on" all the time, feels both emotionally and physically exhausted. Though when introduced possibility of getting more help or placement in assisted living, she is quite resistant. She currently likes her caregiver she has, is worried about long-term how their fi nances are going to hold up. She is having more difficulty with memory, she continues to slow down and present with higher symptom burden. Patient does have a POLST in place with DN AR and comfort care. Impression and Recommendations - Palliative Care Impression: This is an 89-year-old woman with a history of strokes, residual left-sided weakness, progressive and severe lumbar pain with increasing neuropathic symptoms with left leg weakness and numbness. She is having a decline in functional status as well as cognitive. She presents today with also complaints of restless leg. Palliative care continue provide support for pain and symptom management as well as anticipatory guidance Recommendations/Counseling Done: 1. Chronic pain. This is multifactorial in origin, attributed mostly to her lumbar stenosis and continued degenerative disc disease process. Patient continues to refuse further work-up or intervention for this. We did do a trial of methadone with good response but was quite fearful of sedation or clouding. She has continued with her Vicodin using 6-8 tabs a day. She would likely do better on long-acting but continues to be somewhat attached to her current regimen. Prescriptions provided. 2. RLS. Patient describes a nighttime difficulty with restless legs, difficu lty settling down. This is exacerbated by poor sleep secondary to her 's wakefulness at night. We will go ahead and try small dose secondary to patient's medication sensitivities of Mirapex 0.125 mg at bedtime, reviewed again this is a small dose, if ineffective can titrate to effect. Patient verbalized understanding. 3. Hypertension. Patient's blood pressures remain in good range, she does check it 2-3 times a week. She is quite sensitive to stressors and anxiety, and has had multiple both emotional and physical stressors. Today her blood pressure is fine at 128/72. 4. Advanced care planning. Patient's biggest stressor still is her he remains quite frail with worsening dementia, multiple hospitalizations and currently being admitted to palliative care consult service. She remains at high risk for fall or recurrent stroke, is quite vulnerable given her current complex social situation. She does appear quite fatigued, she usually tries to stay quite positive. There goals both her and her patients are able to express that they want to stay at home as long as possible, she does understand is getting more difficult. She is currently pleased with her caregivers but still only has 5 to 8 hours a day. Again expressed my concerns for having a follow-up plan if one of them is unable to hold each other up. She is open to having the medical palliative care social service coordinator juan luis, Giulia they have had relationship with her in the past. 45 minutes with greater 50% of this done in counseling regarding pain and symptom management, support for her ongoing anxiety and stressors, as well as anticipatory guidance.
== END 2021-04-20 15:01 | disposition home or self-care (01) ==
LOC: PC 15:00
PROVIDERS: ATTEND Nurse Practitioner Adult Health
DX: Z51.5 Encounter for palliative care (principal); G89.29 Other chronic pain; M48.061 Spinal stenosis, lumbar region without neurogenic claudication; M51.36 Other intervertebral disc degeneration, lumbar region; G25.81 Restless legs syndrome; I10 Essential (primary) hypertension; Z66 Do not resuscitate; F41.9 Anxiety disorder, unspecified; K59.03 Drug induced constipation
CPT/HCPCS: 99349

== ENCOUNTER 2021-06-04 08:00 | Outpatient (CLI) | payer MEDICARE, OTHER | END 2021-06-04 23:59 | LOC: LAB.R 08:00 | PROVIDERS: ATTEND Nurse Practitioner Adult Health | DX: U07.1 COVID-19 (principal) ==

== ENCOUNTER 2021-06-10 12:45 | Outpatient (CLI) | payer MEDICARE, OTHER ==
--- NOTE | 2021-06-10 14:02 | CONSULTATION NOTE ---
Palliative Care Follow Up - Referral Referring Provider: Dr. Lay Eaton Time of Visit: [id number] Referral setting: Home Referral Reason: Chronic BAck Pain/Left sided weakness/Anxiety - Information Sources Records reviewed: Previous records reviewed History/Review of Systems obtained from: Patient Exam limitations: Clinical condition (mild STM deficits) - History of Present Illness Update Brief HPI Update: This is a 89-year-old woman with known history of strokes, with last documented stroke 2013. She reports ongoing progressive left-sided weakness, known hereditary hyperlipidemia with intolerance to statins, worsening and severe progressing lumbar stenosis with increased left lower leg numbness and weakness. She has had decreasing mobility status, and is mostly sedentary and bedbound currently. Though she is able to ambulate out to her recliner at least daily. She is managed with hydrocodone 5/325 mg, she is using about 6-8 tabs a day, she does not want to try any other medications, she feels like she needs to remain clear as she oversees her 's care who has dementia.She does appear juan carlos ewhat thinner, is unable to weigh at this time secondary to balance. She has been entertaining the thought of transition to assisted living given her 's most recent hospitalization, and given concerns about both of them in the home, and APS referral was made by home health. She reports a pending appointment this Tuesday. Patient when went to [facility], had tested positive for Covid. He only had a mild cough previous to his admit. Patient reports she is feeling okay, no cough, taste changes, respiratory issues, and had another home test that was negative yesterday. She had also had a PCR earlier in the week that was negative.They have somewhat skeletal crew of care, with caregivers 8 30-11 30 am , 5-7pm, and this is 7 days a week. She reports escalating pain, anxiety, and some persistent depression. She tries to put on a brave front, but is having difficulty managing all this at age 89. Past Medical History: Hypertension, hyperlipidemia, pseudobulbar affect, history of 2-3 strokes, severe spinal stenosis, left-sided weakness, history of hip fracture, fatigue, hemorrhoids, chronic constipation, anxiety, depression Social History - Living Situation Living arrangement: At home Living Situation: With spouse/s.o. Support System: Patient's spouse Charles, has dementia, and it has been complicated as he has started more behaviors, particularly at night. This is exacerbated by the fact he has a Perdue catheter. She feels like she has to supervise him and watch him, was very frightened the other night as he had "put it codon" and thinking he was going to start wandering. She reports the last 2 nights with the medications he has been better, is feeling a little more confident that they can eat this out a little bit further. But is willing to look at placement issues. They have are very "in love" ahead and have been dependent on each other for many a year. They do have caregivers, and feels like at this point in time they are managing. Though she is talking with social workers about other options. Charles and patient have been for 48 years, she does have children but are not actively involved in their care. Medications/Allergies - Medications Home Medications: Ambulatory Orders Medication Instructions Recorded Confirmed hydroCHLOROthiazide 25 mg PO DAILY 05/08/14 06/10/21 [Hydrochlorothiazide] HYDROcod/ACETAM 5/325 [Vicodin 1 - 2 ea PO Q4HR PRN MDD 8 tabs 07/18/15 06/10/21 5/325] Losartan Potassium 100 mg PO DAILY 08/08/15 06/10/21 Aspirin [Adult Low Dose Aspirin EC] 81 mg PO BID 01/11/17 06/10/21 Docusate Sodium 2 tab PO QPM 01/11/17 06/10/21 Senna [Senokot] 3 - 4 tab PO DAILY PM 01/11/17 06/10/21 Metoprolol Tartrate 25 mg PO BID 04/15/17 06/10/21 Omeprazole 20 mg PO DAILY PRN 06/22/17 06/10/21 Erythromycin Base [Erythromycin 1 applic EACHEYE DAILY PRN 08/16/17 06/10/21 Ophthalmic Ointment] Triamcinolone 0.1% Oint [Kenalog 1 applic TOP BID PRN 06/19/20 06/10/21 0.1% Oint] Bismuth Subsalicylate 2 tab PO BID PRN 09/29/20 06/10/21 [Pepto-Bismol] - Allergies Allergies/Adverse Reactions: Allergies Allergy/AdvReac Type Severity Reaction Status Date / Time Tzfgpik-JGB-TvW Reductase AdvReac Severe Unknown Verified 01/11/17 11:20 Inhibitor [Lecoezc-Yxw-Soh Reductase Inhibitor] Review of Systems - Constitutional Constitutional: reports: Fatigue (persistent), Weakness (worsening left side; difficulty lifting left leg; spending more time in bed), Weight loss (145 staying stable). denies: Fever, Chills - Eyes Eyes: reports: Vision loss - Ears, Nose & Throat Ears, Nose & Throat: reports: Hearing loss, Dry mouth - Cardiovascular Cardiovascular: reports: Exertional dyspnea, Decr. exercise tolerance. denies: Chest pain - Respiratory Respiratory: reports: SOB with exertion. denies: SOB at rest - Gastrointestinal Gastrointestinal: reports: Reflux/heartburn (with eating; using Pepto bismal at times after meals about 2 x a week; reports none of her caregivers are good cooks), Early satiety. denies: Constipation (controlled) - Genitourinary Genitourinary: reports: Frequency. denies: Incontinence - Musculoskeletal Musculoskeletal: reports: Back pain (escalating; feels "compression"), Muscle aches, Stiffness, Muscle weakness, Assistive devices (uses rollling walker) - Integumentary Integumentary: reports: Rash (improved), Pruritis, Lesions (fading), Dryness - Neurological Neurological: reports: General weakness, Focal weakness (reports left sided more notable), Numbness (bilaterally continues to progress; left greater than right;), Abnormal gait, Other (no falls) - Psychiatric Psychiatric: reports: Depression, Anxiety - Hematologic/Lymphatic Hematologic/Lymph: denies: Recurrent infections - All Other Systems All Other Systems: reports: Reviewed and negative Physical Exam - Vital Signs Temperature: 97.7 C Pulse Rate: 66 Respiratory Rate: 18 O2 Saturation: 97 (ra @ rest) Blood Pressure: 122/71 - Physical Exam General Appearance: positive: Alert, Mild distress, Anxious (about her worsening status and husbands health; feeling exhausted), Other (appears pale and fatigued) Eyes Bilateral: positive: Normal inspection, Other (periorbital edema) ENT: positive: No signs of dehydration Neck: positive: Trachea midline Cardiovascular: positive: Regular rate & rhythm Respiratory: positive: No respiratory distress Abdomen: positive: Non-tender, Soft, Nml bowel sounds Skin: positive: Pallor, Dryness, Pruritis Extremities: positive: No pedal edema Neurologic/Psychiatric: positive: Oriented x3, Weakness, Depressed mood/affect Palliative Care - POLST Patient has POLST: Yes POLST Status: DNR, Comfort Measures Pain: Pain worsening, Location (lower back; tends to undermedicate to stay clear to help with caregiing oversight) Nausea: Moderate (4-6) Dyspnea: Mild (1-3) Depression: Moderate (4-6) Anxiety: Moderate (4-6) Feelings of wellbeing/Perceived Quality of Life: Fair, Acceptable, Worsening Sleep: Variable sleep pattern (depends on husbands activities at night; ) Constipation: Yes, Opoid induced, Managed Performance Status: Patient feels her functional status has continued decline, did find her and her in bed. Reports that they are getting up later than later. They do go out to the living room and sit/sleep in the recliner. They both have back pain. Patient is excepting bathing assistance from caregivers now.Does need some help getting in and out of bed. - Palliative Care Discussion: Patient's is very dependent on , both emotionally and physically. She does oversee his care and directs him. She is feeling quite anxious, does recognize his decline and need for a better plan. Reports she is just taking a sedated time. She reports she is "in ostrich with her head in the sand" but recognizing that she needs to be realistic as well. She does understand that they are going to need placement in the near future, and his may be memory care. She does try not to get too discouraged with this to stay positive. This is always been her way of coping. She does have a POLST in place with DN AR/DNI and comfort measures. She does feel like she may have a pending stroke, this comes from feeling like when she turns her head to the right, she is more dizzy. She is very concerned about a catastrophic stroke or a stroke that forces them into an living situation they are not ready for. Impression and Recommendations - Palliative Care Impression: This is an 89-year-old woman who has spinal stenosis with severe lumbar pain, with increasing neuropathic symptoms of weakness and numbness. She also has known history of strokes, with residual left-sided weakness and feeling like she had may have an impending stroke. She is very anxious regarding long-term plan for her and her . She understands currently it is somewhat on the cusp of being safe and practical. Palliative care continue provide support for pain and symptom management as well as anticipatory guidance. Recommendations/Counseling Done: 1. Chronic back pain. This is multifactorial in origin, mostly attributed to her lumbar stenosis and continued degenerative disc disease process. Patient continues to refuse further work-up or intervention for this nor other medications. She is continued with her hydrocodone 5 mg / 325 mg using 6-8 tabs a day, though does withhold this she able to remain clear and able to oversee her 's care. She would likely do better on long-acting but is somewhat attached to her current regimen. Continue current regimen per patient's request. 2. RLS. Patient has described nighttime difficulty with restless legs, we did try Mirapex at bedtime, patient remains quite intolerant both emotionally and physically at times of new medications. She quit this fairly quickly. 3. Hypertension. Patient's blood pressures have remained in good range, she does check it 2-3 times a week. She is quite sensitive to stressors and anxiety. 4. Advanced care planning.Patient's biggest stressor continues to be her , he was quite frail and with recent hospitalization again for UTI. He does have ongoing worsening dementia, she remains at high risk for fall or recurrent stroke. Both goals for her and her are did like to stay at home as long as possible, though only has caregiving about 7 hours a day. 5. Covid 19. Patient's had tested positive, was asymptomatic. In follow-up she did have caregivers in the home who developed Covid, most likely the source of exposure. Her tests have all been negative, patient does not present with any persistent symptoms. 30 minutes with greater than 50% of this done in counseling regarding pain and symptom management, providing psychosocial support, encouragement for further planning for alternative living situation, and anticipatory guidance given patient's feeling of vulnerability particularly with possible recurrent stroke.
== END 2021-06-10 12:46 | disposition home or self-care (01) ==
LOC: PC 12:45
PROVIDERS: ATTEND Nurse Practitioner Adult Health
DX: Z51.5 Encounter for palliative care (principal); R53.83 Other fatigue; K59.03 Drug induced constipation; T40.2X5A Adverse effect of other opioids, initial encounter; M48.061 Spinal stenosis, lumbar region without neurogenic claudication; I69.354 Hemiplegia and hemiparesis following cerebral infarction affecting left non-dominant side; I10 Essential (primary) hypertension; G25.81 Restless legs syndrome; Z74.09 Other reduced mobility; F41.9 Anxiety disorder, unspecified; F32.A Depression, unspecified; Z79.899 Other long term (current) drug therapy; Z79.891 Long term (current) use of opiate analgesic; Z20.822 Contact with and (suspected) exposure to COVID-19; Z74.1 Need for assistance with personal care; Z63.6 Dependent relative needing care at home; Z66 Do not resuscitate
CPT/HCPCS: 99348

== ENCOUNTER 2021-10-07 12:15 | Outpatient (CLI) | payer MEDICARE, OTHER ==
--- NOTE | 2021-10-07 16:53 | CONSULTATION NOTE ---
Palliative Care Follow Up - Referral Referring Provider: Dr. Lay Eaton Time of Visit: [id number] Referral setting: Home Referral Reason: Chronic Back Pain/Anxiety/Left sided weakness - Information Sources Records reviewed: Previous records reviewed History/Review of Systems obtained from: Patient, Family ( present; has alzheimers) Exam limitations: No limitations - History of Present Illness Update Brief HPI Update: This is an 89-year-old woman with long history of strokes, last documented stroke 2013. She reports ongoing progressive left-sided weakness, known hereditary hyperlipidemia with intolerance to statins, worsening and severe progressive lumbar stenosis with increased left lower leg numbness and weakness. She is mostly sedentary, spends most of her time in bed or in recliner. She is only able to ambulate a few steps with her walker. She reports this continues to be more difficult. Since last visit, patient has had her Charles with severe Alzheimer's, on hospice. He had had C. difficile and had lost significant mount of weight, goals have been to focus on comfort. We did treat and he recovered, and was discharged from hospice. She is concerned and expresses and demonstrates caregiver fatigue. She has to "watch him every minute". She does not feel like she is ready to place them yet, but is finding herself exhausted, her mobility worse, and her strength "gone". Patient identifies more pain in her back, though feels like she needs to minimize her pain pain medication intake to be alert. She ran out of her Vicodin on Tuesday, she reports this is because she was overwhelmed with patient's nighttime/ing. She reports her weight is 139, has lost a few pounds, she reports that she is eating well. They do have caregiving 6 hours a day, but otherwise she has been managed herself and her .She has been trialed on methadone with good response, but again gets very anxious with any changes, continues with her Vicodin, reports she is taking 1 4-5 times a day. Past Medical History: hypertension, hyperlipidemia, pseudobulbar affect, history of 2 3 strokes, spinal stenosis, left-sided weakness, history of hip fracture, fatigue, hemorrhoids, chronic constipation, anxiety, depression Social History - Living Situation Living arrangement: At home Living Situation: With spouse/s.o. Support System: Patient's spouse Charles has Alzheimer's dementia, has had worsening behaviors, and now is drinking more particularly at night. He does have a Eprdue catheter, has been very difficult, he does not have hospice anymore and his gia is more onerous as far as his care on her. She does not feel like she is ready to place him yet, reports when he is not agitated and calm down he still remains quite loving and compassionate. Medications/Allergies - Medications Home Medications: Ambulatory Orders Medication Instructions Recorded Confirmed hydroCHLOROthiazide 25 mg PO DAILY 05/08/14 10/07/21 [Hydrochlorothiazide] HYDROcod/ACETAM 5/325 [Vicodin 1 - 2 ea PO Q4HR PRN MDD 8 tabs 07/18/15 10/07/21 5/325] Losartan Potassium 100 mg PO DAILY 08/08/15 10/07/21 Aspirin [Adult Low Dose Aspirin EC] 81 mg PO BID 01/11/17 10/07/21 Docusate Sodium 2 tab PO QPM 01/11/17 10/07/21 Senna [Senokot] 3 - 4 tab PO DAILY PM 01/11/17 10/07/21 Metoprolol Tartrate 25 mg PO BID 04/15/17 10/07/21 Omeprazole 20 mg PO DAILY PRN 06/22/17 10/07/21 Erythromycin Base [Erythromycin 1 applic EACHEYE DAILY PRN 08/16/17 10/07/21 Ophthalmic Ointment] Triamcinolone 0.1% Oint [Kenalog 1 applic TOP BID PRN 06/19/20 10/07/21 0.1% Oint] Bismuth Subsalicylate 2 tab PO BID PRN 09/29/20 10/07/21 [Pepto-Bismol] Ascorbic Acid [Vitamin C] 500 mg PO DAILY 10/07/21 10/07/21 Cholecalciferol (Vitamin D3) 1,000 mcg PO DAILY 10/07/21 10/07/21 [Vitamin D3] - Allergies Allergies/Adverse Reactions: Allergies Allergy/AdvReac Type Severity Reaction Status Date / Time Alwtmxh-MQC-FuO Reductase AdvReac Severe Unknown Verified 01/11/17 11:20 Inhibitor [Dklwzhg-Wjm-Fep Reductase Inhibitor] Review of Systems - Constitutional Constitutional: reports: Fatigue (persistent), Weakness (worsening left side; difficulty lifting left leg; spending more time in bed), Weight loss (139). denies: Fever, Chills - Eyes Eyes: reports: Vision loss - Ears, Nose & Throat Ears, Nose & Throat: reports: Hearing loss, Dry mouth - Cardiovascular Cardiovascular: reports: Exertional dyspnea, Decr. exercise tolerance. denies: Chest pain - Respiratory Respiratory: reports: SOB with exertion. denies: SOB at rest - Gastrointestinal Gastrointestinal: reports: Reflux/heartburn (with eating; using Pepto bismal at times after meals about 2 x a week;), Early satiety. denies: Constipation (controlled) - Genitourinary Genitourinary: reports: Frequency. denies: Incontinence - Musculoskeletal Musculoskeletal: reports: Back pain (escalating; feels "compression"), Muscle aches, Stiffness, Muscle weakness, Assistive devices (uses rollling walker) - Integumentary Integumentary: reports: Rash (improved), Pruritis, Dryness - Neurological Neurological: reports: General weakness, Focal weakness (reports left sided more notable), Numbness (bilaterally continues to progress; left greater than right;), Abnormal gait, Other (no falls) - Psychiatric Psychiatric: reports: Depression, Anxiety - All Other Systems All Other Systems: reports: Reviewed and negative Physical Exam - Vital Signs Temperature: 97.6 C Pulse Rate: 61 Respiratory Rate: 18 O2 Saturation: 97 Blood Pressure: 132/78 - Physical Exam General Appearance: positive: Alert, Mild distress (related to no sleep last night), Anxious (about her worsening status and husbands health; feeling exhausted), Other (appears pale and fatigued) Eyes Bilateral: positive: Normal inspection, Other (periorbital edema) ENT: positive: No signs of dehydration Neck: positive: Trachea midline Cardiovascular: positive: Regular rate & rhythm Respiratory: positive: No respiratory distress, Breath sounds nml Abdomen: positive: Non-tender, Soft, Nml bowel sounds Skin: positive: Pallor, Dryness, Pruritis Extremities: positive: No pedal edema Neurologic/Psychiatric: positive: Oriented x3, Weakness, Depressed mood/affect Palliative Care - POLST Patient has POLST: Yes POLST Status: DNR, Comfort Measures Pain: Pain worsening, Location (lumbar area), Severity (severe), Comment (worse with standing; can't sustain for 2-3 minutes; ran out of vicodin tuesday-denies any withdrawal symptoms) Feelings of wellbeing/Perceived Quality of Life: Fair, Worsening, Comment (tries to have a good attitude) Sleep: Sleeps poorly (related to being "on" for ) Constipation: Yes, Opoid induced, Intermittent constipation Performance Status: Patient reports functional status continues to decline, she does not except bathing assistance, or dressing. Though she definitely could use some assistance. She does have help with meal prep, household prep. She does take a nap at 1400 every day. She does have caregiving 6 hours a day will help with otherwise she is overseeing him. - Palliative Care Discussion: Patient shared her journey with continuing 's decline, education given regarding continued progression of Alzheimer's and expected behaviors as well's decline. She reports if she is nice and talks to him nicely, he will cooperate, denies feeling fearful for herself. She does have a alert. She feels that she feels like a "walking zombie" and has aged a lot over this last year, she does miss hospice support. She easily gets stressed, she reports it is "nobody's fault". Try to encourage her to consider low threshold would be for having him placed, she really wants to avoid this if possible both for financial as well as her commitment to their long-term relationship of 48 years. BelowShe herself has a POLST with DN AR and comfort measures, patient does not want her suffering or dying, though is feeling somewhat responsible at this point for her , unclear what long-term plan will be, though they do have DPOA and family aware of the complex situation Impression and Recommendations - Palliative Care Impression: This is an 89-year-old woman with spinal stenosis with severe lumbar pain, increasing neuropathic symptoms of weakness and numbness, as well as residual left-sided weakness. She is very anxious regarding long-term plan for her and her , has been in been on hospice discharge and transition to home health care. She presents with severe caregiver fatigue. Palliative care providing continued support with pain and symptom management as well as anticipatory guidance. Recommendations/Counseling Done: 1. Chronic back pain. This is multifactorial in origin, mostly attributed to her lumbar stenosis and continued degenerative disc disease process. She has refused further work-up or intervention. She has been consistent in wanting to stay with her hydrocodone 5 mg / 325 mg using 4-5 tabs a day, continue current regimen per patient's request. 2. Hypertension. Patient's blood pressure remaining did faint, she does check it every 2-3 times a week. She is very sensitive to stressors and anxiety. 3. Caregiver fatigue. Has been had been on hospice, continue to improve on hospice and now is discharge. Needing home health will order services. She remains "vigilant" and patient continues with worsening behaviors. Patient is also drinking, conversation regarding how to minimize risk. They do have someone overseeing her medications, unfortunately patient ran out of hydrocodone as she was not pain attention. 4. Advanced care planning. Patient's biggest stressor continues to be her , he does have ongoing worsening dementia, she remains at high risk for fall recurrent stroke. Both goals of her and her are to stay at home as long as possible, they have 6 hours of caregiving daily. Patient does have POLST with DN AR/DNI and comfort focused care 30 minutes with greater than 50% of this done in counseling regarding pain and symptom management, psychosocial support provided as well as anticipatory guidance
== END 2021-10-07 12:16 | disposition home or self-care (01) ==
LOC: PC 12:15
PROVIDERS: ATTEND Nurse Practitioner Adult Health
DX: Z51.5 Encounter for palliative care (principal); M54.9 Dorsalgia, unspecified; G89.29 Other chronic pain; I10 Essential (primary) hypertension; R53.83 Other fatigue; Z66 Do not resuscitate
CPT/HCPCS: 99348

== ENCOUNTER 2022-07-05 11:51 | Outpatient (CLI) | payer MEDICARE, OTHER | END 2022-07-05 23:59 | disposition critical access hospital (66) | LOC: EMS 11:51 | DX: R47.81 Slurred speech (principal); R29.810 Facial weakness; R53.1 Weakness | CPT/HCPCS: A0425; A0429 ==

== ENCOUNTER 2022-07-05 12:05 | Emergency (ER) | payer MEDICARE, OTHER ==
--- NOTE | 2022-07-05 12:22 | ED Physician Documentation ---
PD HPI FOCAL NEURO - Stated complaint Stated Complaint: CODE STROKE - Chief complaint Chief Complaint: Neuro - History obtained from History obtained from: Patient, EMS - History of Present Illness Contributing factors: negative: Anticoagulated - Additional information Additional information: 89-year-old female brought in by EMS. She states that she felt okay this morning at 9 AM, but then went back to bed. When she woke up around 1130 she felt like her speech was "garbled". EMS states when they arrived she had a right-sided facial droop and mild right-sided weakness. 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 She has caregivers at home. Patient has a POLST that is DNR, comfort care. Her symptoms have resolved at this time. Review of Systems Constitutional: denies: Fever Cardiac: denies: Chest pain / pressure Respiratory: denies: Cough GI: denies: Vomiting Skin: denies: Rash Musculoskeletal: denies: Neck pain, Back pain Neurologic: denies: Headache PD PAST MEDICAL HISTORY - Past Medical History Cardiovascular: High cholesterol Respiratory: None Endocrine/Autoimmune: None GI: None : None HEENT: None Psych: None Musculoskeletal: Osteoarthritis Derm: None - Past Surgical History Past Surgical History: No - Present Medications Home Medications: Ambulatory Orders Medication Instructions Recorded Confirmed hydroCHLOROthiazide 25 mg PO DAILY 05/08/14 10/07/21 [Hydrochlorothiazide] HYDROcod/ACETAM 5/325 [Vicodin 1 - 2 ea PO Q4HR PRN MDD 8 tabs 07/18/15 10/07/21 5/325] Losartan Potassium 100 mg PO DAILY 08/08/15 10/07/21 Aspirin [Adult Low Dose Aspirin EC] 81 mg PO BID 01/11/17 10/07/21 Docusate Sodium 2 tab PO QPM 01/11/17 10/07/21 Senna [Senokot] 3 - 4 tab PO DAILY PM 01/11/17 10/07/21 Metoprolol Tartrate 25 mg PO BID 04/15/17 10/07/21 Omeprazole 20 mg PO DAILY PRN 06/22/17 10/07/21 Erythromycin Base [Erythromycin 1 applic EACHEYE DAILY PRN 08/16/17 10/07/21 Ophthalmic Ointment] Triamcinolone 0.1% Oint [Kenalog 1 applic TOP BID PRN 06/19/20 10/07/21 0.1% Oint] Bismuth Subsalicylate 2 tab PO BID PRN 09/29/20 10/07/21 [Pepto-Bismol] Ascorbic Acid [Vitamin C] 500 mg PO DAILY 10/07/21 10/07/21 Cholecalciferol (Vitamin D3) 1,000 mcg PO DAILY 10/07/21 10/07/21 [Vitamin D3] Aspirin EC [Ecotrin] 81 mg PO DAILY #30 tablet 07/05/22 - Allergies Allergies/Adverse Reactions: Allergies Allergy/AdvReac Type Severity Reaction Status Date / Time Hxtxfjb-[id number]-[id number] Reductase AdvReac Severe Unknown Verified 07/05/22 12:32 Inhibitor [Ichjeqy-Xil-Jxo Reductase Inhibitor] - Social History Does the pt smoke?: No Smoking Status: Never smoker Does the pt drink ETOH?: No Does the pt have substance abuse?: No - Immunizations Immunizations are current?: Yes - POLST Patient has POLST: Yes PD ED PE NORMAL - Vitals Vital signs reviewed: Yes - General General: Alert and oriented X 3, No acute distress - HEENT HEENT: Atraumatic, PERRL, Moist mucous membranes - Neck Neck: Supple, no meningeal sign, No bony TTP - Cardiac Cardiac: RRR - Respiratory Respiratory: No respiratory distress, Clear bilaterally - Abdomen Abdomen: Soft, Non tender, Non distended - Derm Derm: Warm and dry, No rash - Extremities Extremities: No edema, No calf tenderness / cord - Neuro Neuro: Alert and oriented X 3, 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, Normal speech, Other (Left-sided arm and leg weakness, chronic) Eye Opening: Spontaneous Motor: Obeys Commands Verbal: Oriented GCS Score: 15 - Psych Psych: Normal mood, Normal affect NIHSS - Time Time: 12:10 - Level of Consciousness Level of consciousness: (0) Alert, Keenly responsive LOC Questions: (0) Answers both Q's correct LOC Commands: (0) Performs both correctly - Gaze Best Gaze: (0) Normal - Visual Visual: (0) No loss - Facial Palsy Facial Palsy: (0) Normal, symmetrical movement - Motor Arms (both separate) Motor Arm (right): (0) No drift Motor Arm (left): (3) No effort against gravity - Motor Legs (both separate) Motor Leg (right): (0) No drift Motor Leg (left): (3) No effort against gravity - Limb Ataxia Limb Ataxia: (2) Present in 2 limbs - Sensory Sensory: (0) Normal - Best Language Best Language: (0) No aphasia - Dysarthria Dysarthria: (0) Normal - Extinction and Inattention (formally neg Extinction and inattention: (0) No abnormality - Total Score/Results Total Score/Result: 8 Results - Vitals Vitals: Vital Signs - 24 hr 07/05/22 07/05/22 07/05/22 12:33 12:39 13:15 Temperature 36.6 C Heart Rate 104 H 94 93 Respiratory 14 15 18 Rate Blood Pressure 164/72 H 164/72 H 124/64 O2 Saturation 97 92 94 07/05/22 07/05/22 07/05/22 13:46 14:00 14:30 Temperature Heart Rate 99 108 H 99 Respiratory 18 18 18 Rate Blood Pressure 146/71 H 146/71 H 140/66 H O2 Saturation 93 94 96 07/05/22 07/05/22 07/05/22 15:18 16:51 17:57 Temperature Heart Rate 94 70 76 Respiratory 18 12 14 Rate Blood Pressure 95/52 L 132/54 H 143/61 H O2 Saturation 96 93 93 Oxygen O2 Source [] Room air O2 Source [] Room air O2 Source Room air - EKG (time done) 1228 Rate: Rate (enter#) (102) Rhythm: Sinus tachycardia [place]: Normal Intervals: Normal MS QRS: Normal Ischemia: Normal ST segments - Labs Labs: Laboratory Tests 07/05/22 07/05/22 07/05/22 12:29 12:29 12:29 WBC 6.7 RBC 3.77 L Hgb 11.5 L Hct 35.7 L MCV 94.7 MCH 30.5 MCHC 32.2 RDW 13.0 Plt Count 240 MPV 11.1 H Neut # (Auto) 3.7 Lymph # (Auto) 2.5 [place] # (Auto) 0.4 Eos # (Auto) 0.1 Baso # (Auto) 0.0 Absolute Nucleated RBC 0.00 Nucleated RBC % 0.0 PT 11.8 INR 1.0 APTT 29.4 Sodium 138 Potassium 4.4 Chloride 102 Carbon Dioxide 26 Anion Gap 10.0 BUN 32 H Creatinine 1.3 H Estimated GFR (MDRD) 39 L Glucose 126 H Calcium 9.5 Total Bilirubin 0.7 AST 16 ALT 16 Alkaline Phosphatase 66 Total Protein 6.3 L Albumin 3.3 Globulin 3.0 Albumin/Globulin Ratio 1.1 Urine Color Urine Clarity Urine pH Ur Specific [place] Urine Protein Urine Glucose (UA) Urine Ketones Urine Occult Blood Urine Nitrite Urine Bilirubin Urine Urobilinogen Ur Leukocyte Esterase Ur Microscopic Review Urine Culture Comments 07/05/22 16:06 WBC RBC Hgb Hct MCV MCH MCHC RDW Plt Count MPV Neut # (Auto) Lymph # (Auto) [place] # (Auto) Eos # (Auto) Baso # (Auto) Absolute Nucleated RBC Nucleated RBC % PT INR APTT Sodium Potassium Chloride Carbon Dioxide Anion Gap BUN Creatinine Estimated GFR (MDRD) Glucose Calcium Total Bilirubin AST ALT Alkaline Phosphatase Total Protein Albumin Globulin Albumin/Globulin Ratio Urine Color YELLOW Urine Clarity CLEAR Urine pH 6.0 Ur Specific [place] 1.010 Urine Protein NEGATIVE Urine Glucose (UA) NEGATIVE Urine Ketones NEGATIVE Urine Occult Blood NEGATIVE Urine Nitrite NEGATIVE Urine Bilirubin NEGATIVE Urine Urobilinogen 0.2 (NORMAL) Ur Leukocyte Esterase NEGATIVE Ur Microscopic Review NOT INDICATED Urine Culture Comments NOT INDICATED - Rads (name of study) Head CT Radiology: Final report received, See rad report Angiogram head Radiology: Final report received, See rad report Angiogram neck Radiology: Final report received, See rad report PD Medical Decision Making - ED course Complexity details: reviewed results, re-evaluated patient, considered differential, d/w patient ED course: 89-year-old female with what appears to have been a TIA earlier today. She is fully asymptomatic on arrival to the emergency department. She has chronic left-sided weakness but this is unchanged. Her CT angiogram of the head and neck did not show any significant abnormalities at this time. She is not currently on aspirin at home and we will restart this. Her CBC shows a mild anemia, otherwise no significant abnormalities. Coag studies are normal. Her creatinine is mildly elevated above her usual baseline. BUN is elevated as well, her urinalysis does not show any signs of infection. Patient states that she feels normal and feels that her speech is normal. She states that the left- sided weakness is at her normal baseline. Patient would like to go home at this time. She is DNR, comfort care. We will restart her on aspirin and have her follow with her doctor. Patient counseled regarding signs and symptoms for which I believe and urgent re-evaluation would be necessary. Patient with good understanding of and agreement to plan and is comfortable going home at this t tanika This document was made in part using voice recognition software. While efforts are made to proofread this document, sound alike and grammatical errors may occur. Departure - Departure Disposition: 01 Home, Self Care Clinical Impression: TIA (transient ischemic attack), Dehydration Condition: Good Instructions: ED Dehydration, ED Transient Ischemic Attack Follow-Up: Yazmin Mendez ARNP [Primary Care Provider] - Prescriptions: Aspirin EC [Ecotrin] 81 mg PO DAILY #30 tablet Comments: Please follow-up with your doctor for further care. Your head CT, angiogram of your head and neck do not show any acute abnormalities today. Please make sure that you are taking aspirin daily as it does not appear that you are taking this currently. Please return if you worsen. Your laboratory studies do show mild dehydration. Your prescription was sent to [facility] in [place]. Discharge Date/Time: 07/05/22 18:00
--- NOTE | 2022-07-05 12:27 | CT Report ---
PROCEDURE: Head W/O Stroke Protocol INDICATIONS: R sided weakness TECHNIQUE: Noncontrast 4.5 mm thick angled axial sections acquired from the foramen magnum to the vertex, with c oronal reformats. For radiation dose reduction, the following was used: automated exposure control, adjustment of mA and/or kV according to patient size. COMPARISON: 05/08/2014 and MRI of brain dated 05/08/2014. FINDINGS: Image quality: Excellent. CSF spaces: Basal cisterns are patent. No extra-axial fluid collections. Ventricles are normal in size and shape. Brain: No midline shift. No intracranial masses or hemorrhage. There is age related volume loss and moderate White matter chronic small vessel ischemic changes. Benign-appearing calcifications are not ed in bilateral basal ganglia. Old lacunar infarct is seen in left basal ganglia. Cobb-white matter i nterface is normal. Skull and face: Calvarium and visualized facial bones are intact, without suspicious lesions. Sinuses: Visualized sinuses and mastoids are clear. IMPRESSION: 1. No CT evidence of acute intracranial abnormalities. No contraindication to IV TPA therapy. 2. Old lacunar infarct in left basal ganglia. Age related volume loss and white matter chronic small vessel ischemic changes. Findings were reported to referring ER physician Dr. Sauceda at 12:25 PM 07/05/2022. This study fulfills neurological imaging criteria for inclusion or exclusion of acute stroke therapie s based on available published neurological imaging guidelines. Reviewed by: Alejandro Valenzuela MD on 07/05/2022 12:25 PM PST Approved by: Alejandro Valenzuela MD on 07/05/2022 12:25 PM PST Station ID: [id number]
[2022-07-05] MEDS ORDERED: iohexoL-300 100 ML VIAL IVP ONE (12:30)
[2022-07-05 12:34] LABS: BASOPHILS % (AUTO) 0.3 %; EOSINOPHILS # (AUTO) 0.1 10^3/uL (0.0-0.7); HCT - HEMATOCRIT 35.7 % (37.0-47.0); HGB - HEMOGLOBIN 11.5 g/dL (12.0-16.0); LYMPHOCYTES # (AUTO) 2.5 10^3/uL (1.5-3.5); LYMPHOCYTES % (AUTO) 37.8 %; MEAN CORPUSCULAR HEMOGLOBIN 30.5 pg (27.0-31.0); MEAN CORPUSCULAR HGB CONC 32.2 g/dL (32.0-36.0); MEAN CORPUSCULAR VOLUME 94.7 fL (81.0-99.0); MEAN PLATELET VOLUME 11.1 fL (7.9-10.8); MONOCYTES # (AUTO) 0.4 10^3/uL (0.0-1.0); MONOCYTES % (AUTO) 5.7 %; NEUTROPHILS # (AUTO) 3.7 10^3/uL (1.5-6.6); NEUTROPHILS % (AUTO) 54.8 %; PLT - PLATELET COUNT 240 10^3/uL (130-450); RED BLOOD COUNT 3.77 10^6/uL (4.20-5.40); WHITE BLOOD COUNT 6.7 x10^3/uL (4.8-10.8)
[2022-07-05 12:40] LABS: PT - PROTHROMBIN TIME 11.8 secs (9.9-12.6)
--- NOTE | 2022-07-05 12:41 | CT Report ---
PROCEDURE: ANGIO HEAD W/WO INDICATIONS: R facial droop, weakness CONTRAST: 80ml Omnipaque 300 TECHNIQUE: Precontrast 4.5 mm thick angled axial sections acquired from the foramen magnum to the vertex. Afte r the administration of intravenous contrast, 1 mm thick sections acquired through the [place] of [place] is. Postcontrast 4.5 mm thick sections then re-acquired from the foramen magnum to the vertex. 3-di mensional lqduatj-ukwzghkvt-yvshxhxsdv (MIP) and/or volume rendering reformats were acquired of the c entral intracranial vasculature. For radiation dose reduction, the following was used: automated ex posure control, adjustment of mA and/or kV according to patient size. COMPARISON: Correlation with prior head CT and MRI studies. FINDINGS: Image quality: Excellent. Anterior circulation: Intracranial mild atherosclerotic narrowing of the left supraclinoid ICA. Righ t intracranial ICA appears widely patent with mild atherosclerotic calcification of the cavernous seg ment. The flow within the paired anterior cerebral arteries is normal and symmetric. The flow within the middle cerebral arteries is normal and symmetric. The anterior communicating artery is seen. N o aneurysms are seen. Posterior circulation: Visualized portions of the vertebral arteries demonstrate normal caliber, and join to form a normal appearing basilar artery. Flow within the posterior cerebral arteries is norm al and symmetric. No aneurysms are seen. CSF spaces: Ventricles are normal in size and shape. Basal cisterns are patent. No extra-axial flu id collections. Brain: No midline shift. No intracranial bleeds or masses. Cobb-white matter interface appears int act. Skull and face: Calvarium and facial bones appear intact, without suspicious lesions. Sinuses: Visualized sinuses and mastoids are clear. IMPRESSION: No large vessel occlusion or hemodynamically significant stenosis of the major intracranial arterial circulation. Mild narrowing of the left intracranial left ICA supraclinoid segment. Reviewed by: Rito Hernández MD on 07/05/2022 12:40 PM PST Approved by: Rito Hernández MD on 07/05/2022 12:40 PM PST Station ID: [id number]
[2022-07-05 12:45] LABS: ALBUMIN 3.3 g/dL (3.2-5.5); ALBUMIN/GLOBULIN RATIO 1.1 (1.0-2.2); BILIRUBIN,TOTAL 0.7 mg/dL (0.2-1.0); CALCIUM 9.5 mg/dL (8.5-10.3); CREATININE 1.3 mg/dL (0.4-1.0); POTASSIUM 4.4 mmol/L (3.5-5.0); TOTAL PROTEIN 6.3 g/dL (6.7-8.2)
--- NOTE | 2022-07-05 12:46 | CT Report ---
PROCEDURE: ANGIO NECK W INDICATIONS: R facial droop, weakness CONTRAST: 80ml Omnipaque 300 TECHNIQUE: After the administration of intravenous contrast, 1.5 mm axial sections acquired from the aortic arch to the [place] of [place]. Coronal 3-D maximum intensity projection (MIP) and/or volume rendering ref ormats were then performed. For radiation dose reduction, the following was used: automated exposur e control, adjustment of mA and/or kV according to patient size. COMPARISON: None. FINDINGS: Bovine arch anatomy with the left common carotid artery and brachiocephalic trunk shared a common nyasia gin from the aortic arch. Origins of the arch branch vessels are widely patent. No hemodynamically si gnificant narrowing of the subclavian arteries are cervical portions of the vertebral arteries which are codominant. The bilateral common carotid arteries are widely patent. Approximately 50% narrowing of the left carotid bifurcation and origin of the left ICA, both measuring minimum luminal diameter o f 2 mm compared with average luminal diameter of the remaining left cervical internal carotid artery of 4 mm. No significant narrowing of the right carotid bifurcation or right ICA origin. No significan t soft tissue abnormality. Mild emphysematous changes in the lung apices. 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 The estimate of stenosis included in the report of the imaging study was calculated using the NASCET method. Reviewed by: Rito Hernández MD on 07/05/2022 12:45 PM PST Approved by: Rito Hernández MD on 07/05/2022 12:45 PM PST Station ID: [id number]
[2022-07-05 12:48] LABS: PARTIAL THROMBOPLASTIN TIME 29.4 secs (24.9-33.3)
[2022-07-05] MEDS ORDERED: iohexoL-300 100 ML VIAL ONE (13:47)
[2022-07-05] MEDS ORDERED: SODIUM CHLORIDE 0.9% 1,000 ML IV STA (13:51)
[2022-07-05 16:15] LABS: BILIRUBIN,URINE NEGATIVE (NEGATIVE); GLUCOSE, URINE (UA) NEGATIVE (NEGATIVE); KETONES,URINE (UA) NEGATIVE (NEGATIVE); LEUKOCYTE ESTERASE, URINE NEGATIVE (NEGATIVE); NITRITE,URINE NEGATIVE (NEGATIVE); OCCULT BLOOD,URINE NEGATIVE (NEGATIVE); PROTEIN,URINE NEGATIVE (NEGATIVE); UROBILINOGEN,URINE 0.2 (NORMAL) E.U./dL (NORMAL)
[2022-07-05 16:16] LABS: CLARITY,URINE CLEAR (CLEAR)
[2022-07-05] MEDS ORDERED: ASPIRIN CHEW 81 MG TABLET PO STA (16:38)
[2022-07-05 17:59] VITALS: BP 143/61
== END 2022-07-05 18:00 | disposition home or self-care (01) ==
LOC: EDUNIT# → ED 12:05
DX: G45.9 Transient cerebral ischemic attack, unspecified (principal); E86.0 Dehydration; Z79.82 Long term (current) use of aspirin; Z79.899 Other long term (current) drug therapy; Z66 Do not resuscitate
CPT/HCPCS: 36415; 51701; 70450; 70496; 70498; 80053; 81003; 85025; 85610; 85730; 93005; 96360; 99284; A9270; Q9967; 81001; 87086